=== PATIENT | male | born 1945 | race Caucasian/White ===

== ENCOUNTER → 2018-08-28 14:23 | Outpatient (CLI) | payer MEDICARE, OTHER, SELFPAY ==
--- NOTE | 2018-08-28 | DI.MRI.S_ITS ---
PROCEDURE: MR KNEE RT WO CON INDICATIONS: UNILATERAL PRIMARY OSTEOARTHRITIS OF RIGHT KNEE TECHNIQUE: Noncontrast sagittal PD fast spin echo and T2 fast spin echo with fat saturation, sagittal 3-D FLASH with fat saturation; coronal T1 spin echo and PD fast spin echo with fat saturation, and axial PD fast spin echo with fat saturation through the knee. COMPARISON: None. FINDINGS: Image quality: Excellent. Menisci: Medial extrusion of the medial meniscus. Amorphous high signal intensity within the loop medial meniscal body and posterior horn, demonstrating superior and inferior articular surface extension indicating diffuse degenerative tearing. Linear high signal intensity obliquely traverses the anterior horn lateral meniscus, demonstrating superior and inferior articular surface extension, indicating oblique tearing. Cruciate ligaments: There is moderate signal loss and mild redundancy of the anterior cruciate ligament. Posterior cruciate ligament demonstrates mild T2 signal elevation within its substance. Medial structures: There is a large amount of fluid within the mid and inferior aspects of the medial collateral ligament, measuring roughly 105 mm craniocaudal by 10 mm transverse X 10 mm anteroposterior. Visualized portions of the pes anserinus tendons appear normal. No abnormal bursal fluid. Lateral structures: The lateral collateral ligament, long and short heads of the biceps femoris tendon appear intact. The popliteus tendon appears normal. Iliotibial band appears normal. Anterior structures: The quadriceps and patellar tendons appear intact. Mild T2 signal elevation within the patellar tendon at the patellar insertion site. Patellar alignment is normal. No femoral trochlear dysplasia or ventral trochlear prominence. No edema in the infrapatellar fat pad. Moderate prepatellar subcutaneous edema. Bones and cartilage: No bone marrow contusions or fractures. Mild periarticular osteophyte formation is present. There is mild subchondral ill-defined T2 signal elevation within the weightbearing aspects of the medial femoral condyle and medial tibial plateau. There is a 1-2 mm diameter full-thickness fissure within the articular cartilage overlying the medial patellar facet. Severe diffuse articular cartilage loss overlies the weightbearing aspects of the medial femoral condyle and medial tibial plateau. Mild diffuse articular cartilage loss overlies the weightbearing aspects of the lateral femoral condyle and lateral tibial plateau. Joint space: There is a small knee joint effusion and a small Chopra's cyst. There is a small ganglion cyst along the popliteus which contains several small intra-articular loose bodies. Multiple small intra-articular loose bodies within the posterior central knee joint. Normal appearing synovial plicae are incidentally noted. The medial plica is interposed between the medial facet and medial femoral trochlea. IMPRESSION: 1. Medial and lateral meniscal tearing. 2. Partial-thickness anterior and posterior cruciate ligament tears. 3. Severe medial collateral ligament bursitis. 4. Knee joint effusion, Chopra's cyst, ganglion cyst along the popliteus, and intra-articular loose bodies as above. 5. Prepatellar bursitis. 6. Mild patellar tendinitis. 7. Tricompartmental osteoarthritis with associated articular cartilage loss as above. 8. The medial plica protrudes between the medial patellar facet and medial femoral trochlea, with a focal articular cartilage defect within the adjacent medial patellar facet. 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 Dictated by: Myra Abarca M.D. on 08/28/2018 at 16:01 Approved by: Myra Abarca M.D. on 08/28/2018 at 16:10
== END ==
PROVIDERS: PCP Physician Assistant; Visit Provider Orthopaedic Surgery
DX: M17.11 Unilateral primary osteoarthritis, right knee (principal); S83.281A Other tear of lateral meniscus, current injury, right knee, initial encounter; S83.241A Other tear of medial meniscus, current injury, right knee, initial encounter; S83.511A Sprain of anterior cruciate ligament of right knee, initial encounter; S83.521A Sprain of posterior cruciate ligament of right knee, initial encounter; M70.51 Other bursitis of knee, right knee; M70.41 Prepatellar bursitis, right knee; M25.461 Effusion, right knee; M67.462 Ganglion, left knee; M67.461 Ganglion, right knee; M76.51 Patellar tendinitis, right knee
CPT/HCPCS: 73721

== ENCOUNTER 2018-09-25 11:50 | Inpatient (IN) | payer MEDICARE, OTHER, SELFPAY ==
[2018-09-14 10:50] VITALS: BMI 29.5
[2018-09-24] VITALS (14 sets, daily range): BP systolic 118–158; BP diastolic 54–91; PULSE 64–97; RESP 12–20; TEMP 35.8–36.8; O2SAT 10–98; BMI 29.5
--- NOTE | 2018-09-24 06:00 | DI.RAD.S_ITS ---
PROCEDURE: XR KNEE RT 1TO2V INDICATIONS: total right knee TECHNIQUE: 2 view(s) of the knee acquired. COMPARISON: [facility] [place], CR, XR KNEE ARTHRITIC SERIES BI, 11/26/2017, 14:37. [facility], MR, MR KNEE RT WO CON, 08/28/2018, 14:41. [facility] [place], CR, XR BONE LENGTH SCANOGRAM, 08/28/2018, 13:39. FINDINGS: Bones: Patient is status post right knee total arthroplasty. Hardware components are in expected positions. Visualized bony structures are intact. Soft tissues: Overlying postoperative changes are noted. IMPRESSION: Expected postsurgical changes. Dictated by: Ronen Nichols M.D. on 09/24/2018 at 16:13 Approved by: Ronen Nichols M.D. on 09/24/2018 at 16:14
--- NOTE | 2018-09-24 12:27 | PM.PREOP ---
Pre-operative Note Interval Note Pre-op Check: Yes History & Physical Reviewed by Physician and Yes Exam Performed Changes: No
--- NOTE | 2018-09-24 12:30 | P.OP_ITS ---
Operative Date/Time/Diagnoses Date of procedure: 09/24/18 Time of procedure: 14:58 Pre-op diagnosis: Right knee osteoarthritis Post-op diagnosis: same Procedure & Clinicians Procedure: Right total knee arthroplasty Same procedure as scheduled: Yes Indications: The patient presents today for total knee arthroplasty after failure of conservative treatment. The nature of the procedure including the risks and benefits, alternatives, postoperative course and expected outcome were discussed and all questions answered. Consent was obtained. Operative site confirmed and marked. Surgeon: Ruslan Barry Machine Set Up Operator: Rohith Arrieta Anesthesia Type: General, Spinal, Peripheral nerve block and Local Operative Notes Findings: Severe osteoarthritis with varus alignment Closure Type: primary Specimen(s): none sent Implants & Drains: [employer] BCS: 9 femoral component, 7 tibial component, 9 mm BCS polyethylene tray and 38 x 9 mm round patella Applied: implant(s) Estimated Blood Loss (mL): 50 Blood products transfused: none Tourniquet time (min): 40 Procedure in detail: The patient was taken to the operative suite and placed under general and spinal anesthesia with an adductor nerve block. The patient was given prophylactic antibiotics prior to surgery. The patient was also given tranexamic acid, 1 g, just prior to surgery for postoperative hemostasis. The lateral knee was prepped and the joint injected with 20 mL of 1% Lidocaine with epinephrine. The knee was then prepped and draped in usual sterile fashion. The leg was exsanguinated with an Esmarch dressing and the tourniquet raised to 250 torr. A 15 cm anterior incision was made. Next a medial trivector arthrotomy was made. The extensor mechanism was marked to ensure accurate repair. Initial exposing dissection was carried out medially and laterally. The knee was then extended and the patellar thickness was measured and a cut made removing approximately 9 mm of bone with a goal of restoring normal patellar thickness. The patella was then sized and drilled. Some excess lateral bone was excised and the patellofemoral ligament released. The tourniquet was then released. The knee was then flexed and the [employer] femoral guide was placed. The anterior pins were placed and the distal rotation holes drilled. The distal cutting guide was placed and the templated distal femoral cut was made. The templating cutting block was then placed and the anterior, posterior and chamfer cuts made. The [employer] tibial guide was placed and the alignment checked along the axis of the proximal tibial with a will. The proximal tibial cut was then made with an oscillating saw. All meniscus and bony debris was then removed. Flexion extension gaps were checked. The knee was somewhat tight in both flexion and extension. Another 2 mm was resected from the tibia. There is is mild tightness medially. This was corrected with a percutaneous release of the MCL with an 18 gauge needle along with standard soft tissue releases and osteophyte resection. The soft tissues were then injected with a combination of 20 mL of half percent Marcaine with epinephrine and 20 mL of Exparel. The trial components were then placed. The knee went into essentially extension and flexion beyond 120?. There was excellent medial- lateral balance throughout motion. Patellar tracking was excellent. The trial components were removed and size is confirmed for the final implants. The knee was then exsanguinated with an Esmarch dressing and the tourniquet reapplied for cementing. The knee was cleansed with Pulsavac irrigation and dried. The final components were cemented in with high viscosity vacuum mixed bone cement with antibiotics. The knee was held in extension and the patellar clamp until the cement had adequately cured. The knee was then irrigated with dilute Betadine solution. The extensor mechanism was closed with 5 interrupted #1 Vicryl sutures in 90 degrees of flexion. The joint was then injected with a combination of 1 g of tranexamic acid and 20 mL of quarter percent Marcaine with epinephrine. The subcutaneous tissue was closed with 2-0 Vicryl. The skin was closed with david and surgical adhesive. An Aquacell dressing and Indra wrap were then applied. Complications: none Condition: stable Disposition: PACU Plan for aftercare: [facility] protocol.
[2018-09-24] MEDS: ACETAMINOPHEN 325 MG TABLET 975 MG PO ×2 (12:34→20:30)
[2018-09-24] MEDS: LACTATED RINGERS 1,000 ML 42 ML IV ×2 (12:34→15:33)
[2018-09-24] MEDS: PREGABALIN 75 MG CAPSULE PO (12:35)
[2018-09-24] MEDS: CELECOXIB 200 MG CAPSULE PO (12:35)
[2018-09-24] MEDS: fentaNYL 100 MCG/2 ML INJ 50 MCG IV (12:44)
[2018-09-24] MEDS: CEFAZOLIN 2 GM/100 ML FROZ.PIGGY IV ×2 (13:12→20:27)
[2018-09-24] MEDS: LIDOCAINE 1% W/EPI INJ 20 ML INJ (13:25)
[2018-09-24] MEDS: TRANEXAMIC ACID 1,000 MG VIAL 2000 MG INJ ×2 (13:25→13:53)
--- NOTE | 2018-09-24 13:43 | SUR.OPER ---
Supine on padded OR bed. Pillow under head, arms secured on padded armboards <90 degree abduction. Safety belt across torso. Non-operative leg secured with tape over blanket over lower leg. Operative leg secured in De[employer]o/Gregory positioner. Foam padded brace at thigh of operative leg.
[2018-09-24] MEDS: BUPIVACAINE LIPOSOME 266 MG/20 ML VIAL INJ (13:50)
[2018-09-24] MEDS: POVIDONE-IODINE 15 ML, SODIUM CHLORIDE 0.9% 250 ML TOP (13:53)
[2018-09-24] MEDS: BUPIVACAINE 0.5% W/ EPI (PF) VIAL 30 ML INJ (13:55)
--- NOTE | 2018-09-24 15:29 | SUR.PHASEI ---
Report called to SONIA Ramirez.
--- NOTE | 2018-09-24 15:47 | SUR.PHASEI ---
Pt transferred to the floor. Report to SONIA Ramirez. O2 sat 89-92%ra. Otherwise VS stable. Drsg cdi. Pt able to move ble. Pt advised to rest his rt knee as he was frequently moving the knee. IV saline locked. Belongings bag and CPAP with patient.
[2018-09-24] MEDS: LACTATED RINGERS 1,000 ML 125 ML IV (17:13)
[2018-09-24] MEDS: MEMANTINE HCL 5 MG TABLET 10 MG PO (20:30)
[2018-09-24] MEDS: ASPIRIN EC 81 MG TABLET PO (20:30)
[2018-09-24] MEDS: DONEPEZIL 5 MG TABLET 10 MG PO (20:31)
--- NOTE | 2018-09-24 22:13 | PC.NURSE ---
Patient alert to self and day of the week only. Denies pain, 97% on 2L NC, now on 1L via CPAP and sat is 93%. Lung sounds are diminished with some wheezes bilaterally in upper lobes. CMS: pt felt numb from hips to toes when he first came from PACU, now has full sensation with no paresthesia, pulses are equal. Pain is 4-5/10, will medicate as ordered. IVF infusing as ordered. Patient has already been oriented to room and use of call light. Patient has voided successfully in urinal. BA active. Will continue to monitor.
--- NOTE | 2018-09-24 23:58 | PC.NURSE ---
Addendum entered by Estella Ramirez R.N. 09/25/18 03:16: When asked states pain isn't too bad but rates severity as 6/10; agreeable to taking Ibuprofen as did not want narcotics. Original Note: Patient is alert but oriented only to self and that he is in the hospital. Did know month/day but not year. Has delayed responses and difficulty word finding. Breath sounds very diminished with inspiratory rhonchi throughout. Currently on CPAP with 1L oxygen bled in and sat is 95%. HRR. Denies nausea. BT present but denies flatus. Has been voiding per urinal; denies dysuria, frequency or urgency. Able to turn himself in bed. Indra wrap to right knee is CDI. States pain is currently 4/10 and tolerable; declines pain meds but agreeable to ice pack. CMS is intact. Wearing bilateral calf SCD's. Fall risk score is high and bed alarm is activated.
[2018-09-25] VITALS (14 sets, daily range): BP systolic 91–146; BP diastolic 53–84; PULSE 44–77; RESP 15–22; TEMP 36.3–36.7; O2SAT 94–98
[2018-09-25] MEDS: LACTATED RINGERS 1,000 ML 125 ML IV (01:42)
[2018-09-25] MEDS: IBUPROFEN 600 MG TABLET PO ×2 (03:14→09:57)
[2018-09-25] MEDS: CEFAZOLIN 2 GM/100 ML FROZ.PIGGY IV (05:11)
[2018-09-25 06:51] LABS: Hematocrit 36.3 % (41-53); Hemoglobin 12.3 g/dL (13.5-17.5)
[2018-09-25] MEDS: ROSUVASTATIN 10 MG TABLET 2.5 MG PO (08:35)
[2018-09-25] MEDS: ACETAMINOPHEN 325 MG TABLET 975 MG PO ×3 (08:36→20:33)
[2018-09-25] MEDS: CITALOPRAM 20 MG TABLET PO (08:36)
[2018-09-25] MEDS: ASPIRIN EC 81 MG TABLET PO ×2 (08:36→20:32)
[2018-09-25] MEDS: methIMAzole 5 MG TABLET PO (08:36)
[2018-09-25] MEDS: AMLODIPINE 5 MG TABLET PO (08:36)
[2018-09-25] MEDS: LISINOPRIL 5 MG TABLET PO (08:36)
[2018-09-25] MEDS: OXYCODONE IR 5 MG TABLET PO ×4 (08:44→20:32)
--- NOTE | 2018-09-25 09:08 | PT.IIE ---
Addendum entered and electronically signed by Pam Melendez PT 09/25/18 16:46: This is to certify that I have reviewed this documentation and POC Original Note: Current Diagnoses Obstructive sleep apnea (adult) (pediatric) (09/24/18) Unilateral primary osteoarthritis, right knee (09/24/18) Surgery Performed Operation Date: 09/24/18 13:30 Actual Procedures p Total Knee Arthroplasty(Right) - Ruslan Barry MD Surgical History (Last Updated 09/14/18 @ 11:29 by Amy Chavira, RN) History of blepharoplasty (Acute) History of cataract removal with insertion of prosthetic lens (Acute) Previous back surgery (Acute) Medical History (Last Updated 09/14/18 @ 11:49 by Amy Chavira RN) CAD (coronary artery disease) (Acute) COPD (chronic obstructive pulmonary disease) (Acute) Depression (Acute) Diarrhea (Acute) Eczema (Acute) Enlarged prostate (Acute) Glaucoma (Acute) Graves disease (Acute) Gum disease (Acute) History of bronchitis (Acute) History of migraine (Acute) Hyperlipidemia (Acute) Hypertension (Acute) Hyperthyroidism (Acute) Kidney stone (Acute ~2016) Ocular myasthenia gravis (Acute) Sleep apnea treated with nocturnal BiPAP (Acute) Vascular dementia (Acute) Physical Therapy Inpatient Evaluation/Re-Eval M1 PT/OT-IP Prior Functional Status Start: 09/25/18 13:32 Freq: NEEDED Status: Active Protocol: Document 09/25/18 15:13 (Rec: 09/25/18 14:00 [id number]) Medical Review Prior Functional Status Medical History Reviewed Yes Communication Pt noted to have dementia per medical history and verified by nursing. Mobility and Gait Pt previously ambulated with no AD and took frequent walks with his dog. All other mobilities including showering , bathing and self care are stated as independent. Social History Household Members spouse Number of Floors (Floors) One Floor Number of Stairs To Enter/Railing? None. Pt has a big basement but he lives entirely on the first floor. Home Environment Standard Height Toilet Walk in Shower Home Equipment Front Wheel Walker Straight Cane Raised Toilet Seat w/Armrests Shower Seat with Backrest Hand Held Shower Grab Bars Near Toilet Grab Bars In Shower Employment Status Retired Additional Social History Comment pt lives with (Cayla) who will be avaliable 16/06 to assist. M2 PT-IP Current Condition Start: 09/25/18 13:32 Freq: NEEDED Status: Active Protocol: Document 09/25/18 15:13 (Rec: 09/25/18 14:00 [id number]) Physical Therapy Current Condition Current Condition Evaluation Date 09/25/18 Treatment Diagnosis R TKA; difficulty walking Onset Date 09/24/18 Weight Bearing Status Weight Bearing Status Weight Bear as Tolerated M3 PT-IP Subjective Start: 09/25/18 13:32 Freq: NEEDED Status: Active Protocol: Document 09/25/18 15:13 (Rec: 09/25/18 14:00 [id number]) Subjective Physical Therapy Visit Type Type Initial Evaluation Visit Start Time 09:08 Visit Stop Time 09:48 Total Visit Minutes 40 Number of CHIMNEY SWEEPER Visits 0 Physical Therapy Visit Comments Patient Comments Pt agreeable to mobilize with PT. Patient Goals Plans to go home with his at d/c. Therapy Pain Assessment Pain When Pain Assessed During Mobility Pain Present Pain Present Pain Reported Location Right Knee Scale Used 4/10 at rest; 7/10 with ambulation Pain Management Techniques Apply Cold Elevation Modification of Treatment Re-positioning Timing of Activity with Medications M4 PT-IP Mobility and Gait Start: 09/25/18 13:32 Freq: NEEDED Status: Active Protocol: Document 09/25/18 15:13 (Rec: 09/25/18 14:00 [id number]) PT-Bed Mobility Assessment Supine to Sit Supine to Sit Standby Assistance Sit to Supine Sit to Supine Standby Assistance Scooting Scooting to Edge of Bed Standby Assistance PT-Transfer Assessment Sit to and From Stand Sit to and from Stand Minimal Assistance 1 Person Assistance Use of Upper Extremities Equipment Transfer Assistive Device Gait Belt Front Wheeled Walker Orthotic/Prosthetic Devices or Brace: No Transfers Transfer Destination Bed Chair Transfer Technique Stand Step Pivot Transfer Ability Level of Assist Contact Guard Assistance Minimal Assistance Use of Upper Extremities Comments Mobility Comments Resting vitals 100/54 HR 56. Supine <> sit completed SBA and no cues; pt uses BUE to assist leg. Sit <> stand is Franck x1 and max cues to use UE to push from bed/chair (and avoid walker). Standing BP 144/73 HR 82. Despite 6 additoinal sit <> stands, pt continues to need Franck x1 and max cues for hand placement. After ambulation (see below) pt completes transfer bed > chair with minAx1 to rise and CGA for stand step pivot and cues to manage walker and for foot placement. Gait Assessment Gait Gait Assistance Required: Contact Guard Assist Distance (Feet) 15 Able to Maintain Weight Bearing Status Yes During Gait Assistive Devices Assistive Device Gait Belt Front Wheeled Walker Orthotic/Prosthetic Devices or Brace: No Gait Deviations General Gait Pattern Decreased Stride Length Decreased Feet Clearance Factors Limiting Gait Function Factors Limiting Gait Function Decreased Activity Tolerance Decreased Strength Difficulty Following Directions Incoordination Limited Range of Motion Pain Poor Balance Poor Safety Awareness Comments Gait Comments Pt ambulates 15 ft in room with CGA and fww. Pt requires max cues to manage walker and to not put walker too far out in front of him. He tends to drag his R foot behind him despite max cues. PT-Balance Assessment Sitting Balance and Reactions Static Sitting Balance Ability Good Dynamic Sitting Balance Ability Good Standing Balance and Reactions Static Standing Balance Ability Good Dynamic Standing Balance Ability Fair Device Used fww M5 PT-IP Objective Assessments Start: 09/25/18 13:32 Freq: NEEDED Status: Active Protocol: Document 09/25/18 15:13 (Rec: 09/25/18 14:00 [id number]) Orientation Orientation/Cognition Level of Alertness Confusional State Orientation Name Birthday Situation Safety Awareness Decreased Safety Awareness Memory Description Short Term Impaired [employer] Impaired Comments Pt has a hard time remembering his birthday, but does remember it with some thought. Has a difficult time following and remembering instructions. Gross Range of Motion Lower Extremity ROM Assessment Right Impaired Impairments ~40 deg. L WNL Strength Lower Extremity Strength Assessment Right Impaired Hip 4 Knee 3 Ankle 5 Comments Strength Comments LLE WNL Sensation Assessment Sensation Light Touch Intact M6 PT-IP Treatment Start: 09/25/18 13:32 Freq: NEEDED Status: Active Protocol: Document 09/25/18 15:13 (Rec: 09/25/18 14:00 [id number]) Physical Therapy Treatment Education Education Provided Precautions Weight Bearing Status Post-Op Packet Safety M7 PT-IP Assessment and Plan Start: 09/25/18 13:32 Freq: NEEDED Status: Active Protocol: Document 09/25/18 15:13 (Rec: 09/25/18 14:00 [id number]) PT Summary Assessment and Plan Potential Rehabilitation Potential Good Status of Condition at Evaluation Stable Summary Impairments Pain ROM Strength Balance Coordination Cognition Bed Mobility Transfers Gait Activity Tolerance Progress Towards Goals Slow Progress - Other Assessment Summary Pt s/p R TKA with difficulty walking. He also has difficulty with following / remembering instructions. He was able to complete 15 ft. ambulation with fww and CGA with max cues to manage walker . He also requires minAx1 with max cues for sit <> stand . Recommend d/c to home with 24/7 assist of spouse and f/u OP PT once caregiver training has been completed and pt is medically stable. Goals Bed Mobility Goal Standby Assistance Transfer Goal Standby Assistance Front Wheeled Walker Gait Goal Standby Assistance Front Wheel Walker Gait Distance 100 Days to Meet Goals 3 Frequency of Treatment Frequency Of Treatment Twice a Day Treatment Plan Physical Therapy Treatment Plan Bed Mobility Training Transfer Training Gait Training Therapeutic Exercise Balance Retraining Post Op Education Discharge Planning Hot or Cold Pack Neuromuscular Re-ed Coordination Retraining Manual Therapy Other Recommendations and Next Treatment Caregiver training. Progress Focus ambulation. Recommendations To Nursing Amount of Assist Needed 1 Person Assist Discharge Recommendations PT Discharge Recommendations Home with 24/7 Assist Outpatient PT
--- NOTE | 2018-09-25 09:21 | PM.PNPO.1 ---
Subjective Date Patient Seen: 09/25/18 Time Patient Seen: 09:21 Interval history: Hospital day 2, postop day 1 following right total knee arthroplasty by Dr. Barry. Patient states he was able to rest during the night. He has not been up with physical therapy yet. Using ibuprofen and Tylenol for pain. Patient is voiding well. H&H 12.3/36.3. Exam Vital Signs (past 8 hours): - 09/25/18 05:15 09/25/18 08:05 Temperature 97.7 F 97.6 F Pulse Rate 67 71 Respiratory Rate 19 20 Blood Pressure 127/68 143/74 H Pulse Oximetry 94 95 Oxygen Delivery Method Nasal Cannula,CPAP Oxygen Flow Rate 0 Narrative Exam Narrative: Alert, responsive in no acute distress resting in bed. Right leg. Indra wrap an Aquacel dressing to right knee is dry without drainage or inflammation. No calf pain or swelling. Pulses symmetrical. Objective Labs Result Diagrams: 09/25/18 06:15 Labs: Laboratory Results - last 24 hr 09/25/18 06:15 Hgb 12.3 L Hct 36.3 L Assessment & Plan Post-op Postoperative Procedures Operation Date: 09/24/18 13:30 Actual Procedures Side Surgeon p Total Knee Arthroplasty Right Ruslan Barry MD Patient appears stable at this time. He will work with Physical therapy this morning and if he is stable he will be discharged to home. Quality VTE Deep Vein Thrombosis/Pulmonary Embolism Present on Admission: No
--- NOTE | 2018-09-25 09:32 | PM.DS.1 ---
History of Present Illness Date Patient Seen: 09/25/18 Time Patient Seen: 09:32 Chief complaint: [id number] Narrative: Patient brought in the hospital on 09/24/2018 for left anterior total hip arthroplasty by Dr. Barber. See preoperative history and physical for history of present illness. Discharge Providers Date of admission: 09/24/18 11:38 Primary care physician: Qiana Smallwood PA-C Consults: 09/24/18 16:34 Consult to Discharge Planning Routine Comment: Consult to Physical Therapy Evaluate & Treat Comment: Physician Instructions: postop TKA protocol Consult to Respiratory Therapy Evaluate & Treat Comment: Physician Instructions: Evaluate and treat Discharge provider: Nahum Andersen PA-C Discharge Date: 09/25/18 Summary Discharge Diagnosis: Status post left anterior total hip arthroplasty and abductors tear repair. Hospital Course: Patient remained stable postoperatively. Pain well controlled with ibuprofen and Tylenol. She did have postoperative anemia which was treated with ferrous gluconate and vitamin-C. Discharged home on postop day 1 after cleared by physical therapy. Status at Discharge Cognitive/behavioral status at discharge: Alert oriented no acute distress resting in bed. Functional status at discharge: uses cane/walker Overall status at discharge: patient is progressing back to baseline Time Spent with Patient Less than 30 minutes Exam Vital Signs (past 8 hours): - 09/25/18 05:15 09/25/18 08:05 Temperature 97.7 F 97.6 F Pulse Rate 67 71 Respiratory Rate 19 20 Blood Pressure 127/68 143/74 H Pulse Oximetry 94 95 Oxygen Delivery Method Nasal Cannula,CPAP Oxygen Flow Rate 0 Narrative Exam Narrative: Legs. Aquacel dressing to the left anterior hip is dry without drainage or inflammation. No calf pain or swelling. Pulses symmetrical. Patient is able to fire her quad well. Objective Labs Result Diagrams: 09/25/18 06:15 Labs: Laboratory Results - last 24 hr 09/25/18 06:15 Hgb 12.3 L Hct 36.3 L Discharge Plan Discharge Plan Patient Disposition: Home Discharge Med Rec/Prescriptions Prescriptions: New acetaminophen 325 mg Tablet 975 mg PO TID Qty: 30 RF: 0 aspirin 81 mg Tablet,Delayed Release (Dr/Ec) 81 mg PO BID 30 Days Qty: 60 RF: 0 oxycodone 5 mg capsule 5 mg PO Q4-6H PRN (Reason: pain) Qty: 30 RF: 0 Continue citalopram 20 MG tablet 20 mg OR Q DAY Qty: 0 RF: 0 methimazole 5 MG tablet 5 mg OR Q DAY Qty: 0 RF: 0 tiotropium bromide [Spiriva with HandiHaler] 18 MCG capsule, w/inhalation device 1 cap Inhalation DAILY Qty: 0 RF: 0 donepezil 10 mg Tablet 10 mg PO BEDTIME RF: 0 amlodipine 5 mg Tablet 5 mg PO DAILY RF: 0 aspirin 81 mg Tablet,Delayed Release (Dr/Ec) 81 mg PO DAILY RF: 0 lisinopril 5 mg Tablet 5 mg PO DAILY RF: 0 valacyclovir 1 gram Tablet 1,000 mg PO Q12H PRN (Reason: Outbreak) RF: 0 sildenafil 100 mg Tablet 100 mg PO DAILY PRN (Reason: Erectile Dysfunction) RF: 0 memantine 10 mg Tablet 10 mg PO BID RF: 0 rosuvastatin 5 mg Tablet 2.5 mg PO DAILY RF: 0 hydrocortisone 1 % Cream 1 applic TOPICAL BID RF: 0 Follow up/Referrals: Qiana Smallwood PA-C [Primary Care Provider] - (please follow up with your primary care provider after discharge ) Provider Discharge Instructions Diet: Diet as Tolerated Activity: Ambulate as tolerated. Use walker as needed. Cold/Heat Therapy: Ice packs to knee area as needed. Skin/Wound/Dressing Care Report to your healthcare provider any signs of infection, such as:: chills, fever, night sweats, increased pain and unusual drainage Dressing: Keep Aquacel dressing in place until postop visit. Visit Report/Discharge Packet Instructions: DI for Knee Replacement Visit Report Forms: Stroke Signs & Symptoms Discharge Data Primary Care Provider: Qiana Smallwood Attending Provider: Ruslan Barry Admit Date/Time: 09/24/18 11:38 Quality VTE Deep Vein Thrombosis/Pulmonary Embolism Present on Admission: No
[2018-09-25] MEDS: MEMANTINE HCL 5 MG TABLET 10 MG PO ×2 (09:57→20:32)
--- NOTE | 2018-09-25 12:56 | PT.IPTN ---
Addendum entered and electronically signed by Pam Melendez PT 09/25/18 16:47: This is to certify that I have reviewed this documentation and POC Original Note: Current Diagnoses Obstructive sleep apnea (adult) (pediatric) (09/24/18) Unilateral primary osteoarthritis, right knee (09/24/18) Surgery Performed Operation Date: 09/24/18 13:30 Actual Procedures p Total Knee Arthroplasty(Right) - Ruslan Barry MD Physical Therapy Treatment Note M2 PT-IP Current Condition Start: 09/25/18 13:32 Freq: NEEDED Status: Active Protocol: Document 09/25/18 09:08 (Rec: 09/25/18 14:00 [id number]) Physical Therapy Current Condition Current Condition Evaluation Date 09/25/18 Treatment Diagnosis R TKA; difficulty walking Onset Date 09/24/18 Weight Bearing Status Weight Bearing Status Weight Bear as Tolerated M3 PT-IP Subjective Start: 09/25/18 13:32 Freq: NEEDED Status: Active Protocol: Document 09/25/18 12:56 (Rec: 09/25/18 14:21 [id number]) Subjective Physical Therapy Visit Type Type Treatment Note Visit Start Time 12:56 Visit Stop Time 01:29 Total Visit Minutes 33 Number of SCORE CALLER Visits 0 Physical Therapy Visit Comments Patient Comments Pt agreeable to mobilize. His (Cayla) is present with this session and agreeable to caregiver training. Therapy Pain Assessment Pain When Pain Assessed During Mobility Pain Present Pain Present Pain Reported Location Right Knee Scale Used States pain is low at rest. 7/10 during ambulation. Pain Management Techniques Elevation Modification of Treatment Re-positioning Timing of Activity with Medications M4 PT-IP Mobility and Gait Start: 09/25/18 13:32 Freq: NEEDED Status: Active Protocol: Document 09/25/18 12:56 (Rec: 09/25/18 14:21 [id number]) PT-Bed Mobility Assessment Scooting Scooting to Edge of Bed Standby Assistance PT-Transfer Assessment Sit to and From Stand Sit to and from Stand Minimal Assistance 1 Person Assistance Use of Upper Extremities Equipment Transfer Assistive Device Gait Belt Front Wheeled Walker Orthotic/Prosthetic Devices or Brace: No Transfers Transfer Destination Chair Comments Mobility Comments Pt sitting in recliner and agrees to attempt ambulation. Denies symptoms of dizziness or lightheadedness. Pt continues to require Franck for sit <> stand and max cues for hand placement. See below (other treatment) for caregiver training/mobility this session. Gait Assessment Gait Gait Assistance Required: Contact Guard Assist Distance (Feet) 50 Able to Maintain Weight Bearing Status Yes During Gait Assistive Devices Assistive Device Gait Belt Front Wheeled Walker Orthotic/Prosthetic Devices or Brace: No Gait Deviations General Gait Pattern Decreased Stride Length Decreased Feet Clearance Factors Limiting Gait Function Factors Limiting Gait Function Decreased Activity Tolerance Decreased Strength Difficulty Following Directions Limited Range of Motion Pain Poor Balance Poor Safety Awareness Comments Gait Comments Pt ambulated 15 + 50 ft this session (seated break between to go over post-op exercises). Ambulation continues to require CGA and max cuing for fww management. No complaints of dizziness or nausea. PT-Balance Assessment Sitting Balance and Reactions Static Sitting Balance Ability Good Dynamic Sitting Balance Ability Good Standing Balance and Reactions Static Standing Balance Ability Good Dynamic Standing Balance Ability Fair Device Used fww M5 PT-IP Objective Assessments Start: 09/25/18 13:32 Freq: NEEDED Status: Active Protocol: Document 09/25/18 12:56 (Rec: 09/25/18 14:21 [id number]) Orientation Orientation/Cognition Level of Alertness Confusional State Orientation Name Situation Safety Awareness Decreased Safety Awareness Memory Description Short Term Impaired Leadite Man Impaired Comments Pt has difficulty following/ remembering instructions. Demonstrates impulsivity with movements requiring repeated cues to wait or slow down. Gross Range of Motion Lower Extremity ROM Assessment Right Impaired Impairments completed AAROME for R knee flexion/extension: PROM afterwards: ~80 degrees of flexion M6 PT-IP Treatment Start: 09/25/18 13:32 Freq: NEEDED Status: Active Protocol: Document 09/25/18 12:56 (Rec: 09/25/18 14:21 [id number]) Physical Therapy Treatment Exercises Exercises Ankle Pumps Quad Sets Heel Slides Straight Leg Raises Short Arc Quads Passive Knee Extension Hang Seated Knee Flexion/Extension Education Education Provided Precautions Weight Bearing Status Post-Op Packet Safety Other Treatments Other Treatment Performed Caregiver training completed this session. Spouse was educated in gait belt donning, and how to assist pt for sit to stand,ambulation, and proper cuing/instruction of pt . She demonstrated safe assist of pt. Also educated Caregiver/ spouse in car transfers, HEP, / assist with pt. and pt need to have fww at all times. Caregiver/ Spouse understood and agreed. M7 PT-IP Assessment and Plan Start: 09/25/18 13:32 Freq: NEEDED Status: Active Protocol: Document 09/25/18 12:56 (Rec: 09/25/18 14:21 [id number]) PT Summary Assessment and Plan Potential Rehabilitation Potential Good Status of Condition at Evaluation Stable Summary Impairments Pain ROM Strength Balance Coordination Bed Mobility Transfers Gait Activity Tolerance Progress Towards Goals Progressing Toward Goals Assessment Summary Pt able to complete 65 ft. ambulation (with seated break) this session with fww and CGA . His was able to demonstrate safe assistance of pt. Recommend d/c to home with 24/7 assist and f/u OP PT when pt is medically stable. Goals Bed Mobility Goal Standby Assistance Transfer Goal Standby Assistance Front Wheeled Walker Gait Goal Standby Assistance Front Wheel Walker Gait Distance 150 Days to Meet Goals 3 Frequency of Treatment Frequency Of Treatment Twice a Day Treatment Plan Physical Therapy Treatment Plan Bed Mobility Training Transfer Training Gait Training Therapeutic Exercise Balance Retraining Post Op Education Discharge Planning Hot or Cold Pack Neuromuscular Re-ed Coordination Retraining Manual Therapy Other Recommendations and Next Treatment Progress ambulation as Focus tolerated. Recommendations To Nursing Amount of Assist Needed 1 Person Assist Discharge Recommendations PT Discharge Recommendations Home with 24/7 Assist Outpatient PT
--- NOTE | 2018-09-25 15:27 | CM.IDA ---
Discharge Planning/Care Management CM Discharge Assessment Start: 09/25/18 15:15 Freq: Status: Active Protocol: Document 09/25/18 15:15 JUVE (Rec: 09/25/18 15:27 [email or web address] [id number]) Discharge Planning Assessment Assigned Presser Hand ERAN Christian DPOA/Assigned Designee Name Cayla Wilkinson, spouse Contact Information [phone] Advance Directives? Yes Advance Directives on File No History Provided By Patient Significant Other Prior Living Arrangements House Household Members spouse Type of transporation used prior to Relies on Others admit Independent with ADL's Yes: Dementia+ but no AD, indp in most ADLs Is patient alert and oriented? No: Dementia+ Needs Assistance With Meal Prep Home Chores / Shopping Comment Met w/pt and spouse this morning, explained SW role. Pt Dementia+, very pleasant and cooperative. Spouse explains she is the cg for pt; he is mostly indp at home. Spouse Calya says to this MANAGING BROKER she's a little concerned about pt's mobility and keeping his leg elevated. Cayla looking forward to doing cg training w /PT. Encouraged Cayla to think of specific questions for the therapy team that will make her feel more confident about returning home w/pt. Barriers to Discharge Yes Comment Rapid response called to pt's room this afternoon. Scheduled DC home is likely cancelled. Hopefully pt can still DC home once medically stable. PT= Home w/spouse and outpt PT MANAGING BROKER team will follow closely in case DC needs and/or questions arise. Discharge Plan Home Transportation Arrangement Family Referrals Initiated None needed Additional Comment Likely none needed. PT if pt meets homebound status ? Whiteboard Updated in Patient Room with Yes name and ext. # of Presser Hand
--- NOTE | 2018-09-25 16:24 | PC.NURSE ---
Day Shift- Pt did well most of shift. After working with PT for the 2nd time, pt was in the recliner chair and his Nela noticed pt to become non responsive and extremities limb, she called out in the hallway for help and a Rapid Response was called around 1325. Upon arrival, sales branch manager and coordinator in room, Pt placed in fully reclined position in chair with eyes closed, HR 37 on portable pulse ox monitor. When asked pt's name, he was able to respond with Aamir, See flowsheet for vital sign times and values. Pt was diaphoretic, asking what happened, becoming more alert over approx 5min time frame. EKG obtained and ER Physician Dr. Hansen saw EKG printout. Fang SCOTT spoke with Dr. Barry to be notified of event, order for NS 250ml bolus X1 that was given from [id number]. No need for hospitalist consult at this time. Pt placed back to bed using ceiling lift, bed alarm on, VSS.
[2018-09-25] MEDS: SODIUM CHLORIDE 0.9% FLUSH 10 ML IV (20:32)
[2018-09-25] MEDS: DONEPEZIL 5 MG TABLET 10 MG PO (20:32)
--- NOTE | 2018-09-25 22:04 | PC.NURSE ---
SHIFT NOTE Ox1-2 (occasionally knows he's at the hospital), confused and forgetful but cooperative. ZACARIAS with R knee weakness. RIKKI wrap dressing CDI. CMS intact, pt denies any numbness or tingling. c/o pain rated 7/10, administered PRN oxycodone and scheduled tylenol. pt with increased confusion when awakening from sleep, will attempt out of bed without assist but able to be redirected. Pt pulling at SCDs and BiPAP, both removed at this time. bed alarm for safety.
[2018-09-26] MEDS: IBUPROFEN 600 MG TABLET PO ×3 (00:14→12:37)
[2018-09-26 05:00] VITALS: BP 149/82; PULSE 79; RESP 15; TEMP 36.7; O2SAT 97
[2018-09-26 07:40] VITALS: PULSE 73; RESP 16; O2SAT 94
[2018-09-26] MEDS: SPIRIVA 18 MCG INH (07:40)
[2018-09-26 07:58] VITALS: BP 144/64; PULSE 74; RESP 16; TEMP 36.7; O2SAT 93
[2018-09-26] MEDS: CITALOPRAM 20 MG TABLET PO (09:32)
[2018-09-26] MEDS: ASPIRIN EC 81 MG TABLET PO (09:32)
[2018-09-26] MEDS: MEMANTINE HCL 5 MG TABLET 10 MG PO (09:32)
[2018-09-26] MEDS: AMLODIPINE 5 MG TABLET PO (09:32)
[2018-09-26] MEDS: LISINOPRIL 5 MG TABLET PO (09:32)
[2018-09-26] MEDS: ROSUVASTATIN 10 MG TABLET 2.5 MG PO (09:32)
[2018-09-26] MEDS: ACETAMINOPHEN 325 MG TABLET 975 MG PO (09:33)
[2018-09-26] MEDS: methIMAzole 5 MG TABLET PO (09:35)
[2018-09-26] MEDS: SODIUM CHLORIDE 0.9% FLUSH 10 ML IV (09:36)
--- NOTE | 2018-09-26 09:58 | PM.DS.1 ---
History of Present Illness Date Patient Seen: 09/26/18 Time Patient Seen: 09:58 Chief complaint: [id number] Narrative: Patient states his pain is mild. Denies fever chills. Otherwise without complaints. Discharge Providers Date of admission: 09/24/18 11:38 Primary care physician: Qiana Smallwood PA-C Consults: 09/24/18 16:34 Consult to Discharge Planning Routine Comment: Consult to Physical Therapy Evaluate & Treat Comment: Physician Instructions: postop TKA protocol Consult to Respiratory Therapy Evaluate & Treat Comment: Physician Instructions: Evaluate and treat Discharge provider: Rohith Arrieta PA-C Discharge Date: 09/26/18 Summary Discharge Diagnosis: Status post right total knee arthroplasty Hospital Course: Patient admitted to the hospital after failing conservative treatment for severe right knee osteoarthritis. Patient admitted and consented for right total knee arthroplasty. Patient taken operating room underwent right total knee arthroplasty. Patient back in his room recovering well and is in stable condition. Exam Vital Signs (past 8 hours): - 09/26/18 05:00 09/26/18 07:40 09/26/18 07:58 Temperature 98.1 F 98.1 F Pulse Rate 79 73 74 Respiratory Rate 15 16 16 Blood Pressure 149/82 H 144/64 H Pulse Oximetry 97 94 93 Oxygen Delivery Method Room Air Oxygen Flow Rate 0 Narrative Exam Narrative: Pleasant 73-year-old male resting comfortably in bed in no apparent distress. Right knee dressing is clean, dry and intact. Sensation grossly intact to light touch right lower extremity. Motor functions intact distal right lower extremity. Objective Labs Result Diagrams: 09/25/18 06:15 Discharge Plan Discharge Plan Patient Disposition: Home Discharge comment: DC home today Discharge Med Rec/Prescriptions Prescriptions: Continue citalopram 20 MG tablet 20 mg OR Q DAY Qty: 0 RF: 0 methimazole 5 MG tablet 5 mg OR Q DAY Qty: 0 RF: 0 tiotropium bromide [Spiriva with HandiHaler] 18 MCG capsule, w/inhalation device 1 cap Inhalation DAILY Qty: 0 RF: 0 donepezil 10 mg Tablet 10 mg PO BEDTIME RF: 0 amlodipine 5 mg Tablet 5 mg PO DAILY RF: 0 aspirin 81 mg Tablet,Delayed Release (Dr/Ec) 81 mg PO DAILY RF: 0 lisinopril 5 mg Tablet 5 mg PO DAILY RF: 0 valacyclovir 1 gram Tablet 1,000 mg PO Q12H PRN (Reason: Outbreak) RF: 0 sildenafil 100 mg Tablet 100 mg PO DAILY PRN (Reason: Erectile Dysfunction) RF: 0 memantine 10 mg Tablet 10 mg PO BID RF: 0 rosuvastatin 5 mg Tablet 2.5 mg PO DAILY RF: 0 hydrocortisone 1 % Cream 1 applic TOPICAL BID RF: 0 Follow up/Referrals: Qiana Smallwood PA-C [Primary Care Provider] - (please follow up with your primary care provider after discharge ) Provider Discharge Instructions Diet: Diet as Tolerated Activity: Ambulate as tolerated. Use walker as needed. Cold/Heat Therapy: Ice packs to knee area as needed. Other treatments: Patient to take aspirin 81 mg b.i.d., oxycodone 5 mg tablet every 3 hr as needed for pain, Tylenol 1000 mg 3 times daily, ibuprofen 600 mg every 6 hr daily. Skin/Wound/Dressing Care Report to your healthcare provider any signs of infection, such as:: chills, fever, night sweats, increased pain and unusual drainage Dressing: Keep Aquacel dressing in place until postop visit. Visit Report/Discharge Packet Instructions: DI for Knee Replacement Visit Report Forms: Stroke Signs & Symptoms Discharge Data Primary Care Provider: Qiana Smallwood Attending Provider: Ruslan Barry Admit Date/Time: 09/24/18 11:38 Quality VTE Deep Vein Thrombosis/Pulmonary Embolism Present on Admission: No
[2018-09-26 11:46] VITALS: BP 137/74; PULSE 75; RESP 18; TEMP 36.7; O2SAT 94
--- NOTE | 2018-09-26 12:52 | CM.DPC ---
DCP Discharge Home Per MD, pt now medically stable to d/c home today after pt had rapid response called yesterday and d/c had been cancelled. No barriers to discharge identified for today. Plan: Patient to d/c home today via spouse POV and no SW needs at this time. ERAN Lee
--- NOTE | 2018-09-26 13:01 | PC.NURSE ---
Pt getting dressed and is ready for discharge home with Spouse. Meds returned from pharmacy. Saline lock removed. Went over d/c instructions with Pt and Spouse-discussed d/c meds, time of last dose, reviewed stroke education. Encouraged fluid intake. Pt and Spouse deny further questions. Pt will be taken out via w/c by [employer] ACQUISITION SPECIALIST with Spouse and all belongings.
== END 2018-09-26 13:30 | disposition home or self-care (01) | DRG 470 ==
LOC: AC 12:11 → OR 09-27 07:41 → AC 09-27 07:42 → OR 09-27 07:50
PROVIDERS: Admitting Provider Orthopaedic Surgery; PCP Physician Assistant; Visit Provider Orthopaedic Surgery
PROC: 0SRC0JZ Replacement of Right Knee Joint with Synthetic Substitute, Open Approach (ICD-10-PCS; CPT 27447; principal; 2018-09-24 13:30)
DX: M17.11 Unilateral primary osteoarthritis, right knee (principal); I10 Essential (primary) hypertension; I51.9 Heart disease, unspecified; F32.9 Major depressive disorder, single episode, unspecified; I25.10 Atherosclerotic heart disease of native coronary artery without angina pectoris; J44.9 Chronic obstructive pulmonary disease, unspecified; Z87.891 Personal history of nicotine dependence; G47.33 Obstructive sleep apnea (adult) (pediatric); G70.00 Myasthenia gravis without (acute) exacerbation; E78.5 Hyperlipidemia, unspecified; E05.00 Thyrotoxicosis with diffuse goiter without thyrotoxic crisis or storm
CPT/HCPCS: 36415; 64447; 73560; 85014; 85018; 93005; 94640; 94760; 97116; 97162; 97530; C1776; C9290; J0690; J1100; J2405; J2704; J2795; J3010

== ENCOUNTER → 2018-11-04 11:45 | Outpatient (CLI) | payer MEDICARE, OTHER, SELFPAY ==
[2018-09-24 15:45] VITALS: BMI 29.5
--- NOTE | 2018-11-04 | DI.RAD.S_ITS ---
PROCEDURE: XR CERVICAL SPINE 4V OR 5V INDICATIONS: CERVICALGIA TECHNIQUE: 5 views of the cervical spine acquired. COMPARISON: None. FINDINGS: Bones: No fractures or dislocations to the C7 level. Oblique images demonstrate no bony foraminal stenoses. Severe degenerative changes are present throughout the cervical spine including intervertebral disc space narrowing, endplate sclerosis, and flowing osteophytes. There is mild neuroforaminal narrowing bilaterally from C2-3 through C4-5. There is severe left neuroforaminal narrowing at C5-6, C6-7, and C7-T1. There is moderate right neuroforaminal narrowing at C5-6 and C6-7. Soft tissues: No prevertebral soft tissue swelling. IMPRESSION: 1. Degenerative change and foraminal stenosis most severe on the left at C5-6, C6-7, and C7-T1. Dictated by: Cyndi Jean Baptiste M.D. on 11/04/2018 at 14:55 Approved by: Cyndi Jean Baptiste M.D. on 11/04/2018 at 14:57
== END ==
PROVIDERS: PCP Physician Assistant; Visit Provider Physician Assistant
DX: M54.2 Cervicalgia (principal); M47.812 Spondylosis without myelopathy or radiculopathy, cervical region; M47.813 Spondylosis without myelopathy or radiculopathy, cervicothoracic region; M48.02 Spinal stenosis, cervical region; M48.03 Spinal stenosis, cervicothoracic region
CPT/HCPCS: 72050

== ENCOUNTER → 2019-01-22 11:30 | Outpatient (CLI) | payer MEDICARE, OTHER, SELFPAY ==
[2018-09-24 15:45] VITALS: BMI 29.5
--- NOTE | 2019-01-22 | DI.MRI.S_ITS ---
PROCEDURE: MR CERVICAL SPINE WO CON INDICATIONS: CERVICAL DISC DEGENERATION TECHNIQUE: Noncontrast sagittal T1 spin echo and T2 fast spin echo, sagittal STIR, foraminal oblique sagittal T2 fast spin echo, and axial gradient echo or T2 fast spin echo through the cervical spine. COMPARISON: [facility], MR, C-SPINE WITHOUT CONTRAST, 07/14/2008, 16:38. [facility], CR, XR CERVICAL SPINE 4V OR 5V, 11/04/2018, 11:55. FINDINGS: Image quality: Excellent. Alignment and Curvature: There is normal bony alignment. Bone Marrow: Marrow demonstrates normal overall signal. Spinal Cord: Visualized spinal cord has normal size and signal. No cerebellar tonsillar herniation. Paraspinous Soft Tissues: Incompletely visualized right thyroid mass measuring at least 44 mm. The Prevertebral soft tissues are normal in thickness. C2-C3: Moderate disc desiccation. Mild facet hypertrophy bilaterally. No significant canal, nor foraminal stenosis. No change. C3-C4: Moderate disc desiccation. Mild diffuse disc bulge with superimposed small central protrusion. Mild facet and uncovertebral hypertrophy. Mild canal stenosis. Mild bilateral foraminal stenosis. No change. C4-C5: Moderate disc desiccation. Mild diffuse disc bulge with superimposed left paracentral protrusion. Mild facet and uncovertebral hypertrophy. Increased, moderate to severe canal stenosis. Mild cord flattening, which is slightly increased. Moderate foraminal stenosis bilaterally. C5-C6: Moderate disc desiccation and diffuse disc bulge/osteophyte. Right greater than left facet and uncovertebral hypertrophy. Moderate canal stenosis. Severe left greater than right foraminal stenosis. Bilateral intraforaminal C6 nerve root flattening. No change. C6-C7: Moderate disc height loss and desiccation. Moderate diffuse disc bulge. Moderate facet and uncovertebral hypertrophy. Moderate canal stenosis is unchanged. Increased, severe left and moderate right foraminal stenosis. There is new left C7 nerve root flattening. C7-T1: Moderate disc desiccation and mild diffuse disc bulge. Bilateral facet hypertrophy. Mild canal stenosis. No foraminal stenosis. No change. IMPRESSION: 1. Multilevel degenerative disc and facet disease, as well as uncovertebral hypertrophy. 2. Multilevel canal stenoses, with associated cord flattening at C4-C5, which is slightly increased. 3. Multilevel foraminal stenoses, worst at C5-C6 bilaterally, and C6-C7 on the left, where there is associated intraforaminal neural flattening. 4. Incompletely visualized right thyroid mass, which could be further assessed with ultrasound, if clinically indicated. Dictated by: Myra Abarca M.D. on 01/22/2019 at 13:31 Approved by: Myra Abarca M.D. on 01/22/2019 at 13:42
== END ==
PROVIDERS: PCP Physician Assistant; Visit Provider Physician Assistant
DX: M50.31 Other cervical disc degeneration, high cervical region (principal); M48.02 Spinal stenosis, cervical region; E07.9 Disorder of thyroid, unspecified
CPT/HCPCS: 72141

== ENCOUNTER → 2019-01-30 12:36 | Outpatient (CLI) | payer MEDICARE, OTHER, SELFPAY ==
[2018-09-24 15:45] VITALS: BMI 29.5
--- NOTE | 2019-01-30 | DI.MRI.S_ITS ---
PROCEDURE: MR HEAD/BRAIN WO CON INDICATIONS: DEMENTIA WITHOUT BEHAVIORAL DISTURBANCE TECHNIQUE: Non-contrast axial T1 spin echo, axial T2 fast spin echo, sagittal and axial FLAIR, coronal T2 fast spin echo, axial gradient echo, axial diffusion and ADC through the brain. COMPARISON: [facility], MR, MR BRAIN WO CON, 07/28/2015, 17:28. FINDINGS: Image quality: Excellent. CSF spaces: Ventricles appear symmetric in size and shape. Basal cisterns are patent. No extra-axial fluid collections. Brain: No intracranial bleeds or mass effects. There is cerebral volume loss for age. There are periventricular and deep white matter chronic small vessel ischemic changes. Brainstem appears normal. Diffusion-weighted images show no acute ischemic insults. No chronic ischemic insults. Normal intravascular flow voids are present. Skull and face: Calvarial bone marrow is normal in signal. Orbits are normal. Sinuses: Sinuses and mastoids are clear. IMPRESSION: 1. Volume loss and small vessel ischemic disease. 2. No acute process. No recent infarct. Dictated by: Myra Abarca M.D. on 02/01/2019 at 9:17 Approved by: Myra Abarca M.D. on 02/01/2019 at 9:18
== END ==
PROVIDERS: PCP Physician Assistant; Visit Provider Specialist
DX: F03.90 Unspecified dementia, unspecified severity, without behavioral disturbance, psychotic disturbance, mood disturbance, and anxiety (principal)
CPT/HCPCS: 70551

== ENCOUNTER → 2019-02-18 13:47 | Outpatient (CLI) | payer MEDICARE, OTHER, SELFPAY ==
[2018-09-24 15:45] VITALS: BMI 29.5
--- NOTE | 2019-02-18 | DI.CT.S_ITS ---
PROCEDURE: CT CHEST WO CON INDICATIONS: SOLITARY PULMONARY NODULE TECHNIQUE: Noncontrast 2.0-2.5 mm thick sections acquired from the pulmonary apices to the posterior costophrenic angles. 7 mm thick coronal and sagittal MIP reformats were then acquired. A low radiation dose technique was utilized. COMPARISON: [facility], CT, THORAX WITHOUT CONTRAST, 01/27/2018, 10:38. FINDINGS: Image quality: Diagnostic, given the low radiation dose technique. Lungs and pleura: No change in the small subpleural nodule posterior left upper lobe near the superior margin of the major fissure, no change in the lingular segment local angular radiodensity that likely is scarring within the anterior lower left chest. No new nodule has developed. Mediastinum: Heart size is normal. No pericardial effusion. No mediastinal adenopathy by size criteria. Thoracic aorta and central pulmonary arteries are normal in size. Esophagus is normal in caliber. No hiatal hernia. Bones and chest wall: No suspicious bony lesions. No vertebral body compression fractures. No axillary or supraclavicular adenopathy by size criteria. Thyroid gland is not well-seen given the absence of intravenous contrast but the right thyroid lobe enlargement appears stable over time with deviation of the tracheal airway mildly from right to left.. Abdomen: Visualized upper abdomen solid organs and bowel loops appear normal in the absence of contrast. IMPRESSION: 2 benign left-sided lung nodules, requiring no followup. These have been stable since February of 2017. Asymmetric enlargement of the right thyroid lobe again seen, virtually identical to prior studies. This has been previously reported and has not appreciably changed over time. Dictated by: Earnest Bullard M.D. on 02/18/2019 at 18:21 Approved by: Earnest Bullard M.D. on 02/18/2019 at 18:26
== END ==
PROVIDERS: PCP Physician Assistant; Visit Provider Physician Assistant
DX: R91.8 Other nonspecific abnormal finding of lung field (principal); E04.9 Nontoxic goiter, unspecified
CPT/HCPCS: 71250

== ENCOUNTER → 2019-06-28 13:17 | Outpatient (CLI) | payer MEDICARE, OTHER, SELFPAY ==
[2018-09-24 15:45] VITALS: BMI 29.5
--- NOTE | 2019-06-28 | DI.US.S_ITS ---
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 COMPARISON: [facility], MR, MR HEAD/BRAIN WO CON, 01/30/2019, 12:40. FINDINGS: Right: Thyroid lobe measures 6.3 x 3.5 x 2.8 cm, and is homogeneous in echotexture. Left: Thyroid lobe measures 4.4 x 1.8 x 2.5 cm, and is homogenous in echotexture. Isthmus: 9.0 mm thick. Nodule number: 1 Location: Right mid inferior Size: 4.0 x 3.1 x 3.2 cm. Composition: Predominantly solid Echogenicity: Hypoechoic Shape: wider than tall. Margins: Smooth Echogenic foci: Internal punctate echogenic foci Total points: 7 ACR TI-RADS category: Highly suspicious Nodule number: 2 Location: Right mid to superior Size: 1.1 x 0.8 x 1.2 cm. Composition: Cystic Echogenicity: Anechoic Shape: wider than tall. Margins: Smooth Echogenic foci: Common tail artifact. Total points: 0 ACR TI-RADS category: Benign cyst. Nodule number: 3 Location: Left mid Size: 1.2 x 1.0 x 1.2 cm. Composition: Predominately solid Echogenicity: Heterogeneous Shape: wider than tall. Margins: No Echogenic foci: Smooth Total points: 6 ACR TI-RADS category: Moderately suspicious IMPRESSION: Bilateral thyroid nodules as above. Recommend sonographically directed fine needle aspiration involving the # 1 right thyroid nodule and continued sonographic surveillance of the additional nodules as detailed below. ACR TI-RADS definitions and recommendations: TI-RADS 1 (benign): 0 points. FNA not needed. TI-RADS 2 (not suspicious): 2 points. FNA not needed. TI-RADS 3 (mildly suspicious): 3 points. * FNA if 2.5 cm or larger, follow up if 1.5 cm or larger (at 1, 3, and 5 years). TI-RADS 4 (moderately suspicious): 4-6 points. * FNA if 1.5 cm or larger, follow up if 1 cm or larger (at 1, 2, 3, and 5 years). TI-RADS 5 (highly suspicious): 7 points or more. * FNA if 1 cm or larger, follow up if 0.5 cm or larger (every year for 5 years). Dictated by: Frederick FERRARO Interpreted: Earnest Bullard MD on 06/28/2019 at 15:03 Approved by: Earnest Bullard M.D. on 06/29/2019 at 8:17
[2019-06-28 14:57] LABS: Add Manual Diff / Slide Review NO; Basophils Absolute Auto 0 /uL (0-100); Basophils Percent Auto 0.4 % (0-2); Eosinophils Absolute Auto 100 /uL (0-450); Eosinophils Percent Auto 1.9 % (2-4); Hematocrit 42.4 % (41-53); Hemoglobin 14.1 g/dL (13.5-17.5); Lymphocytes Absolute Auto 1600 /uL (1100-4500); Lymphocytes Percent Auto 27.4 % (25-40); Mean Corpuscular HGB Conc 33.3 % (30-36); Mean Corpuscular Hemoglobin 30.1 PG (26-34); Mean Corpuscular Volume 90.4 fL (80-100); Monocytes Absolute Auto 400 /uL (0-900); Monocytes Percent Auto 7.8 % (3-14); Neutrophils Absolute Auto 3600 /uL (1500-7000); Neutrophils Percent Auto 62.5 % (50-75); Platelet Count 248 X10^3/uL (150-400); Red Blood Cell Count 4.69 X10^6/uL (4.5-5.9); Red Cell Distribution Width 14.6 % (11.6-14.8); White Blood Cell Count 5.8 X10^3/uL (4.5-11.0)
[2019-06-28 15:58] LABS: Alanine Aminotransferase 16 IU/L (21-72); Albumin 4.3 g/dL (3.5-5.0); Albumin Globulin Ratio 1.3 (1.0-2.8); Alkaline Phosphatase 72 U/L (38-126); Aspartate Aminotransferase 22 IU/L (17-59); BUN Creatinine Ratio 23.8 (6-22); Bilirubin Total 0.4 mg/dL (0.2-1.3); Blood Urea Nitrogen 19 mg/dL (9-20); Calcium 9.5 mg/dL (8.4-10.2); Carbon Dioxide 29 mmol/L (22-32); Chloride 101 mmol/L (98-107); Estimated Glomerular Filt Rate > 60.0 mL/min (>60); Globulin 3.2 g/dL (1.7-4.1); Glucose 79 mg/dL (80-110); HEMOLYSIS < 15 (0-50); Potassium 4.1 mmol/L (3.4-5.1); Sodium 140 mmol/L (137-145); Total Protein 7.5 g/dL (6.3-8.2)
[2019-06-28 16:10] LABS: Free T4, Direct Thyroxine 0.78 ng/dL (0.78-2.19)
[2019-06-28 16:24] LABS: Thyroid Stimulating Hormone 3.35 uIU/mL (0.47-4.68)
== END ==
PROVIDERS: PCP Internal Medicine; Visit Provider Internal Medicine
DX: E05.20 Thyrotoxicosis with toxic multinodular goiter without thyrotoxic crisis or storm (principal); Z51.81 Encounter for therapeutic drug level monitoring
CPT/HCPCS: 36415; 76536; 80053; 84439; 84443; 85025

== ENCOUNTER → 2019-08-02 11:22 | Outpatient (CLI) | payer MEDICARE, OTHER, SELFPAY ==
[2018-09-24 15:45] VITALS: BMI 29.5
[2019-08-02 14:39] LABS: Clostridium Difficile Tox PCR Negative for C. diff
[2019-08-02 15:28] LABS: Add Manual Diff / Slide Review NO; Basophils Absolute Auto 0 /uL (0-100); Basophils Percent Auto 0.3 % (0-2); Eosinophils Absolute Auto 200 /uL (0-450); Eosinophils Percent Auto 2.3 % (2-4); Hematocrit 43.4 % (41-53); Hemoglobin 14.7 g/dL (13.5-17.5); Lymphocytes Absolute Auto 1700 /uL (1100-4500); Lymphocytes Percent Auto 24.2 % (25-40); Mean Corpuscular HGB Conc 33.9 % (30-36); Mean Corpuscular Hemoglobin 30.8 PG (26-34); Monocytes Absolute Auto 400 /uL (0-900); Monocytes Percent Auto 5.9 % (3-14); Neutrophils Absolute Auto 4900 /uL (1500-7000); Neutrophils Percent Auto 67.3 % (50-75); Platelet Count 271 X10^3/uL (150-400); Red Blood Cell Count 4.77 X10^6/uL (4.5-5.9); Red Cell Distribution Width 14.2 % (11.6-14.8); White Blood Cell Count 7.2 X10^3/uL (4.5-11.0)
[2019-08-02 15:40] LABS: Erythrocyte Sedimentation Rate 5 MM/HR (0-15)
[2019-08-02 15:44] LABS: Alanine Aminotransferase 18 IU/L (21-72); Albumin 4.4 g/dL (3.5-5.0); Albumin Globulin Ratio 1.5 (1.0-2.8); Alkaline Phosphatase 74 U/L (38-126); Aspartate Aminotransferase 24 IU/L (17-59); BUN Creatinine Ratio 18.8 (6-22); Bilirubin Total 0.4 mg/dL (0.2-1.3); Blood Urea Nitrogen 15 mg/dL (9-20); Calcium 9.9 mg/dL (8.4-10.2); Carbon Dioxide 29 mmol/L (22-32); Chloride 100 mmol/L (98-107); Estimated Glomerular Filt Rate > 60.0 mL/min (>60); Glucose 99 mg/dL (80-110); HEMOLYSIS < 15 (0-50); Potassium 4.5 mmol/L (3.4-5.1); Sodium 138 mmol/L (137-145); Total Protein 7.4 g/dL (6.3-8.2)
[2019-08-02 15:59] LABS: C-Reactive Protein Quant < 0.5 mg/dL (<1.0); Free T3, Triiodothyronine Free 3.26 pg/mL (2.77-5.27); Free T4, Direct Thyroxine 0.95 ng/dL (0.78-2.19)
[2019-08-02 16:13] LABS: Thyroid Stimulating Hormone 2.79 uIU/mL (0.47-4.68)
[2019-08-02 21:48] LABS: Occult Blood 1 Negative (Negative)
[2019-08-04 15:01] LABS: Fecal Fat, Qualitative NORMAL (NORMAL)
== END ==
PROVIDERS: PCP Internal Medicine; Visit Provider Internal Medicine
DX: R19.7 Diarrhea, unspecified (principal)
CPT/HCPCS: 36415; 80053; 82270; 82710; 84439; 84443; 84481; 85025; 85651; 86140; 87045; 87177; 87205; 87493; 87899

== ENCOUNTER → 2020-09-04 09:21 | Outpatient (CLI) | payer MEDICARE, OTHER, SELFPAY ==
[2020-08-04 11:43] VITALS: BMI 29.5
[2020-09-04 10:33] LABS: Add Manual Diff / Slide Review NO; Basophils Absolute Auto 0 /uL (0-100); Basophils Percent Auto 0.3 % (0-2); Eosinophils Absolute Auto 100 /uL (0-450); Eosinophils Percent Auto 1.6 % (2-4); Hematocrit 45.6 % (41-53); Hemoglobin 15.4 g/dL (13.5-17.5); Lymphocytes Absolute Auto 1400 /uL (1100-4500); Lymphocytes Percent Auto 28.2 % (25-40); Mean Corpuscular HGB Conc 33.8 % (30-36); Mean Corpuscular Hemoglobin 31.2 PG (26-34); Mean Corpuscular Volume 92.2 fL (80-100); Monocytes Absolute Auto 300 /uL (0-900); Monocytes Percent Auto 6.7 % (3-14); Neutrophils Absolute Auto 3200 /uL (1500-7000); Neutrophils Percent Auto 63.2 % (50-75); Platelet Count 237 X10^3/uL (150-400); Red Blood Cell Count 4.95 X10^6/uL (4.5-5.9); Red Cell Distribution Width 13.6 % (11.6-14.8)
[2020-09-04 10:51] LABS: Alanine Aminotransferase 17 IU/L (<50); Albumin 4.6 g/dL (3.5-5.0); Albumin Globulin Ratio 1.4 (1.0-2.8); Alkaline Phosphatase 63 U/L (38-126); Aspartate Aminotransferase 27 IU/L (17-59); BUN Creatinine Ratio 19.5 (6-22); Bilirubin Total 0.6 mg/dL (0.2-1.3); Blood Urea Nitrogen 16 mg/dL (9-20); Calcium 9.8 mg/dL (8.4-10.2); Carbon Dioxide 32 mmol/L (22-32); Chloride 101 mmol/L (98-107); Cholesterol 158 mg/dL (140-199); Estimated Glomerular Filt Rate > 60.0 mL/min (>60); Globulin 3.2 g/dL (1.7-4.1); Glucose 96 mg/dL (80-110); HDL Cholesterol 49 mg/dL (40-60); HEMOLYSIS < 15 (0-50); LDL Cholesterol Calculated 91 mg/dL (<100); Potassium 4.8 mmol/L (3.4-5.1); Sodium 138 mmol/L (137-145); Total Protein 7.8 g/dL (6.3-8.2); Triglycerides 89 mg/dL (35-150)
[2020-09-04 11:10] LABS: Free T3, Triiodothyronine Free 2.73 pg/mL (2.77-5.27); Free T4, Direct Thyroxine 0.78 ng/dL (0.78-2.19)
[2020-09-04 11:23] LABS: Prostate Specific Antigen Scrn 0.473 ng/mL (0.1-4.0)
== END ==
PROVIDERS: PCP Family Medicine; Referring Provider Family Medicine; Visit Provider Family Medicine
DX: E05.00 Thyrotoxicosis with diffuse goiter without thyrotoxic crisis or storm (principal); E78.5 Hyperlipidemia, unspecified; G70.00 Myasthenia gravis without (acute) exacerbation; I10 Essential (primary) hypertension; Z12.5 Encounter for screening for malignant neoplasm of prostate
CPT/HCPCS: 36415; 80053; 80061; 84439; 84443; 84481; 85025; G0103

== ENCOUNTER 2020-11-10 11:49 | Emergency (ER) | payer MEDICARE, OTHER, SELFPAY ==
[2020-08-04 11:43] VITALS: BMI 29.5
[2020-11-10] VITALS (11 sets, daily range): BP systolic 144–194; BP diastolic 68–94; PULSE 69–91; RESP 18–20; TEMP 37.3; O2SAT 94–98; BMI 29.5
--- NOTE | 2020-11-10 12:24 | DI.US.S_ITS ---
PROCEDURE: US SCROTUM INDICATIONS: SWELLING TO SCROTUM TECHNIQUE: Real-time scanning was performed of the scrotum and testicles, with image documentation. Color and pulse Doppler interrogation was performed of both testicles. COMPARISON: None. FINDINGS: Right: Testicle is normal in size at 5.5 x 3.3 x 2.6 cm, and homogenous in echotexture. Epididymis is normal in overall size and morphology. A simple epididymal cyst is present in the epididymal head measuring 5 x 3 mm. No hydrocele or varicoceles. Overlying scrotal skin is normal in thickness. There is scrotal wall thickening with mildly increased vascularity. A large fluid collection with debris and internal septa is present measuring 8.4 x 6.5 x 5.4 cm (estimated volume 155 cc). Left: Testicle is normal in size at 4.5 x 2.7 x 2.9 cm, and homogeneous in echotexture. Epididymis is normal in overall size and morphology. A simple epididymal head cyst is present measuring 5 x 4 mm. No hydrocele or varicoceles. Overlying scrotal skin is normal in thickness. Doppler: Color and pulse Doppler demonstrate normal and symmetric arterial flow in both testicles. The resistive index of the right scrotum is mildly elevated at 0.77. IMPRESSION: 1. Both testicles demonstrate normal size and homogeneous echotexture. There are both arterial and venous flows on Doppler ultrasound. 2. The right testicle demonstrates mildly increased resistive index (0.77; normal less than 0.75). The clinical significance of the finding is indeterminate. If there is clinical suspicion for intermittent torsion, repeat exam is suggested. 3. A large fluid collection in the right scrotum with internal echo and septa. Differential diagnosis include hydrocele, pyocele or hematocele. 4. No findings to suggest epididymitis. Small simple epididymal cysts are present bilaterally. 5. There is right scrotal wall thickening with mildly increased vascularity, suggesting scrotal cellulitis. Dictated by: Ronen Nichols M.D. on 11/10/2020 at 14:21 Approved by: Ronen Nichols M.D. on 11/10/2020 at 14:48
--- NOTE | 2020-11-10 12:28 | ED_ITS ---
HPI - Male Genitourinary <JOSE Paez - Last Filed: 11/10/20 15:39> General Chief complaint: Urogenital-Male Stated complaint: enlarged testicle Time Seen by Provider: 11/10/20 12:06 Source: patient Mode of arrival: Family Vehicle Limitations: no limitations History of Present Illness HPI Narrative: This is a 75 year male, former smoker, has medical history significant for CAD with cardiac stent, enlarged prostate, hyperthyroidism, dementia, hypertension, hyperlipidemia presents to ED with significant other with chief complain of testicular swelling for at least 2 weeks. Patient denies pain, urinary difficulty, fever, chills, nausea or vomiting, or abdominal pain. Patient denies history of heart failure or swelling to his legs. Significant other reports slight redness in scrotal region but denies hot to touch. Patient denies similar symptoms in the past. Patient had history of kidney stone about 7 years ago and had surgery to remove the stone at [facility] urology. Related Data Home Medications Medication Instructions Recorded Confirmed aspirin 81 mg PO DAILY 09/14/18 09/22/20 loratadine 10 mg tablet 10 mg PO DAILY 08/31/20 09/22/20 vitamin B complex 1 tab PO DAILY 08/31/20 09/22/20 Previous Rx's Medication Instructions Recorded albuterol sulfate 90 mcg/actuation 2 puff INHALATION Q6H PRN #18 gram 10/07/19 aerosol inhaler citalopram 40 mg tablet 40 mg PO DAILY #90 tab 01/26/20 memantine 10 mg tablet 10 mg PO BID #180 tab 01/26/20 rosuvastatin 5 mg tablet 5 mg PO DAILY #90 tab 01/26/20 sildenafil 100 mg tablet 100 mg PO DAILY PRN #10 tab 01/26/20 tiotropium bromide 18 mcg capsule 1 cap INHALATION DAILY #90 01/26/20 with inhalation device inhalation valacyclovir 1 gram tablet 1,000 mg PO Q12H PRN #10 tab 01/26/20 amlodipine 5 mg tablet 5 mg PO DAILY #90 tab 05/15/20 lisinopril 5 mg tablet 5 mg PO DAILY #90 tab 05/15/20 donepezil 10 mg tablet 10 mg PO BEDTIME #90 tab 08/31/20 methimazole 5 mg tablet 5 mg PO DAILY #90 tab 08/31/20 ibuprofen 800 mg tablet 800 mg PO DAILY #90 tab 09/21/20 clotrimazole-betamethasone 1 1 applictn TOP BID 14 Days #45 gram 09/22/20 %-0.05 % topical cream cephalexin [Keflex] 500 mg PO QID 7 Days #28 cap 11/10/20 Allergies Allergy/AdvReac Type Severity Reaction Status Date / Time ezetimibe Allergy Mild Joint/Muscle Verified 09/22/20 09:22 Pain atorvastatin AdvReac Mild Joint/Muscle Verified 09/22/20 09:22 Pain simvastatin AdvReac Mild Joint/Muscle Verified 09/22/20 09:22 Pain Review of Systems <JOSE Paez - Last Filed: 11/10/20 15:39> Review of Systems Narrative: General: Denies fever, chills, fatigue, malaise, sweats. HEENT: Denies sinus pain, ear pain, sore throat, difficulty swallowing, dizziness. Respiratory: Denies (+) mild dyspnea when wearing a mask for covid precaution, cough, wheezing, hemoptysis, sputum. Cardiovascular: Denies chest pain, palpitations, orthopnea, edema. Gastrointestinal: Denies nausea, vomiting, abdominal pain, diarrhea, constipation, melena. : See HPI Musculoskeletal: Denies weakness, joint pain or bony pain. Skin: Denies rash, skin lesions, or other. Neurologic: Denies weakness, headache, numbness, change in speech, confusion, seizures, incoordination. Psychiatric: No concerning psychosocial issues. 12-point review of systems is negative except for those stated above. Patient History <JOSE Paez - Last Filed: 11/10/20 15:39> Medical History (Updated 11/10/20 @ 15:31 by JOSE Paez) Actinic keratosis Anterior spinal artery compression syndromes, cervical region CAD (coronary artery disease) (~2001) Cervical spinal stenosis Chronic seasonal allergic rhinitis COPD (chronic obstructive pulmonary disease) (~2009) Depression (~2015) Diarrhea Eczema Encounter for routine history and physical examination Enlarged prostate Glaucoma Graves disease (~2004) Gum disease Hearing loss History of bronchitis History of migraine Hyperlipidemia Hypertension (~2005) Left ureteral stone Obesity (BMI 30-39.9) Obstructive sleep apnea Ocular myasthenia gravis Thyroid nodule (~2016) Vascular dementia Vision loss (~1945) Surgical History (Updated 10/06/19 @ 15:39 by Annabelle Hanks) Anesthesia History of blepharoplasty (~04/23/17) History of cataract removal with insertion of prosthetic lens (~2015) History of coronary artery stent placement (~2004) History of eye surgery (~01/03/15) History of placement of stent in anterior descending branch of left coronary artery (~2009) History of strabismus surgery (~2002) History of total knee replacement (~09/24/18) Previous back surgery (~2005) Family History (Updated 10/06/19 @ 15:41 by Annabelle Hanks) Father Accident Mother History of heart disease Sister Cancer Social History marital status: household members: spouse lives independently: Yes caregiver/support person: Yes () housing: house other: gardening, working in his shop Smoking Status: Former smoker alcohol intake: current Smoking Status: Former smoker alcohol intake frequency: 0-2 drinks per day Substance Use Type: marijuana Exam <JOSE Paez - Last Filed: 11/10/20 15:39> Narrative Exam Narrative: General appearance: well developed, well nourished, in no acute distress. Head: normocephalic, atraumatic, no scalp lesions, non-tender. ENT: Hearing grossly intact. Airway patent. Neck/Thyroid: neck supple, full range of motion, no visible masses or meningeal signs. No JVD, non-tender without lymphadenopathy. Skin: no suspicious rashes, lesions over visible areas. Warm and dry and appropriate color for ethnicity. Heart: no clubbing, no cyanosis, no edema. S1 and S2 normal. RRR w/o murmurs, clicks, or bruits. Lungs: Breathing even and unlabored. No stridor. No accessory muscles used. Able to speak in full sentences. Chest: normal shape and expansion. Abdomen: non-obese, non-distended. Neurologic: alert and oriented. Cognitive exam, DOCK LOADER and PNS grossly intact on informal exam. Psych: good eye contact, normal affect. Initial Vital Signs Initial Vital Signs: Vital Signs Pulse Rate 91 H 11/10/20 11:58 Pulse Oximetry 94 11/10/20 11:58 Penis: no masses, no nodules, no swelling and no ulcerations Meatus: meatus normal Scrotum: no ecchymosis, erythematous (mild) bilaterally, no inguinal hernias, no ulcerations and no varicoceles Testes: no epidiymal tenderness, testicular swelling, no testicular tenderness and normal testicular lie <Bindu Nuno DO - Last Filed: 11/11/20 07:23> Initial Vital Signs Initial Vital Signs: Vital Signs Pulse Rate 91 H 11/10/20 11:58 Pulse Oximetry 94 11/10/20 11:58 Scores <[facility] - Last Filed: 11/10/20 15:39> GCS [place] coma scale eye opening: Spontaneous [place] coma scale verbal response: Orientated [place] coma scale motor response: Obey commands Shivam coma scale total score: 15 qSOFA Altered Mental Status (GCS <15): No Respiratory rate greater than/equal to 22: No Systolic blood pressure less than or equal to 100: No qSOFA Total: 0 0-1 Not High Risk 1-3 High risk Course <[facility] - Last Filed: 11/10/20 15:39> Orders Ordered: Discontinued Medications Cephalexin HCl (Cephalexin 250 Mg Capsule) 500 mg PO NOW ONE Stop: 11/10/20 15:25 Last Admin: 11/10/20 15:36 Dose: 500 mg Documented by: LULY Reevaluation(s) Reevaluation #1: Updated patient and significant other on lab results. Time: 13:10 Reevaluation #2: Updated patient and significant other on delayed ultrasound reading results. Ultrasound department called and was informed patient's reading should be red next by radiologist. Time: 13:55 Consultations Consultation #1: Dr. King at consulted with physical finding, labs, and US results. She recommended to treat patient with early scrotal cellulitis with Keflex 500 mg q.i.d. dose for 7-10 days and to have him follow-up with urologist locally for hydrocele if no trauma to scrotal/testicular region. It is not likely patient has pyocele according to physical exam and labs. Currently, surgery is not likely recommended for hydrocele. Time: 15:15 Vital Signs Vital signs: Vital Signs - 8 hr 11/10/20 11:58 11/10/20 11:59 11/10/20 12:02 Temperature 99.1 F Pulse Rate 91 H 84 90 Respiratory Rate 20 Blood Pressure 194/94 H 194/94 H Pulse Oximetry 94 96 95 11/10/20 12:30 11/10/20 12:31 11/10/20 13:00 Temperature Pulse Rate 73 73 69 Respiratory Rate Blood Pressure 144/77 H 152/68 H Pulse Oximetry 97 98 98 11/10/20 13:30 11/10/20 14:00 11/10/20 14:30 Temperature Pulse Rate 71 74 75 Respiratory Rate Blood Pressure 164/73 H 168/72 H 185/80 H Pulse Oximetry 98 97 98 11/10/20 15:00 Temperature Pulse Rate 77 Respiratory Rate Blood Pressure 163/77 H Pulse Oximetry 98 <Bindu Nuno DO - Last Filed: 11/11/20 07:23> Orders Ordered: Discontinued Medications Cephalexin HCl (Cephalexin 250 Mg Capsule) 500 mg PO NOW ONE Stop: 11/10/20 15:25 Last Admin: 11/10/20 15:36 Dose: 500 mg Documented by: LULY Vital Signs Vital signs: Vital Signs - 8 hr 11/10/20 11:58 11/10/20 11:59 11/10/20 12:02 Temperature 99.1 F Pulse Rate 91 H 84 90 Respiratory Rate 20 Blood Pressure 194/94 H 194/94 H Pulse Oximetry 94 96 95 11/10/20 12:30 11/10/20 12:31 11/10/20 13:00 Temperature Pulse Rate 73 73 69 Respiratory Rate Blood Pressure 144/77 H 152/68 H Pulse Oximetry 97 98 98 11/10/20 13:30 11/10/20 14:00 11/10/20 14:30 Temperature Pulse Rate 71 74 75 Respiratory Rate Blood Pressure 164/73 H 168/72 H 185/80 H Pulse Oximetry 98 97 98 11/10/20 15:00 Temperature Pulse Rate 77 Respiratory Rate Blood Pressure 163/77 H Pulse Oximetry 98 MDM - Male Genitourinary <JOSE Paez - Last Filed: 11/10/20 15:39> Differential Diagnosis Differential diagnosis: Likely epididymitis, prostatitis, inguinal hernia and other (testicular mass, testicular torsion, infection, heart failure, hydrocele) Medical Records Attestation: I reviewed the patient's medical records. Lab Data Attestation: I reviewed the patient's lab results. Result diagrams: 11/10/20 12:30 11/10/20 12:30 Labs: Lab Results 11/10/20 11/10/20 11/10/20 Range/Units 12:30 12:30 12:30 WBC 6.0 (4.5-11.0) X10^3/uL RBC 4.42 L (4.5-5.9) X10^6/uL Hgb 13.6 (13.5-17.5) g/dL Hct 40.9 L (41-53) % MCV 92.4 (80-100) fL MCH 30.8 (26-34) PG MCHC 33.3 (30-36) % RDW 14.3 (11.6-14.8) % Plt Count 234 (150-400) X10^3/uL Neut % (Auto) 68.8 (50-75) % Lymph % (Auto) 21.2 L (25-40) % Nolan % (Auto) 7.9 (3-14) % Eos % (Auto) 1.6 L (2-4) % Baso % (Auto) 0.5 (0-2) % Neut # (Auto) 4200 (3385-8356) /uL Lymph # (Auto) 1300 (3157-1084) /uL Nolan # (Auto) 500 (0-900) /uL Eos # (Auto) 100 (0-450) /uL Baso # (Auto) 0 (0-100) /uL Sodium 137 (137-145) mmol/L Potassium 4.2 (3.4-5.1) mmol/L Chloride 101 (98-107) mmol/L Carbon Dioxide 32 (22-32) mmol/L BUN 15 (9-20) mg/dL Creatinine 0.68 (0.66-1.25) mg/dL Estimated GFR > 60.0 (>60) mL/min BUN/Creatinine Ratio 22.1 H (6-22) Glucose 99 (80-110) mg/dL Lactate 1.1 (0.7-2.1) mmol/L Calcium 9.3 (8.4-10.2) mg/dL Urine Dip Bedside Urine Glucose Negative Bedside Urine Bilirubin - Negative Bedside Urine Ketone - Negative Urine Specific [place] 1.020 Bedside Urine Occult Blood - Negative Bedside Urine pH 6 Bedside Urine Protein - Negative Bedside Urine Urobilinogen - Negative Bedside Urine Nitrite - Negative Bedside Urine Leukocytes - Negative Esterase Imaging Data US Scrotum: Radiologist's Impression: [address] [id number] ReportSigned Patient: Aamir Wilkinson AMR#: [id number]: 5Acct:[id number]/Sex: 75 / MDate of Service: 11/10/20Loc: EDAccession Number: [id number] Procedure: US scrotum Ordering Provider: Mango Roach PROCEDURE: US SCROTUM INDICATIONS: SWELLING TO SCROTUM TECHNIQUE: Real-time scanning was performed of the scrotum and testicles, with image documentation. Color and pulse Doppler interrogation was performed of both testicles. COMPARISON: None. FINDINGS: Right: Testicle is normal in size at 5.5 x 3.3 x 2.6 cm, and homogenous in echotexture. Epididymis is normal in overall size and morphology. A simple epididymal cyst is present in the epididymal head measuring 5 x 3 mm. No hydrocele or varicoceles. Overlying scrotal skin is normal in thickness. There is scrotal wall thickening with mildly increased vascularity. A large fluid collection with debris and internal septa is present measuring 8.4 x 6.5 x 5.4 cm (estimated volume 155 cc). Left: Testicle is normal in size at 4.5 x 2.7 x 2.9 cm, and homogeneous in echotexture. Epididymis is normal in overall size and morphology. A simple epididymal head cyst is present measuring 5 x 4 mm. No hydrocele or varicoceles. Overlying scrotal skin is normal in thickness. Doppler: Color and pulse Doppler demonstrate normal and symmetric arterial flow in both testicles. The resistive index of the right scrotum is mildly elevated at 0.77. IMPRESSION: 1. Both testicles demonstrate normal size and homogeneous echotexture. There are both arterial and venous flows on Doppler ultrasound. 2. The right testicle demonstrates mildly increased resistive index (0.77; normal less than 0.75). The clinical significance of the finding is indeterminate. If there is clinical suspicion for intermittent torsion, repeat exam is suggested. 3. A large fluid collection in the right scrotum with internal echo and septa. Differential diagnosis include hydrocele, pyocele or hematocele. 4. No findings to suggest epididymitis. Small simple epididymal cysts are present bilaterally. 5. There is right scrotal wall thickening with mildly increased vascularity, suggesting scrotal cellulitis. Dictated by: Ronen Nichols M.D. on 11/10/2020 at 14:21 Approved by: Ronen Nichols M.D. on 11/10/2020 at 14:48 MDM Narrative Medical decision making narrative: This is a 75 year male who presents to ED with nontraumatic, nonpainful scrotal/testicular swelling for at least 2 weeks. Patient does not endorses constitutional symptoms, patient does not appears to be toxic. Patient does not have history of heart failures and no swelling to bilateral lower extremities. His lung sounds are clear to auscultate. Labs showing no leukocytosis with WBC of 6.0. Normal kidney function test with creatinine of 0.68 and normal EGFR. Normal lactate of 1.1. Urine test does not indicate infection. Ultrasound test shows both testicle in normal size and homogeneous echotexture with good arterial and venous blood flow on Doppler test. Right scrotal wall thickening with mild increased vascularity. A large fluid collection with the breeze and internal septa is present measuring 8.4 x 6.5 x 5.4 cm estimated volume 155 cc in right scrotum. Bilateral a simple epididymal head cyst present measuring 5.3, 5.4 mm. Differential diagnosis include hydrocele, pyocele or hematocele. Given patient's physical exam and HPI not consistent with pyocele or hematocele, it is likely patient has hydrocele. Dr. King at urology consulted and she recommended to treat patient for scrotal cellulitis per ultrasound test result. She also recommended to have patient follow-up with urologist locally. Findings were discussed with patient and significant other and they both verbalized understanding in agreement with the treatment plan. Patient was medicated with 1st dose of Keflex in ED and rest of 7 day q.i.d. course transmitted to [facility]. Return precautions were discussed with patient and spouse. <Bindu Nuno, - Last Filed: 11/11/20 07:23> Lab Data Labs: Lab Results 11/10/20 11/10/20 11/10/20 Range/Units 12:30 12:30 12:30 WBC 6.0 (4.5-11.0) X10^3/uL RBC 4.42 L (4.5-5.9) X10^6/uL Hgb 13.6 (13.5-17.5) g/dL Hct 40.9 L (41-53) % MCV 92.4 (80-100) fL MCH 30.8 (26-34) PG MCHC 33.3 (30-36) % RDW 14.3 (11.6-14.8) % Plt Count 234 (150-400) X10^3/uL Neut % (Auto) 68.8 (50-75) % Lymph % (Auto) 21.2 L (25-40) % Nolan % (Auto) 7.9 (3-14) % Eos % (Auto) 1.6 L (2-4) % Baso % (Auto) 0.5 (0-2) % Neut # (Auto) 4200 (7095-8462) /uL Lymph # (Auto) 1300 (1284-2266) /uL Nolan # (Auto) 500 (0-900) /uL Eos # (Auto) 100 (0-450) /uL Baso # (Auto) 0 (0-100) /uL Sodium 137 (137-145) mmol/L Potassium 4.2 (3.4-5.1) mmol/L Chloride 101 (98-107) mmol/L Carbon Dioxide 32 (22-32) mmol/L BUN 15 (9-20) mg/dL Creatinine 0.68 (0.66-1.25) mg/dL Estimated GFR > 60.0 (>60) mL/min BUN/Creatinine Ratio 22.1 H (6-22) Glucose 99 (80-110) mg/dL Lactate 1.1 (0.7-2.1) mmol/L Calcium 9.3 (8.4-10.2) mg/dL Urine Dip Bedside Urine Glucose Negative Bedside Urine Bilirubin - Negative Bedside Urine Ketone - Negative Urine Specific [place] 1.020 Bedside Urine Occult Blood - Negative Bedside Urine pH 6 Bedside Urine Protein - Negative Bedside Urine Urobilinogen - Negative Bedside Urine Nitrite - Negative Bedside Urine Leukocytes - Negative Esterase Discharge Plan Departure Patient Disposition: Home Clinical Impression: Hydrocele, right, Cellulitis, scrotum Instructions: DI for Cellulitis -- Adult, DI for Hydrocele-Adult Activity Restrictions/Additional Instructions: You have been diagnosed with [hydrocele in right scrotum and likely scrotal cellulitis according to ultrasound test. ]. What to do: *Take your medications as directed. Please take Keflex 500 mg 4 times a day up to 7 days. The medication has been transmitted to [facility]. *Follow up with your primary care provider and Dr. Busby (urologist) in 2-3 days, call for an appointment. Let them know you were seen in the ED and that we asked you to be seen in follow up. *Return to ED if you have any new, worsening, or concerning symptoms, such as [worsening pain, swelling, warmth in scrotal region, chest pain, breathing difficulty, unable to tolerate fluids, fever, or any acute concerns]. Prescriptions: New cephalexin [Keflex] 500 mg capsule 500 mg PO QID 7 Days Qty: 28 RF: 0 No Action amlodipine 5 mg tablet 5 mg PO DAILY Qty: 90 RF: 3 lisinopril 5 mg tablet 5 mg PO DAILY Qty: 90 RF: 3 ibuprofen 800 mg tablet 800 mg PO DAILY Qty: 90 RF: 1 albuterol sulfate 90 mcg/actuation HFA aerosol inhaler 2 puff INHALATION Q6H PRN (Reason: shortness of breath or wheezing) Qty: 18 RF: 11 vitamin B complex [B Complex-Vitamin B12] Tablet 1 tab PO DAILY RF: 0 loratadine [Claritin] 10 mg tablet 10 mg PO DAILY RF: 0 donepezil 10 mg tablet 10 mg PO BEDTIME Qty: 90 RF: 3 methimazole 5 mg tablet 5 mg PO DAILY Qty: 90 RF: 0 clotrimazole-betamethasone 1-0.05 % cream 1 applictn TOP BID 14 Days Qty: 45 RF: 1 citalopram 40 mg tablet 40 mg PO DAILY Qty: 90 RF: 3 memantine 10 mg tablet 10 mg PO BID Qty: 180 RF: 3 rosuvastatin 5 mg tablet 5 mg PO DAILY Qty: 90 RF: 3 Spiriva with HandiHaler 18 mcg capsule, w/inhalation device 1 cap Inhalation DAILY Qty: 90 RF: 3 valacyclovir 1 gram tablet 1,000 mg PO Q12H PRN (Reason: Outbreak) Qty: 10 RF: 5 sildenafil 100 mg tablet 100 mg PO DAILY PRN (Reason: Erectile Dysfunction) Qty: 10 RF: 5 aspirin 81 mg Tablet,Delayed Release (Dr/Ec) 81 mg PO DAILY RF: 0 Referrals: Keena Busby MD [Physician] - Jm Tirado DO [Primary Care Provider] - <Bindu Nuno DO - Last Filed: 11/11/20 07:23> Cosign ED Attending Alisha Attestation: I was immediately available in the department for consultation. Documentation has been reviewed. I agree with assessment and plan.
[2020-11-10 12:38] LABS: Add Manual Diff / Slide Review NO; Basophils Absolute Auto 0 /uL (0-100); Basophils Percent Auto 0.5 % (0-2); Eosinophils Absolute Auto 100 /uL (0-450); Eosinophils Percent Auto 1.6 % (2-4); Hematocrit 40.9 % (41-53); Hemoglobin 13.6 g/dL (13.5-17.5); Lymphocytes Absolute Auto 1300 /uL (1100-4500); Lymphocytes Percent Auto 21.2 % (25-40); Mean Corpuscular HGB Conc 33.3 % (30-36); Mean Corpuscular Hemoglobin 30.8 PG (26-34); Mean Corpuscular Volume 92.4 fL (80-100); Monocytes Absolute Auto 500 /uL (0-900); Monocytes Percent Auto 7.9 % (3-14); Neutrophils Absolute Auto 4200 /uL (1500-7000); Neutrophils Percent Auto 68.8 % (50-75); Platelet Count 234 X10^3/uL (150-400); Red Blood Cell Count 4.42 X10^6/uL (4.5-5.9); Red Cell Distribution Width 14.3 % (11.6-14.8)
[2020-11-10 12:48] LABS: Lactate (Lactic Acid) 1.1 mmol/L (0.7-2.1)
[2020-11-10 12:49] LABS: BUN Creatinine Ratio 22.1 (6-22); Blood Urea Nitrogen 15 mg/dL (9-20); Calcium 9.3 mg/dL (8.4-10.2); Carbon Dioxide 32 mmol/L (22-32); Chloride 101 mmol/L (98-107); Estimated Glomerular Filt Rate > 60.0 mL/min (>60); Glucose 99 mg/dL (80-110); HEMOLYSIS 16 (0-50); Potassium 4.2 mmol/L (3.4-5.1); Sodium 137 mmol/L (137-145)
[2020-11-10] MEDS: cephALEXin 250 MG CAPSULE 500 MG PO (15:36)
== END 2020-11-10 15:53 | disposition home or self-care (01) ==
PROVIDERS: Emergency Provider Nurse Practitioner Family; PCP Family Medicine
DX: N43.3 Hydrocele, unspecified (principal); N49.2 Inflammatory disorders of scrotum; I11.0 Hypertensive heart disease with heart failure; I25.10 Atherosclerotic heart disease of native coronary artery without angina pectoris; Z95.5 Presence of coronary angioplasty implant and graft; N40.0 Benign prostatic hyperplasia without lower urinary tract symptoms; E05.90 Thyrotoxicosis, unspecified without thyrotoxic crisis or storm; F03.90 Unspecified dementia, unspecified severity, without behavioral disturbance, psychotic disturbance, mood disturbance, and anxiety; E78.5 Hyperlipidemia, unspecified
CPT/HCPCS: 36415; 76870; 80048; 81003; 83605; 85025; 99283; 99284

== ENCOUNTER → 2020-11-15 14:45 | Outpatient (CLI) | payer MEDICARE, OTHER, SELFPAY ==
[2020-08-04 11:43] VITALS: BMI 29.5
--- NOTE | 2020-11-15 14:47 | DI.RAD.S_ITS ---
PROCEDURE: XR KUB INDICATIONS: Hydrocele TECHNIQUE: One view of the abdomen acquired. COMPARISON: None. FINDINGS: Surgical changes and devices: None. Bowel: Bowel gas pattern is normal. Soft tissues: No suspicious abdominal calcifications. Visualized solid organ contours appear normal in size. Vascular calcifications are noted overlying the left upper quadrant. Bones: No suspicious bony lesions. IMPRESSION: No obstruction. Dictated by: Mellisa Francois M.D. on 11/15/2020 at 16:03 Approved by: Mellisa Francois M.D. on 11/15/2020 at 16:03
[2020-11-15 16:42] LABS: Prostate Specific Antigen 0.459 ng/mL (0.10-4.00)
== END ==
PROVIDERS: PCP Family Medicine; Referring Provider Specialist; Visit Provider Specialist
DX: N43.3 Hydrocele, unspecified (principal); N40.0 Benign prostatic hyperplasia without lower urinary tract symptoms
CPT/HCPCS: 36415; 74018; 84153

== ENCOUNTER → 2020-12-20 13:22 | Outpatient (CLI) | payer MEDICARE, OTHER, SELFPAY ==
[2020-08-04 11:43] VITALS: BMI 29.5
[2020-12-20 14:07] LABS: COVID19 -Nasal RAPID Negative (Negative)
== END ==
PROVIDERS: PCP Family Medicine; Visit Provider Specialist
DX: Z20.822 Contact with and (suspected) exposure to COVID-19 (principal)
CPT/HCPCS: 87635; C9803

== ENCOUNTER 2020-12-22 08:05 | Day surgery (SDC) | payer MEDICARE, OTHER, SELFPAY ==
[2020-08-04 11:43] VITALS: BMI 29.5
--- NOTE | 2020-12-22 | PATH_ITS ---
[facility] Accession Number: [id number] . 01 Material submitted: . testis - RIGHT HYDROCELE SAC . 02 Diagnosis: Right Hydrocele Sac, Excision: Consistent with hydrocele. No evidence of neoplasm. [facility] 12/25/2020 1114 Local . 02 Electronically signed: . Edouard Doty MD, PhD, Pathologist NPI- [id number] . 01 Gross description: . The specimen is received in formalin, labeled hydrocele sac, and consists of three pink-purple, focally hemorrhagic, fibromembranous fragments of soft tissue measuring 8.0 x 7.0 x 2.0 cm in aggregate. Signal Operator sections are submitted in cassettes A1-A2. ([id number]) /[facility] 12/23/2020 1628 Local . 02 Pathologist provided ICD-10: N43.3 . 02 CPT . 952184 Performed at: 01 [facility] [address] [place] [address], [place], [place] [id number] MD Ruslan Ruggiero MD Phone: [phone] Performed at: 02 [facility] [address] [place], [place] [id number] MD Celi Rivera MD Phone: [phone]
[2020-12-22 08:36] VITALS: BP 127/70; PULSE 64; RESP 16; TEMP 37.1; O2SAT 98; BMI 30.4
--- NOTE | 2020-12-22 08:46 | P.OP_ITS ---
Operative Date/Time/Diagnoses Date of procedure: 12/22/20 Time of procedure: 10:24 Pre-op diagnosis: Painful hydrocele Post-op diagnosis: same Procedure & Clinicians Procedure: Right hydrocelectomy Same procedure as scheduled: Yes Indications: 1. Right hydrocele 2. Painful right scrotal contents Surgeon: Keena Busby Click Yes if Unassisted: Yes Anesthesia Type: General and Local (1.33% Exparel) Operative Notes Findings: The tunica vaginalis was thickened to as much as 4 mm with chronic inflammatory changes. The hydrocele fluid was hemorrhagic. No clot. No actively bleeding vascularity or neoplasm found. Hydrocele sac was excised and submitted to pathology for routine gross and microscopic examination. Closure Type: primary Specimen(s): other (Right hydrocele sac) Applied: drain(s) (10. Syriac Marco drain) Estimated Blood Loss (mL): 5 Blood products transfused: none Tourniquet time (min): 0 Procedure in detail: Patient was positioned supine was administered general anesthesia. The lower abdomen genitalia and groin were then prepped and draped in sterile fashion. Solution of 0.5% Marcaine with epinephrine was then used to infiltrate the midline scrotal raphae. The cautery pen was then used to divide the skin of the midline raphe Fe and the dartos fascia. The surface of the tunica vaginalis was then encountered. Somewhat difficult continued cautery and blunt dissection was required to find the appropriate plane between the tunic vaginalis in the chronically inflamed adhesions to the dartos fascia. The contents to the tunica vaginalis were then delivered from right hemiscrotum into the operative field. A vertical midline incision was then made with the cautery pen. Hemorrhagic, blood-tinged fluid was then drained in suction from within. The inner aspect of the tunica vaginalis was also chronically inflamed. No evidence of active bleeding or neoplasm. The hydrocele sac was excised and submitted to pathology for routine gross and microscopic examination the edges were cauterized for hemostasis. The right testis was then repositioned in the right hemiscrotum anatomically and was secured in place with interrupted 2 0 Monocryl inferiorly medially and laterally. The skin and subcutaneous tissue were then infiltrated the right inferolateral aspect of the scrotal wall and a 10 Syriac Marco drain was then passed from in to out. It was secured at the level of skin with 2-0 silk. Excess drain was excised and discarded and the drain was positioned in the right hemiscrotum. The dartos fashion subcutaneous layer were then infiltrated with Exparel. The midline scrotal raphe was then reapproximated using a running vertical mattress of 2-0 Monocryl. The scrotal skin was then reapproximated with a running horizontal mattress of 4-0 Monocryl. The skin surfaces were cleaned and dried. Antibiotic ointment was applied to the midline incision and then dry sterile fluffs were applied to the scrotum. The patient was then fitted with a athletic supporter. The patient was then awakened, transferred to [facility], and transferred recovery room. Complications: none Post-operative Condition: stable Disposition: PACU Plan for aftercare: [facility]
--- NOTE | 2020-12-22 08:46 | PM.PREOP ---
Pre-operative Note Interval Note History & Physical reviewed/Exam performed by Physician: Yes Changes to H&P: No
[2020-12-22] MEDS: LACTATED RINGERS 1,000 ML 42 ML IV (08:47)
[2020-12-22] MEDS: CEFAZOLIN 2 GM/100 ML FROZ.PIGGY IV (09:06)
[2020-12-22] MEDS: ACETAMINOPHEN IV 1,000 MG/100 ML VIAL 400 MG IV (09:25)
--- NOTE | 2020-12-22 09:30 | SUR.OPER ---
Supine on padded OR bed, head on pillow, arms secured on padded arm boards at <90 degrees abduction, legs uncrossed, safety belt at abdomen , tape over blanket over lower legs.
[2020-12-22] MEDS: BUPIVACAINE LIPOSOME 266 MG/20 ML VIAL INJ (09:35)
[2020-12-22] MEDS: BUPIVACAINE 0.25% W/ EPI (PF) 10 ML VIAL 20 ML INJ (09:36)
[2020-12-22] MEDS: BACITRACIN OINT 0.9 GM PCKT 1 APPLIC TOP (10:11)
[2020-12-22 10:23] VITALS: BP 137/69; PULSE 58; RESP 13; TEMP 36.2; O2SAT 93
[2020-12-22 10:29] VITALS: BP 132/68; PULSE 60; RESP 14; O2SAT 91
[2020-12-22 10:33] VITALS: BP 140/73; PULSE 64; RESP 17; O2SAT 91
[2020-12-22 10:38] VITALS: BP 127/64; PULSE 63; RESP 14; O2SAT 94
[2020-12-22 11:12] VITALS: BP 137/75; PULSE 63; RESP 16; TEMP 36.2; O2SAT 96
--- NOTE | 2020-12-22 11:37 | SUR.PHASEII ---
demonstrated to how to empty drain and gave detailed instructions regarding recording of output. V/U. Ice pack provided at discharge. V/U. Home in stable condition with .
== END 2020-12-22 11:37 | disposition home or self-care (01) ==
PROVIDERS: PCP Family Medicine; Referring Provider Family Medicine; Visit Provider Specialist
PROC: (CPT 55040; principal; 2020-12-22 09:15)
DX: N43.3 Hydrocele, unspecified (principal); F03.90 Unspecified dementia, unspecified severity, without behavioral disturbance, psychotic disturbance, mood disturbance, and anxiety; G47.33 Obstructive sleep apnea (adult) (pediatric); J44.9 Chronic obstructive pulmonary disease, unspecified; I25.10 Atherosclerotic heart disease of native coronary artery without angina pectoris; N18.9 Chronic kidney disease, unspecified; I12.9 Hypertensive chronic kidney disease with stage 1 through stage 4 chronic kidney disease, or unspecified chronic kidney disease; N40.1 Benign prostatic hyperplasia with lower urinary tract symptoms; N49.1 Inflammatory disorders of spermatic cord, tunica vaginalis and vas deferens
CPT/HCPCS: 55040; C9290; J0131; J0690; J1100; J2405; J2704; J3010

== ENCOUNTER → 2021-04-09 09:21 | Outpatient (CLI) | payer MEDICARE, OTHER, SELFPAY ==
[2021-02-08 11:32] VITALS: BMI 29.5
[2021-04-09 10:27] LABS: Add Manual Diff / Slide Review NO; Basophils Absolute Auto 0 /uL (0-100); Basophils Percent Auto 0.4 % (0-2); Eosinophils Absolute Auto 100 /uL (0-450); Eosinophils Percent Auto 2.4 % (2-4); Hematocrit 42.3 % (41-53); Hemoglobin 14.1 g/dL (13.5-17.5); Lymphocytes Absolute Auto 1600 /uL (1100-4500); Mean Corpuscular HGB Conc 33.4 % (30-36); Mean Corpuscular Hemoglobin 30.6 PG (26-34); Mean Corpuscular Volume 91.5 fL (80-100); Monocytes Absolute Auto 300 /uL (0-900); Monocytes Percent Auto 6.7 % (3-14); Neutrophils Absolute Auto 3000 /uL (1500-7000); Neutrophils Percent Auto 59.5 % (50-75); Platelet Count 231 X10^3/uL (150-400); Red Blood Cell Count 4.62 X10^6/uL (4.5-5.9); Red Cell Distribution Width 14.4 % (11.6-14.8); White Blood Cell Count 5.1 X10^3/uL (4.5-11.0)
[2021-04-09 10:35] LABS: Alanine Aminotransferase 17 IU/L (<50); Albumin 4.3 g/dL (3.5-5.0); Albumin Globulin Ratio 1.3 (1.0-2.8); Alkaline Phosphatase 56 U/L (38-126); Aspartate Aminotransferase 28 IU/L (17-59); BUN Creatinine Ratio 19.2 (6-22); Bilirubin Total 0.5 mg/dL (0.2-1.3); Blood Urea Nitrogen 14 mg/dL (9-20); Calcium 9.7 mg/dL (8.4-10.2); Carbon Dioxide 29 mmol/L (22-32); Chloride 103 mmol/L (98-107); Cholesterol 151 mg/dL (140-199); Estimated Glomerular Filt Rate > 60.0 mL/min (>60); Globulin 3.3 g/dL (1.7-4.1); Glucose 96 mg/dL (80-110); HDL Cholesterol 46 mg/dL (40-60); HEMOLYSIS < 15 (0-50); LDL Cholesterol Calculated 85 mg/dL (<100); Potassium 4.3 mmol/L (3.4-5.1); Sodium 137 mmol/L (137-145); Total Protein 7.6 g/dL (6.3-8.2); Triglycerides 100 mg/dL (35-150)
[2021-04-09 11:00] LABS: Prostate Specific Antigen Scrn 0.817 ng/mL (0.1-4.0)
[2021-04-09 11:19] LABS: Free T3, Triiodothyronine Free 3.24 pg/mL (2.77-5.27); Free T4, Direct Thyroxine 0.83 ng/dL (0.78-2.19)
[2021-04-09 11:33] LABS: Thyroid Stimulating Hormone 3.37 uIU/mL (0.47-4.68)
== END ==
PROVIDERS: PCP Family Medicine; Referring Provider Family Medicine; Visit Provider Family Medicine
DX: E04.1 Nontoxic single thyroid nodule (principal); E78.5 Hyperlipidemia, unspecified; Z12.5 Encounter for screening for malignant neoplasm of prostate; I10 Essential (primary) hypertension; Z12.11 Encounter for screening for malignant neoplasm of colon
CPT/HCPCS: 36415; 80053; 80061; 84439; 84443; 84481; 85025; G0103

== ENCOUNTER → 2021-05-14 15:11 | Outpatient (CLI) | payer MEDICARE, OTHER, SELFPAY ==
[2021-02-08 11:32] VITALS: BMI 29.5
[2021-05-15 09:17] LABS: Fecal Immunochemical Test Negative (Negative)
== END ==
PROVIDERS: PCP Family Medicine; Referring Provider Family Medicine; Visit Provider Family Medicine
DX: Z12.11 Encounter for screening for malignant neoplasm of colon (principal)
CPT/HCPCS: 82274

== ENCOUNTER → 2021-08-01 12:04 | Outpatient (CLI) | payer MEDICARE, OTHER, SELFPAY ==
[2021-02-08 11:32] VITALS: BMI 29.5
[2021-08-01 14:33] LABS: Prostate Specific Antigen 0.476 ng/mL (0.10-4.00)
== END ==
PROVIDERS: PCP Family Medicine; Referring Provider Specialist; Visit Provider Specialist
DX: N40.1 Benign prostatic hyperplasia with lower urinary tract symptoms (principal); N13.8 Other obstructive and reflux uropathy
CPT/HCPCS: 36415; 84153

== ENCOUNTER → 2021-10-11 09:38 | Outpatient (CLI) | payer MEDICARE, OTHER, SELFPAY ==
[2021-02-08 11:32] VITALS: BMI 29.5
[2021-10-11 11:06] LABS: Add Manual Diff / Slide Review NO; Basophils Absolute Auto 0 /uL (0-100); Basophils Percent Auto 0.3 % (0-2); Eosinophils Absolute Auto 200 /uL (0-450); Eosinophils Percent Auto 3.4 % (2-4); Hematocrit 41.1 % (41-53); Hemoglobin 13.4 g/dL (13.5-17.5); Lymphocytes Absolute Auto 1300 /uL (1100-4500); Mean Corpuscular HGB Conc 32.7 % (30-36); Mean Corpuscular Hemoglobin 28.9 PG (26-34); Mean Corpuscular Volume 88.4 fL (80-100); Monocytes Absolute Auto 400 /uL (0-900); Monocytes Percent Auto 5.6 % (3-14); Neutrophils Absolute Auto 4700 /uL (1500-7000); Neutrophils Percent Auto 70.7 % (50-75); Platelet Count 269 X10^3/uL (150-400); Red Blood Cell Count 4.64 X10^6/uL (4.5-5.9); Red Cell Distribution Width 13.8 % (11.6-14.8); White Blood Cell Count 6.6 X10^3/uL (4.5-11.0)
[2021-10-11 12:48] LABS: Alanine Aminotransferase 12 IU/L (<50); Albumin 4.3 g/dL (3.5-5.0); Albumin Globulin Ratio 1.4 (1.0-2.8); Alkaline Phosphatase 65 U/L (38-126); Aspartate Aminotransferase 21 IU/L (17-59); BUN Creatinine Ratio 19.4 (6-22); Bilirubin Total 0.5 mg/dL (0.2-1.3); Blood Urea Nitrogen 14 mg/dL (9-20); Calcium 9.7 mg/dL (8.4-10.2); Carbon Dioxide 27 mmol/L (22-32); Chloride 102 mmol/L (98-107); Cholesterol 128 mg/dL (140-199); Estimated Glomerular Filt Rate > 60.0 mL/min (>60); Glucose 86 mg/dL (80-110); HDL Cholesterol 42 mg/dL (40-60); HEMOLYSIS < 15 (0-50); LDL Cholesterol Calculated 71 mg/dL (<100); Potassium 4.4 mmol/L (3.4-5.1); Sodium 139 mmol/L (137-145); Total Protein 7.3 g/dL (6.3-8.2); Triglycerides 73 mg/dL (35-150)
== END ==
PROVIDERS: PCP Family Medicine; Referring Provider Family Medicine; Visit Provider Family Medicine
DX: E78.5 Hyperlipidemia, unspecified (principal); I10 Essential (primary) hypertension
CPT/HCPCS: 36415; 80053; 80061; 85025

== ENCOUNTER 2021-10-16 13:26 | Emergency (ER) | payer MEDICARE, OTHER, SELFPAY ==
[2021-02-08 11:32] VITALS: BMI 29.5
[2021-10-16] VITALS (13 sets, daily range): BP systolic 104–166; BP diastolic 54–97; PULSE 65–89; RESP 20–27; TEMP 36.5; O2SAT 90–96; BMI 27.3
--- NOTE | 2021-10-16 13:44 | DI.RAD.S_ITS ---
PROCEDURE: XR CHEST 1V INDICATIONS: chest pain TECHNIQUE: One view of the chest was acquired. COMPARISON: [facility], , CHEST 2 VIEW, 03/31/2017, 17:09. FINDINGS: Surgical changes and devices: None. Lungs and pleura: Lungs are clear. No pleural effusions or pneumothorax. Mediastinum: Mediastinal contours appear normal. Heart size is normal. Bones and chest wall: No suspicious bony lesions. Overlying soft tissues appear unremarkable. IMPRESSION: No acute process. Dictated by: Myra Abarca M.D. on 10/16/2021 at 14:16 Approved by: Myra Abarca M.D. on 10/16/2021 at 14:19
--- NOTE | 2021-10-16 13:49 | ED.GENADULT ---
HPI - General Adult General Chief complaint: Syncope Stated complaint: Syncopal episode Time Seen by Provider: 10/16/21 13:29 Source: family and EMS Mode of arrival: EMS Limitations: other (Dementia) History of Present Illness HPI narrative: Patient is a 76-year-old male. Does have history of dementia. Was standing in his bathroom with his . She was shaving him. She states he had an episode where he seem to the lose consciousness. He started to lean to 1 side. He did not fall. Did not hit his head. It does appear that he lost consciousness. He did vomit during this time. Was unconscious for short period of time but then woke up and seemed to be relatively normal afterwards. EMS was called. Was reported that he had positive orthostatic blood pressures per EMS. He also had 1 further episode of vomiting EN route. Patient is unable to provide any HPI. Does not appear to be in any distress. Related Data Home Medications Medication Instructions Recorded Confirmed aspirin 81 mg tablet,delayed 81 mg PO DAILY 09/14/18 08/07/21 release loratadine 10 mg tablet (Claritin) 10 mg PO DAILY 08/31/20 08/07/21 vitamin B complex (B 1 tab PO DAILY 08/31/20 08/07/21 Complex-Vitamin B12) Previous Rx's Medication Instructions Recorded rosuvastatin 5 mg tablet 5 mg PO DAILY #90 tab 01/26/20 sildenafil 100 mg tablet 100 mg PO DAILY PRN #10 tab 01/26/20 clotrimazole-betamethasone 1 1 applictn TOP BID 14 Days #45 gram 09/22/20 %-0.05 % topical cream albuterol sulfate 90 mcg/actuation 2 puff INHALATION Q6H PRN #18 gram 01/09/21 aerosol inhaler alfuzosin 10 mg tablet,extended 10 mg PO .hs #90 tab 02/08/21 release 24 hr memantine 10 mg tablet 10 mg PO BID #180 tab 04/05/21 amlodipine 5 mg tablet 5 mg PO DAILY #90 tab 04/16/21 lisinopril 5 mg tablet 5 mg PO DAILY #90 tab 05/15/21 gabapentin 100 mg capsule 300 mg PO TID #240 cap 05/23/21 donepezil 10 mg tablet See Rx Instructions .ROUTE 06/04/21 .COMPLEX #90 tab Disabled Parking Permit #1 ea 06/20/21 methimazole 5 mg tablet See Rx Instructions .ROUTE 08/09/21 .COMPLEX #90 tab tiotropium bromide 18 mcg capsule See Rx Instructions .ROUTE 08/09/21 with inhalation device (Spiriva .COMPLEX #90 capsule with HandiHaler) citalopram 40 mg tablet See Rx Instructions .ROUTE 08/28/21 .COMPLEX #90 tab Allergies Allergy/AdvReac Type Severity Reaction Status Date / Time ezetimibe Allergy Mild Joint/Muscle Verified 08/07/21 14:06 Pain atorvastatin AdvReac Mild Joint/Muscle Verified 08/07/21 14:06 Pain simvastatin AdvReac Mild Joint/Muscle Verified 08/07/21 14:06 Pain Review of Systems Review of Systems Narrative: Provided by Gastrointestinal Gastrointestinal: Reports as per HPI and Reports system reviewed and no additional complaints, except as documented Musculoskeletal Musculoskeletal: Reports system reviewed and no additional complaints, except as documented Neurologic Neurologic: Reports system reviewed and no additional complaints, except as documented and Reports as per HPI Patient History Medical History Actinic keratosis Anterior spinal artery compression syndromes, cervical region BPH w urinary obs/LUTS CAD (coronary artery disease) (~2001) Cervical spinal stenosis Chest pain Chronic left-sided low back pain with left-sided sciatica Chronic seasonal allergic rhinitis COPD (chronic obstructive pulmonary disease) (~2009) Dementia Depression (~2015) Diarrhea Eczema Encounter for routine history and physical examination Enlarged prostate Exophthalmos of right eye Glaucoma Graves disease (~2004) Gum disease H/O nephrolithotomy with removal of calculi Hearing loss History of bronchitis History of migraine Hypercholesterolemia Hyperlipidemia Hypertension (~2005) Kidney stones Left knee pain Left ureteral stone Obesity (BMI 30-39.9) Obstructive sleep apnea Ocular myasthenia gravis Osteoarthritis Ptosis of eyelid, left Right hydrocele Screen for colon cancer Thyroid disease Thyroid nodule (~2016) Vascular dementia Vision loss (~1945) Surgical History Anesthesia H/O circumcision History of blepharoplasty (~04/23/17) History of cataract removal with insertion of prosthetic lens (~2015) History of coronary artery stent placement (~2004) History of eye surgery (~01/03/15) History of placement of stent in anterior descending branch of left coronary artery (~2009) History of strabismus surgery (~2002) History of total knee replacement (~09/24/18) Previous back surgery (~2005) Family History Father Accident Mother History of heart disease Sister Cancer Social History marital status: household members: spouse lives independently: Yes caregiver/support person: Yes () housing: house other: gardening, working in his shop Smoking Status: Former smoker alcohol intake: current caffeine: Yes Smoking Status: Former smoker alcohol intake frequency: 0-2 drinks per day Substance Use Type: does not use Exam Initial Vital Signs Initial Vital Signs: Vital Signs Temperature 97.7 F 10/16/21 13:28 Pulse Rate 65 10/16/21 13:28 Respiratory Rate 20 10/16/21 13:28 Blood Pressure 137/64 10/16/21 13:28 Pulse Oximetry 93 10/16/21 13:28 Const General: healthy appearing and comfortable HENMT Head: normal to inspection and normocephalic Resp Effort & Inspection: normal respiratory effort Auscultation: clear to auscultation bilaterally Cardio Rate: regular rate Rhythm: regular rhythm GI Palpation: soft Skin General: no rashes or lesions noted Neuro General: patient alert, patient awake and moves all extremities Extrem General: capillary refill normal Psych Appearance: grossly normal Course Orders Ordered: ED Orders 10/16/21 13:10 COVID19 -Nasal swab/Pre-Proc Stat Complete Blood Count AUTO DIFF Stat Comprehensive Metabolic Panel Stat Lipase Stat Magnesium Stat Troponin & CK Cardiac Panel Stat 10/16/21 13:44 XR chest 1V Stat Partial Thromboplastin Time Stat Prothrombin Time INR Stat EKG-12 Lead Stat Vital Signs Vital signs: Vital Signs - 8 hr 10/16/21 13:28 10/16/21 13:35 Temperature 97.7 F Pulse Rate 65 69 Respiratory Rate 20 Blood Pressure 137/64 137/64 Pulse Oximetry 93 90 L Medical Decision Making Lab Data Lab results reviewed: Yes I reviewed the patient's lab results. Result diagrams: 10/16/21 13:10 10/16/21 13:10 Labs: Lab Results 11/23/21 11/23/21 11/23/21 Range/Units 13:10 13:10 13:10 WBC 8.3 (4.5-11.0) X10^3/uL RBC 4.38 L (4.5-5.9) X10^6/uL Hgb 13.0 L (13.5-17.5) g/dL Hct 38.7 L (41-53) % MCV 88.2 (80-100) fL MCH 29.6 (26-34) PG MCHC 33.6 (30-36) % RDW 13.7 (11.6-14.8) % Plt Count 301 (150-400) X10^3/uL Neut % (Auto) 64.0 (50-75) % Lymph % (Auto) 22.8 L (25-40) % [place] % (Auto) 9.9 (3-14) % Eos % (Auto) 2.8 (2-4) % Baso % (Auto) 0.5 (0-2) % Neut # (Auto) 5300 (0854-1068) /uL Lymph # (Auto) 1900 (0171-5044) /uL [place] # (Auto) 800 (0-900) /uL Eos # (Auto) 200 (0-450) /uL Baso # (Auto) 0 (0-100) /uL PT (10.1-12.7) SECONDS INR (0.9-1.3) APTT (26.4-36.2) SECONDS Sodium 138 (137-145) mmol/L Potassium 3.6 (3.4-5.1) mmol/L Chloride 102 (98-107) mmol/L Carbon Dioxide 28 (22-32) mmol/L BUN 17 (9-20) mg/dL Creatinine 0.75 (0.66-1.25) mg/dL Estimated GFR > 60.0 (>60) mL/min BUN/Creatinine Ratio 22.7 H (6-22) Glucose 113 H (80-110) mg/dL Calcium 9.3 (8.4-10.2) mg/dL Magnesium 1.8 (1.6-2.3) mg/dL Total Bilirubin 0.4 (0.2-1.3) mg/dL AST 23 (17-59) IU/L ALT 13 (<50) IU/L Alkaline Phosphatase 60 (38-126) U/L Total Creatine Kinase 65 (55-170) U/L CK-MB (CK-2) TNP CK-MB (CK-2) Rel Index TNP Troponin I < 0.012 (0.01-0.034) ng/mL Total Protein 7.4 (6.3-8.2) g/dL Albumin 4.2 (3.5-5.0) g/dL Globulin 3.2 (1.7-4.1) g/dL Albumin/Globulin Ratio 1.3 (1.0-2.8) Lipase 50 (23-300) U/L SARS-CoV-2 (PCR) Negative (Negative) 10/16/21 Range/Units 15:46 WBC (4.5-11.0) X10^3/uL RBC (4.5-5.9) X10^6/uL Hgb (13.5-17.5) g/dL Hct (41-53) % MCV (80-100) fL MCH (26-34) PG MCHC (30-36) % RDW (11.6-14.8) % Plt Count (150-400) X10^3/uL Neut % (Auto) (50-75) % Lymph % (Auto) (25-40) % [place] % (Auto) (3-14) % Eos % (Auto) (2-4) % Baso % (Auto) (0-2) % Neut # (Auto) (4117-5978) /uL Lymph # (Auto) (2703-4410) /uL [place] # (Auto) (0-900) /uL Eos # (Auto) (0-450) /uL Baso # (Auto) (0-100) /uL PT 15.6 H (10.1-12.7) SECONDS INR 1.4 H (0.9-1.3) APTT 30 (26.4-36.2) SECONDS Sodium (137-145) mmol/L Potassium (3.4-5.1) mmol/L Chloride (98-107) mmol/L Carbon Dioxide (22-32) mmol/L BUN (9-20) mg/dL Creatinine (0.66-1.25) mg/dL Estimated GFR (>60) mL/min BUN/Creatinine Ratio (6-22) Glucose (80-110) mg/dL Calcium (8.4-10.2) mg/dL Magnesium (1.6-2.3) mg/dL Total Bilirubin (0.2-1.3) mg/dL AST (17-59) IU/L ALT (<50) IU/L Alkaline Phosphatase (38-126) U/L Total Creatine Kinase (55-170) U/L CK-MB (CK-2) CK-MB (CK-2) Rel Index Troponin I (0.01-0.034) ng/mL Total Protein (6.3-8.2) g/dL Albumin (3.5-5.0) g/dL Globulin (1.7-4.1) g/dL Albumin/Globulin Ratio (1.0-2.8) Lipase (23-300) U/L SARS-CoV-2 (PCR) (Negative) Point of Care Testing Glucose POC 114 Point of care testing: Point of Care Testing Glucose POC 114 Imaging Data Chest x-ray: Radiologist's Impression: [address] [address] XRay Report Signed Patient: Aamir Wilkinson MR#: [id number] : 1945 Acct:[id number] Age/Sex: 76 / M Date of Service: 10/16/21 Loc: ED Accession Number: [id number] ?? Procedure: XR chest 1V Ordering Provider: Sunil Kwon D.O. PROCEDURE:? XR CHEST 1V ? INDICATIONS:? chest pain ? TECHNIQUE:? One view of the chest was acquired.? ? COMPARISON:? [facility], , CHEST 2 VIEW, 03/31/2017, 17:09. ? FINDINGS:? ? Surgical changes and devices:? None.? ? Lungs and pleura:? Lungs are clear.? No pleural effusions or pneumothorax.? ? Mediastinum:? Mediastinal contours appear normal.? Heart size is normal.? ? Bones and chest wall:? No suspicious bony lesions.? Overlying soft tissues appear unremarkable.? ? IMPRESSION:? No acute process. ? ? Dictated by: Myra Abarca M.D. on 10/16/2021 at 14:16 ? ? Approved by: Myra Abarca M.D. on 10/16/2021 at 14:19? ECG Data Attestation: I personally reviewed and interpreted this ECG as follows: Interpretation: Sinus rhythm Ventricular rate of 67 Left bundle branch block Left axis deviation No ST T wave changes MDM Narrative Medical decision making narrative: Patient received fluids. He states that he feels well although this is in the setting of an individual who has dementia. Afebrile. Labs unremarkable. Was able to stand at bedside and walk and also tolerate oral intake. We will hold on further workup for now. Low suspicion for CVA. Low suspicion for TIA. Low suspicion for seizure. Low suspicion for ACS. was given return precautions and follow-up instructions. She expressed understanding and agreement. Discharge Plan Departure Patient Disposition: Home Clinical Impression: Syncope Instructions: DI for Syncope in Adults (Fainting) Activity Restrictions/Additional Instructions: He can continue to take all of his medications as directed. Keep his appointment with Dr. Evans that is already scheduled for tomorrow. Return to the emergency department for any new or worsening symptoms Prescriptions: No Action albuterol sulfate 90 mcg/actuation HFA aerosol inhaler 2 puff INHALATION Q6H PRN (Reason: shortness of breath or wheezing) Qty: 18 11RF amlodipine 5 mg tablet 5 mg PO DAILY Qty: 90 3RF lisinopril 5 mg tablet 5 mg PO DAILY Qty: 90 3RF donepezil 10 mg tablet See Rx Instructions .ROUTE .COMPLEX Qty: 90 2RF Dose Instruction: TAKE ONE TABLET BY MOUTH AT BEDTIME Rx Instructions: TAKE ONE TABLET BY MOUTH AT BEDTIME methimazole 5 mg tablet See Rx Instructions .ROUTE .COMPLEX Qty: 90 0RF Dose Instruction: TAKE ONE TABLET BY MOUTH ONCE DAILY Rx Instructions: TAKE ONE TABLET BY MOUTH ONCE DAILY Spiriva with HandiHaler 18 mcg capsule, w/inhalation device See Rx Instructions .ROUTE .COMPLEX Qty: 90 0RF Dose Instruction: PLACE 1 CAPSULE INTO INHALER AND INHALE DAILY Rx Instructions: PLACE 1 CAPSULE INTO INHALER AND INHALE DAILY citalopram 40 mg tablet See Rx Instructions .ROUTE .COMPLEX Qty: 90 1RF Dose Instruction: TAKE ONE TABLET BY MOUTH ONCE DAILY Rx Instructions: TAKE ONE TABLET BY MOUTH ONCE DAILY vitamin B complex [B Complex-Vitamin B12] Tablet 1 tab PO DAILY 0RF loratadine [Claritin] 10 mg tablet 10 mg PO DAILY 0RF clotrimazole-betamethasone 1-0.05 % cream 1 applictn TOP BID 14 Days Qty: 45 1RF memantine 10 mg tablet 10 mg PO BID Qty: 180 3RF rosuvastatin 5 mg tablet 5 mg PO DAILY Qty: 90 3RF sildenafil 100 mg tablet 100 mg PO DAILY PRN (Reason: Erectile Dysfunction) Qty: 10 5RF gabapentin 100 mg capsule 300 mg PO TID Qty: 240 1RF Rx Instructions: Start with 1 cap daily and increase every 3rd day up to 300mg TID (DME) Disabled Parking Permit See Rx Instructions .Route .MEDSUPPLY Qty: 1 0RF Rx Instructions: As directed aspirin 81 mg Tablet,Delayed Release (Dr/Ec) 81 mg PO DAILY 0RF alfuzosin 10 mg tablet extended release 24 hr 10 mg PO .hs Qty: 90 3RF Referrals: Jm Tirado DO [Primary Care Provider] -
[2021-10-16 13:52] LABS: Add Manual Diff / Slide Review NO; Basophils Absolute Auto 0 /uL (0-100); Basophils Percent Auto 0.5 % (0-2); Eosinophils Absolute Auto 200 /uL (0-450); Eosinophils Percent Auto 2.8 % (2-4); Hematocrit 38.7 % (41-53); Lymphocytes Absolute Auto 1900 /uL (1100-4500); Lymphocytes Percent Auto 22.8 % (25-40); Mean Corpuscular HGB Conc 33.6 % (30-36); Mean Corpuscular Hemoglobin 29.6 PG (26-34); Mean Corpuscular Volume 88.2 fL (80-100); Monocytes Absolute Auto 800 /uL (0-900); Monocytes Percent Auto 9.9 % (3-14); Neutrophils Absolute Auto 5300 /uL (1500-7000); Platelet Count 301 X10^3/uL (150-400); Red Blood Cell Count 4.38 X10^6/uL (4.5-5.9); Red Cell Distribution Width 13.7 % (11.6-14.8); White Blood Cell Count 8.3 X10^3/uL (4.5-11.0)
[2021-10-16 13:59] LABS: Alanine Aminotransferase 13 IU/L (<50); Albumin 4.2 g/dL (3.5-5.0); Albumin Globulin Ratio 1.3 (1.0-2.8); Alkaline Phosphatase 60 U/L (38-126); Aspartate Aminotransferase 23 IU/L (17-59); BUN Creatinine Ratio 22.7 (6-22); Bilirubin Total 0.4 mg/dL (0.2-1.3); Blood Urea Nitrogen 17 mg/dL (9-20); Calcium 9.3 mg/dL (8.4-10.2); Carbon Dioxide 28 mmol/L (22-32); Chloride 102 mmol/L (98-107); Creatine Kinase 65 U/L (55-170); Estimated Glomerular Filt Rate > 60.0 mL/min (>60); Globulin 3.2 g/dL (1.7-4.1); Glucose 113 mg/dL (80-110); HEMOLYSIS < 15 (0-50); Lipase 50 U/L (23-300); Magnesium 1.8 mg/dL (1.6-2.3); Potassium 3.6 mmol/L (3.4-5.1); Sodium 138 mmol/L (137-145); Total Protein 7.4 g/dL (6.3-8.2)
[2021-10-16 14:09] LABS: COVID19 -Nasal RAPID Negative (Negative)
[2021-10-16 14:10] LABS: Troponin I < 0.012 ng/mL (0.01-0.034)
[2021-10-16 16:07] LABS: INR 1.4 (0.9-1.3); Prothrombin Time 15.6 SECONDS (10.1-12.7)
[2021-10-16 16:09] LABS: PTT Partial Thromboplastin Tim 30 SECONDS (26.4-36.2)
== END 2021-10-16 17:13 | disposition home or self-care (01) ==
PROVIDERS: Emergency Provider Emergency Medicine; PCP Family Medicine
DX: R55 Syncope and collapse (principal); Z20.822 Contact with and (suspected) exposure to COVID-19
CPT/HCPCS: 36415; 71045; 80053; 82550; 83690; 83735; 84484; 85025; 85610; 85730; 87635; 93005; 99284; C9803

== ENCOUNTER → 2021-10-31 13:49 | Outpatient (CLI) | payer MEDICARE, OTHER, SELFPAY ==
[2021-02-08 11:32] VITALS: BMI 29.5
[2021-10-31 14:46] LABS: COVID19 -Nasal RAPID Negative (Negative)
== END ==
PROVIDERS: PCP Family Medicine; Referring Provider Physician Assistant; Visit Provider Physician Assistant
DX: Z20.822 Contact with and (suspected) exposure to COVID-19 (principal); R05.9 Cough, unspecified
CPT/HCPCS: 87635

== ENCOUNTER 2021-11-11 11:07 | Emergency (ER) | payer MEDICARE, OTHER, SELFPAY ==
[2021-02-08 11:32] VITALS: BMI 29.5
[2021-11-11 11:35] VITALS: BP 155/71; PULSE 82; RESP 18; TEMP 36.7; O2SAT 95; BMI 29.6
--- NOTE | 2021-11-11 11:51 | DI.RAD.S_ITS ---
PROCEDURE: XR ABDOMEN 1V INDICATIONS: ABD pain TECHNIQUE: One view of the abdomen acquired. COMPARISON: None. FINDINGS: Surgical changes and devices: None. Bowel: Bowel gas pattern is normal. Increased stool is seen throughout the bowel consistent with constipation. Soft tissues: No suspicious abdominal calcifications. Visualized solid organ contours appear normal in size. Bones: No suspicious bony lesions. The lumbar spine has degenerative changes. IMPRESSION: 1. No acute plain film abnormality. 2. Constipation. Dictated by: Norman Rao M.D. on 11/11/2021 at 12:18 Approved by: Norman Rao M.D. on 11/11/2021 at 12:21
--- NOTE | 2021-11-11 11:53 | ED_ITS ---
HPI - Back Pain/Injury General Chief Complaint: Back Pain/Injury Stated Complaint: pain lower back-incontinence Time Seen by Provider: 11/11/21 11:24 Source: patient and family Mode of arrival: Ambulatory History of Present Illness HPI Narrative: Patient is a 76-year-old male. Has a history of dementia. Is here with his . They are here for evaluation of 3 days of rectal pain that is radiating to his lower back and also some episodes of with the states his bowel incontinence. She states he is urinating normally. No fevers. Not complaining of abdominal pain. No blood in his stool. Patient is not having diarrhea. Over the past 3 days he has had some episodes where he has gone to the restroom in the toilet but then other episodes where he is having formed stools in his brief. She states that when she wipes him he is stating that he is having quite a bit of discomfort. Patient states that he feels fine. Related Data Home Medications Medication Instructions Recorded Confirmed aspirin 81 mg tablet,delayed 81 mg PO DAILY 09/14/18 10/31/21 release loratadine 10 mg tablet (Claritin) 10 mg PO DAILY 08/31/20 10/31/21 vitamin B complex (B 1 tab PO DAILY 08/31/20 10/31/21 Complex-Vitamin B12) Previous Rx's Medication Instructions Recorded rosuvastatin 5 mg tablet 5 mg PO DAILY #90 tab 01/26/20 sildenafil 100 mg tablet 100 mg PO DAILY PRN #10 tab 01/26/20 clotrimazole-betamethasone 1 1 applictn TOP BID 14 Days #45 gram 09/22/20 %-0.05 % topical cream albuterol sulfate 90 mcg/actuation 2 puff INHALATION Q6H PRN #18 gram 01/09/21 aerosol inhaler alfuzosin 10 mg tablet,extended 10 mg PO .hs #90 tab 02/08/21 release 24 hr memantine 10 mg tablet 10 mg PO BID #180 tab 04/05/21 amlodipine 5 mg tablet 5 mg PO DAILY #90 tab 04/16/21 lisinopril 5 mg tablet 5 mg PO DAILY #90 tab 05/15/21 gabapentin 100 mg capsule 300 mg PO TID #240 cap 05/23/21 donepezil 10 mg tablet See Rx Instructions .ROUTE 06/04/21 .COMPLEX #90 tab Disabled Parking Permit #1 ea 06/20/21 methimazole 5 mg tablet See Rx Instructions .ROUTE 08/09/21 .COMPLEX #90 tab tiotropium bromide 18 mcg capsule See Rx Instructions .ROUTE 08/09/21 with inhalation device (Spiriva .COMPLEX #90 capsule with HandiHaler) citalopram 40 mg tablet See Rx Instructions .ROUTE 08/28/21 .COMPLEX #90 tab azithromycin 250 mg tablet See Rx Instructions PO .COMPLEX #6 10/31/21 tab docusate sodium 100 mg capsule 100 mg PO BID PRN #14 cap 11/11/21 (Colace) lidocaine 5 % topical ointment 1 applic TOPICAL TID PRN #30 g 11/11/21 Allergies Allergy/AdvReac Type Severity Reaction Status Date / Time ezetimibe Allergy Mild Joint/Muscle Verified 11/11/21 11:39 Pain atorvastatin AdvReac Mild Joint/Muscle Verified 11/11/21 11:39 Pain simvastatin AdvReac Mild Joint/Muscle Verified 11/11/21 11:39 Pain Review of Systems Review of Systems Narrative: Provided by Constitutional Constitutional: Denies fever(s) Gastrointestinal Gastrointestinal: Reports as per HPI and Reports system reviewed and no additional complaints, except as documented Genitourinary Genitourinary: Reports system reviewed and no additional complaints, except as documented Neurologic Comments: No neurologic changes Hematologic/Lymphatic On Anticoagulants: No Patient History Medical History Actinic keratosis Anterior spinal artery compression syndromes, cervical region BPH w urinary obs/LUTS CAD (coronary artery disease) (~2001) Cervical spinal stenosis Chest pain Chronic diarrhea Chronic left-sided low back pain with left-sided sciatica Chronic seasonal allergic rhinitis COPD (chronic obstructive pulmonary disease) (~2009) Dementia Depression (~2016) Diarrhea Eczema Encounter for routine history and physical examination Enlarged prostate Exophthalmos of right eye Glaucoma Graves disease (~2004) Gum disease H/O nephrolithotomy with removal of calculi Hearing loss History of bronchitis History of migraine Hypercholesterolemia Hyperlipidemia Hypertension (~2005) Kidney stones Left knee pain Left ureteral stone Obesity (BMI 30-39.9) Obstructive sleep apnea Ocular myasthenia gravis Osteoarthritis Ptosis of eyelid, left Right hydrocele Screen for colon cancer Thyroid disease Thyroid nodule (~2016) Vascular dementia Vision loss (~1945) Surgical History Anesthesia H/O circumcision History of blepharoplasty (~04/23/17) History of cataract removal with insertion of prosthetic lens (~2015) History of coronary artery stent placement (~2004) History of eye surgery (~01/03/15) History of placement of stent in anterior descending branch of left coronary artery (~2009) History of strabismus surgery (~2002) History of total knee replacement (~09/24/18) Previous back surgery (~2005) Family History Father Accident Mother History of heart disease Sister Cancer Social History marital status: household members: spouse lives independently: Yes caregiver/support person: Yes () housing: house other: gardening, working in his shop Smoking Status: Former smoker alcohol intake: current caffeine: Yes Smoking Status: Former smoker tobacco type: cigarettes alcohol intake frequency: holidays/special occasions only Substance Use Type: does not use Exam Initial Vital Signs Initial Vital Signs: Vital Signs Temperature 98.1 F 11/11/21 11:35 Pulse Rate 82 11/11/21 11:35 Respiratory Rate 18 11/11/21 11:35 Blood Pressure 155/71 H 11/11/21 11:35 Pulse Oximetry 95 11/11/21 11:35 Const General: cooperative and No ill appearing HENMT Head: normal to inspection Resp Effort & Inspection: normal respiratory effort Cardio Rate: regular rate GI Inspection: normal to inspection Palpation: soft and No tender Rectal Exam: visual inspection normal, heme negative stool, No hemorrhoids, No laceration and No mass Other: Prostate normal size Skin General: no rashes or lesions noted Neuro General: patient alert, patient awake and moves all extremities Extrem General: normal to inspection and capillary refill normal Psych Appearance: grossly normal and well kempt Course Orders Ordered: ED Orders 11/11/21 11:51 XR abdomen 1V Stat 11/11/21 13:38 Urine Microscopic Stat Vital Signs Vital signs: Vital Signs - 8 hr 11/11/21 11:35 Temperature 98.1 F Pulse Rate 82 Respiratory Rate 18 Blood Pressure 155/71 H Pulse Oximetry 95 [facility] - Back Pain/Injury Lab Data Labs: Urine Dip Bedside Urine Glucose Negative Bedside Urine Bilirubin - Negative Bedside Urine Ketone - Negative Urine Specific Chauncey 1.015 Bedside Urine Occult Blood +/- Bedside Urine pH 6.0 Bedside Urine Protein - Negative Bedside Urine Urobilinogen - Negative Bedside Urine Nitrite - Negative Bedside Urine Leukocytes - Negative Esterase Imaging Data Abdominal x-ray: Radiologist's Impression: [address] [address] XRay Report Signed Patient: Aamir Wilkinson MR#: [id number] : 1945 Acct:[id number] Age/Sex: 76 / M Date of Service: 11/11/21 Loc: ED Accession Number: [id number] ?? Procedure: XR abdomen 1V Ordering Provider: Sunil Kwon D.O. PROCEDURE:? XR ABDOMEN 1V ? INDICATIONS:? ABD pain ? TECHNIQUE:? One view of the abdomen acquired.? ? COMPARISON:? None. ? FINDINGS:? ? Surgical changes and devices:? None.? ? Bowel:? Bowel gas pattern is normal.? Increased stool is seen throughout the bowel consistent with constipation. ? Soft tissues:? No suspicious abdominal calcifications.? Visualized solid organ contours appear normal in size.? ? Bones:? No suspicious bony lesions.? The lumbar spine has degenerative changes.? ? IMPRESSION:? 1. No acute plain film abnormality. 2. Constipation. ? ? Dictated by: Norman Rao M.D. on 11/11/2021 at 12:18 ? ? Approved by: Norman Rao M.D. on 11/11/2021 at 12:21? [facility] Narrative Medical decision making narrative: Patient is nontoxic appearing. He had no hemorrhoids noted on the exam. His abdomen was soft. X-ray shows constipation and this potentially could be the cause of his presenting discomfort. Patient is not retaining urine. He has a heme-negative stool. I did discuss this with the patient's . Plan will be is to give him a prescription for some lidocaine jelly. We will also try stool softeners. Feel we can hold on further radiologic studies for now. was given return precautions and follow-up instructions. She expressed understanding and agreement. Discharge Plan Departure Patient Disposition: Home Clinical Impression: Anal or rectal pain Instructions: DI for Constipation Activity Restrictions/Additional Instructions: I recommend that you continue all of his medications as directed. A prescription for a stool softener and also a lidocaine jelly was sent to [facility]. Use them as needed as directed. I do recommend you contact his carley mendoza provider for a follow-up. Return to the emergency department for any new symptoms to include fevers, vomiting, blood in the stool, abdominal distension her any other worsening symptoms. Prescriptions: New docusate sodium [Colace] 100 mg capsule 100 mg PO BID PRN (Reason: constipation) Qty: 14 0RF lidocaine 5 % ointment 1 applic topical TID PRN (Reason: pain) Qty: 30 0RF No Action azithromycin 250 mg tablet See Rx Instructions PO .COMPLEX Qty: 6 0RF Rx Instructions: Take 2 tablets (500mg) by mouth today (day 1), then 1 tablet (250mg) by mouth for 4 days (days 2-5). Finish all of this medication. albuterol sulfate 90 mcg/actuation HFA aerosol inhaler 2 puff INHALATION Q6H PRN (Reason: shortness of breath or wheezing) Qty: 18 11RF amlodipine 5 mg tablet 5 mg PO DAILY Qty: 90 3RF lisinopril 5 mg tablet 5 mg PO DAILY Qty: 90 3RF donepezil 10 mg tablet See Rx Instructions .ROUTE .COMPLEX Qty: 90 2RF Dose Instruction: TAKE ONE TABLET BY MOUTH AT BEDTIME Rx Instructions: TAKE ONE TABLET BY MOUTH AT BEDTIME methimazole 5 mg tablet See Rx Instructions .ROUTE .COMPLEX Qty: 90 0RF Dose Instruction: TAKE ONE TABLET BY MOUTH ONCE DAILY Rx Instructions: TAKE ONE TABLET BY MOUTH ONCE DAILY Spiriva with HandiHaler 18 mcg capsule, w/inhalation device See Rx Instructions .ROUTE .COMPLEX Qty: 90 0RF Dose Instruction: PLACE 1 CAPSULE INTO INHALER AND INHALE DAILY Rx Instructions: PLACE 1 CAPSULE INTO INHALER AND INHALE DAILY citalopram 40 mg tablet See Rx Instructions .ROUTE .COMPLEX Qty: 90 1RF Dose Instruction: TAKE ONE TABLET BY MOUTH ONCE DAILY Rx Instructions: TAKE ONE TABLET BY MOUTH ONCE DAILY vitamin B complex [B Complex-Vitamin B12] Tablet 1 tab PO DAILY 0RF loratadine [Claritin] 10 mg tablet 10 mg PO DAILY 0RF clotrimazole-betamethasone 1-0.05 % cream 1 applictn TOP BID 14 Days Qty: 45 1RF memantine 10 mg tablet 10 mg PO BID Qty: 180 3RF rosuvastatin 5 mg tablet 5 mg PO DAILY Qty: 90 3RF sildenafil 100 mg tablet 100 mg PO DAILY PRN (Reason: Erectile Dysfunction) Qty: 10 5RF gabapentin 100 mg capsule 300 mg PO TID Qty: 240 1RF Rx Instructions: Start with 1 cap daily and increase every 3rd day up to 300mg TID (DME) Disabled Parking Permit See Rx Instructions .Route .MEDSUPPLY Qty: 1 0RF Rx Instructions: As directed aspirin 81 mg Tablet,Delayed Release (Dr/Ec) 81 mg PO DAILY 0RF alfuzosin 10 mg tablet extended release 24 hr 10 mg PO .hs Qty: 90 3RF Referrals: Jm Tirado DO [Primary Care Provider] -
--- NOTE | 2021-11-11 11:54 | PC.NURSE ---
reports pt having new onset intermittent incontinence of bladder and bowel for the past few days. Bowel sounds active in all 4 quadrants, soft and nontender on palpitation. Respiration equal bilaterally, clear in LUQ and RUQ, diminished in LLQ and RLQ.
--- NOTE | 2021-11-11 13:47 | PC.NURSE ---
Pt used call light and this BEHAVIOR SUPPORT SPECIALIST answered. Pt requested the urinal. Pt was able to stand up and use urinal appropriately. Pt was able to lower and pull up pants independently, as well.
[2021-11-11 13:55] VITALS: BP 137/65; PULSE 73; RESP 20; O2SAT 94
[2021-11-11 14:43] LABS: Amorphous Sediment Urine 1+; Bacteria Urine None Seen; Culture Indicated Urine Cult Not Indicated; RBC Urine 1-5/HPF (0-5/HPF); WBC Urine None Seen (0-5/HPF)
== END 2021-11-11 13:57 | disposition home or self-care (01) ==
PROVIDERS: Emergency Provider Emergency Medicine; PCP Family Medicine
DX: K59.00 Constipation, unspecified (principal); K62.89 Other specified diseases of anus and rectum
CPT/HCPCS: 51798; 74018; 81003; 81015; 99283

== ENCOUNTER 2022-04-19 13:27 | Inpatient (IN) | payer MEDICARE, OTHER, SELFPAY ==
[2021-02-08 11:32] VITALS: BMI 29.5
[2022-04-19] VITALS (29 sets, daily range): BP systolic 110–148; BP diastolic 58–92; PULSE 61–78; RESP 13–24; TEMP 36.6; O2SAT 93–98; BMI 25.2
--- NOTE | 2022-04-19 13:33 | DI.RAD.S_ITS ---
PROCEDURE: XR CHEST 1V INDICATIONS: chest pain TECHNIQUE: One view of the chest was acquired. COMPARISON: [facility], CR, XR CHEST 1V, 10/16/2021, 13:51. FINDINGS: Surgical changes and devices: None. Lungs and pleura: Lungs are clear. No pleural effusions or pneumothorax. Mediastinum: Mediastinal contours appear normal. Heart size is mildly enlarged. Bones and chest wall: No suspicious bony lesions. Overlying soft tissues appear unremarkable. IMPRESSION: No acute pulmonary process. Dictated by: Mellisa Francois M.D. on 04/19/2022 at 13:50 Approved by: Mellisa Francois M.D. on 04/19/2022 at 13:51
--- NOTE | 2022-04-19 13:33 | DI.CT.S_ITS ---
PROCEDURE: CT HEAD/BRAIN WO CON INDICATIONS: fall, dementia TECHNIQUE: Noncontrast 4.5 mm thick angled axial sections acquired from the foramen magnum to the vertex, with coronal and sagittal reformats. For radiation dose reduction, the following was used: automated exposure control, adjustment of mA and/or kV according to patient size. COMPARISON: [facility], MR, MR BRAIN WITHOUT CONTRAST, 03/15/2022, 17:05. MR, MR HEAD/BRAIN WO CON, 01/30/2019, 12:40. FINDINGS: Image quality: Excellent. CSF spaces: Basal cisterns are patent. No extra-axial fluid collections. The ventricles are symmetric in size and shape. Brain: No intracranial bleeds or masses. Small chronic left parietal infarct stable compared to March 15, 2022. There is cerebral volume loss for age, with resultant ventricular and sulcal prominence. There are periventricular and deep white matter chronic small vessel ischemic changes. There is intracranial internal carotid artery atherosclerosis. Skull and face: Calvarium and visualized facial bones appear intact, without suspicious lesions. Sinuses: Visualized sinuses and mastoids are clear. IMPRESSION: No acute intracranial disease process. Dictated by: Charity Leroy MD, PhD on 04/19/2022 at 13:50 Approved by: Charity Leroy MD, PhD on 04/19/2022 at 13:54
[2022-04-19 13:38] LABS: Add Manual Diff / Slide Review NO; Basophils Absolute Auto 100 /uL (0-100); Basophils Percent Auto 0.4 % (0-2); Eosinophils Absolute Auto 100 /uL (0-450); Eosinophils Percent Auto 0.7 % (2-4); Hematocrit 29.2 % (41-53); Hemoglobin 9.6 g/dL (13.5-17.5); Lymphocytes Absolute Auto 1200 /uL (1100-4500); Lymphocytes Percent Auto 7.3 % (25-40); Mean Corpuscular HGB Conc 32.7 % (30-36); Mean Corpuscular Volume 82.5 fL (80-100); Monocytes Absolute Auto 600 /uL (0-900); Monocytes Percent Auto 3.9 % (3-14); Neutrophils Absolute Auto 14200 /uL (1500-7000); Neutrophils Percent Auto 87.7 % (50-75); Platelet Count 456 X10^3/uL (150-400); Red Blood Cell Count 3.54 X10^6/uL (4.5-5.9); Red Cell Distribution Width 15.2 % (11.6-14.8); White Blood Cell Count 16.2 X10^3/uL (4.5-11.0)
[2022-04-19 13:45] LABS: INR 1.3 (0.9-1.3); Prothrombin Time 14.7 SECONDS (10.1-12.7)
[2022-04-19 13:47] LABS: PTT Partial Thromboplastin Tim 26 SECONDS (26.4-36.2)
[2022-04-19 13:53] LABS: Alanine Aminotransferase 14 IU/L (<50); Albumin 4.1 g/dL (3.5-5.0); Albumin Globulin Ratio 1.1 (1.0-2.8); Alkaline Phosphatase 66 U/L (38-126); Aspartate Aminotransferase 24 IU/L (17-59); BUN Creatinine Ratio 28.2 (6-22); Bilirubin Total 0.3 mg/dL (0.2-1.3); Blood Urea Nitrogen 20 mg/dL (9-20); Calcium 8.9 mg/dL (8.4-10.2); Carbon Dioxide 26 mmol/L (22-32); Chloride 102 mmol/L (98-107); Creatine Kinase 130 U/L (55-170); Estimated Glomerular Filt Rate > 60 mL/min (>60); Globulin 3.6 g/dL (1.7-4.1); Glucose 137 mg/dL (80-110); HEMOLYSIS < 15 (0-50); Lipase 44 U/L (23-300); Magnesium 1.8 mg/dL (1.6-2.3); Potassium 3.7 mmol/L (3.4-5.1); Sodium 137 mmol/L (137-145); Total Protein 7.7 g/dL (6.3-8.2)
[2022-04-19 14:03] LABS: Troponin I 0.042 ng/mL (0.01-0.034)
[2022-04-19 14:08] LABS: CKMB % Relative Index 1.2 % (1.5-5.0); Creatine Kinase MB 1.59 ng/mL (<2.37)
[2022-04-19 14:19] LABS: NT-proBNP (BNP-Adult 18+) 239 pg/mL (<450)
--- NOTE | 2022-04-19 15:36 | ED.SYNCOPE ---
HPI - Syncope <Luz Hernandez, DO - Last Filed: 04/22/22 16:20> General Chief Complaint: Syncope Stated Complaint: Fall Time Seen by Provider: 04/19/22 13:41 Source: patient and EMS Mode of arrival: Ambulatory Limitations: altered mental status History of Present Illness HPI narrative: This is a male with history of dementia, patient has COPD, hypertension, BPH, ocular myasthenia (per patient no longer takes his myasthenia medications for the last several years) is on daily antidepressant with prior cardiac stents of RCA followed by Left circumflex in 2009 and multiple eye surgeries. states he has had some chronic unsteadiness on his feet. He had a ground level fall in the garage today spent about 30 minutes on the floor. Patient states that he lost his balance and fell down. Medics came assisted him up and when they stood he had a near syncopal event patient does not believe that he was dizzy or had a syncopal event in the garage. He denies any pain except for some epigastric discomfort which he chronically has. No neck or back pain. No chest pain or shortness of breath. Denies nausea or vomiting. He has had chronic constipation. No urinary symptoms. No numbness or tingling of his extremities. Patient's primary care is Dr. Tirado he does follow with a neurologist. No known drug allergies. No tobacco, alcohol or illicit. Related Data Home Medications Medication Instructions Recorded Confirmed aspirin 81 mg tablet,delayed 81 mg PO DAILY 09/14/18 04/21/22 release vitamin B complex (B 1 tab PO DAILY 08/31/20 04/21/22 Complex-Vitamin B12) [employer] BIPAP 12/18/21 04/22/22 divalproex 250 mg tablet,delayed 250 mg PO BEDTIME 04/21/22 04/21/22 release Previous Rx's Medication Instructions Recorded rosuvastatin 5 mg tablet 5 mg PO DAILY #90 tab 01/26/20 sildenafil 100 mg tablet 100 mg PO DAILY PRN #10 tab 01/26/20 albuterol sulfate 90 mcg/actuation 2 puff INHALATION Q6H PRN #18 gram 01/09/21 aerosol inhaler memantine 10 mg tablet 10 mg PO BID #180 tab 04/05/21 amlodipine 5 mg tablet 5 mg PO DAILY #90 tab 04/16/21 lisinopril 5 mg tablet 5 mg PO DAILY #90 tab 05/15/21 donepezil 10 mg tablet See Rx Instructions .ROUTE 06/04/21 .COMPLEX #90 tab Disabled Parking Permit #1 ea 06/20/21 methimazole 5 mg tablet See Rx Instructions .ROUTE 02/04/22 .COMPLEX #90 tab tiotropium bromide 18 mcg capsule See Rx Instructions .ROUTE 02/04/22 with inhalation device (Spiriva .COMPLEX #90 cap with HandiHaler) citalopram 40 mg tablet See Rx Instructions .ROUTE 02/25/22 .COMPLEX #90 tab clotrimazole-betamethasone 1 1 applic TOP BID 14 Days #45 gram 04/17/22 %-0.05 % topical cream alfuzosin 10 mg tablet,extended 10 mg PO .hs #90 tab 04/18/22 release 24 hr Allergies Allergy/AdvReac Type Severity Reaction Status Date / Time ezetimibe Allergy Mild Joint/Muscle Verified 03/08/22 15:36 Pain atorvastatin AdvReac Mild Joint/Muscle Verified 03/08/22 15:36 Pain simvastatin AdvReac Mild Joint/Muscle Verified 03/08/22 15:36 Pain Review of Systems <Luz Hernandez DO - Last Filed: 04/22/22 16:20> Review of Systems ROS Unobtainable: All systems reviewed & are unremarkable except as noted in HPI and below Patient History <Luz Hernandez DO - Last Filed: 04/22/22 16:20> Medical History Actinic keratosis Anterior spinal artery compression syndromes, cervical region BPH w urinary obs/LUTS CAD (coronary artery disease) (~2001) Cervical spinal stenosis Chest pain Chronic diarrhea Chronic left-sided low back pain with left-sided sciatica Chronic seasonal allergic rhinitis COPD (chronic obstructive pulmonary disease) (~2009) Dementia Depression (~2015) Diarrhea Eczema Encounter for routine history and physical examination Enlarged prostate Exophthalmos of right eye Glaucoma Graves disease (~2004) Gum disease H/O nephrolithotomy with removal of calculi Hearing loss History of bronchitis History of migraine Hypercholesterolemia Hyperlipidemia Hypertension (~2005) Kidney stones Left knee pain Left upper quadrant abdominal pain Left ureteral stone Obesity (BMI 30-39.9) Obstructive sleep apnea Ocular myasthenia gravis Osteoarthritis Ptosis of eyelid, left Right hydrocele Screen for colon cancer Thyroid disease Thyroid nodule (~2016) Vascular dementia Vision loss (~1945) Surgical History Anesthesia H/O circumcision History of blepharoplasty (~04/23/17) History of cataract removal with insertion of prosthetic lens (~2015) History of coronary artery stent placement (~2004) History of eye surgery (~01/03/15) History of placement of stent in anterior descending branch of left coronary artery (~2009) History of strabismus surgery (~2002) History of total knee replacement (~09/24/18) Previous back surgery (~2005) Family History Father Accident Mother History of heart disease Sister Cancer Social History marital status: household members: spouse lives independently: Yes caregiver/support person: Yes () housing: house other: gardening, working in his shop Smoking Status: Former smoker alcohol intake: current caffeine: Yes Smoking Status: Former smoker tobacco type: cigarettes alcohol intake frequency: holidays/special occasions only Substance Use Type: does not use Exam <Luz Hernandez DO - Last Filed: 04/22/22 16:20> Narrative Exam Narrative: GEN: well nourished, well appearing male, alert and oriented x 3, patient appears to be in mild distress. HEENT: Atraumatic, pupils are equal round reactive to light, extraocular movements are intact, nares are clear, TMs are clear with no fluid, there is no conjunctival pallor. Throat is clear without any exudates, erythema, tonsillar enlargement or uvular deviation HEART: Regular rate and rhythm without murmur, clicks, rubs. LUNGS:Lungs clear to auscultation, no wheezes, rales, crackles, chest moves symmetrically ABD:bowel sounds normal, soft, non-tender, no guarding, rebound, rigidity, no masses noted, no hepatosplenomegaly :No CVA tenderness MSCL: Non-tender, no muscle atrophy, muscles strength 5/5 upper and lower extremities, full range of motion, normal gait NEURO:CN 2-12 intact, sensation normal, reflexes 2/4 upper and lower extremities. SKIN: No rash, erythema or other skin changes. Initial Vital Signs Initial Vital Signs: Vital Signs Temperature 97.8 F 04/19/22 13:27 Pulse Rate 63 04/19/22 13:27 Respiratory Rate 18 04/19/22 13:27 Blood Pressure 125/60 04/19/22 13:27 Pulse Oximetry 96 04/19/22 13:27 <Sunil Kwon DO - Last Filed: 04/21/22 18:39> Initial Vital Signs Initial Vital Signs: Vital Signs Temperature 97.8 F 04/19/22 13:27 Pulse Rate 63 04/19/22 13:27 Respiratory Rate 18 04/19/22 13:27 Blood Pressure 125/60 04/19/22 13:27 Pulse Oximetry 96 04/19/22 13:27 <Jarrell Maldonado MD - Last Filed: 04/21/22 13:40> Initial Vital Signs Initial Vital Signs: Vital Signs Temperature 97.8 F 04/19/22 13:27 Pulse Rate 63 04/19/22 13:27 Respiratory Rate 18 04/19/22 13:27 Blood Pressure 125/60 04/19/22 13:27 Pulse Oximetry 96 04/19/22 13:27 Course <Luz Hernandez DO - Last Filed: 04/22/22 16:20> Orders Ordered: Acetaminophen (Acetaminophen 325 Mg Tablet) 650 mg PO Q6HR PRN PRN Reason: Fever/Mild Pain (1-3) Aspirin (Aspirin Ec 81 Mg Tablet) 81 mg PO DAILY [facility] Last Admin: 04/22/22 08:12 Dose: 81 mg Documented by: [email or web address] Atorvastatin Calcium (Atorvastatin 20 Mg Tablet) 40 mg PO DAILY [facility] Last Admin: 04/22/22 08:18 Dose: Not Given Documented by: [email or web address] Citalopram Hydrobromide (Citalopram 10 Mg Tablet) 20 mg PO DAILY [facility] Last Admin: 04/22/22 08:12 Dose: 20 mg Documented by: [email or web address] Clopidogrel Bisulfate (Clopidogrel 75 Mg Tablet) 75 mg PO DAILY [facility] Last Admin: 04/22/22 08:11 Dose: 75 mg Documented by: DREW.CHILL Divalproex Sodium (Divalproex Dr 250 Mg Tablet) 250 mg PO BID [facility] Last Admin: 04/22/22 08:12 Dose: 250 mg Documented by: Admin: 04/21/22 20:55 Dose: 250 mg Documented by: CTR.[email or web address] Admin: 04/21/22 09:00 Dose: 250 mg Documented by: Admin: 04/20/22 21:01 Dose: Not Given Documented by: Admin: 04/20/22 08:29 Dose: Not Given Documented by: Admin: 04/20/22 08:23 Dose: 250 mg Documented by: BRITTANEY Donepezil HCl (Donepezil 5 Mg Tablet) 10 mg PO BEDTIME [facility] Last Admin: 04/21/22 20:56 Dose: 10 mg Documented by: CTR.RFUENT Heparin Sodium/Dextrose (Heparin Drip) 25,000 unit in 500 mls @ 20 mls/hr IV CONT [facility]; Protocol Last Admin: 04/21/22 20:11 Dose: 850 units/hr, 17 mls/hr Documented by: CTR.RFUENT Titration: 04/21/22 18:29 Dose: 850 units/hr, 17 mls/hr Documented by: CTRCORTESUENT Titration: 04/21/22 05:37 Dose: 850 units/hr, 17 mls/hr Documented by: Titration: 04/21/22 00:55 Dose: 900 units/hr, 18 mls/hr Documented by: Admin: 04/20/22 15:33 Dose: 1,050 units/hr, 21 mls/hr Documented by: Titration: 04/20/22 15:33 Dose: 1,050 units/hr, 21 mls/hr Documented by: Titration: 04/20/22 05:45 Dose: 1,050 units/hr, 21 mls/hr Documented by: Admin: 04/19/22 17:16 Dose: 1,000 units/hr, 20 mls/hr Documented by: FLORA Lisinopril (Lisinopril 5 Mg Tablet) 5 mg PO DAILY [facility] Last Admin: 04/22/22 08:12 Dose: 5 mg Documented by: Admin: 04/21/22 09:00 Dose: 5 mg Documented by: Admin: 04/20/22 08:30 Dose: Not Given Documented by: Admin: 04/20/22 08:23 Dose: 5 mg Documented by: BRITTANEY Magnesium Hydroxide (Magnesium Hydroxide 30 Ml Udc) 30 ml PO DAILY PRN PRN Reason: Constipation Memantine (Memantine Hcl 5 Mg Tablet) 10 mg PO BID [facility] Last Admin: 04/22/22 12:25 Dose: 10 mg Documented by: Admin: 04/21/22 20:56 Dose: 10 mg Documented by: Admin: 04/21/22 09:00 Dose: 10 mg Documented by: Admin: 04/20/22 21:15 Dose: 10 mg Documented by: Admin: 04/20/22 08:30 Dose: Not Given Documented by: Admin: 04/20/22 08:21 Dose: 10 mg Documented by: BRITTANEY Methimazole (Methimazole 5 Mg Tablet) 5 mg PO DAILY [facility] Last Admin: 04/22/22 08:12 Dose: 5 mg Documented by: Admin: 04/21/22 09:54 Dose: 5 mg Documented by: Admin: 04/20/22 08:31 Dose: Not Given Documented by: Admin: 04/20/22 08:22 Dose: 5 mg Documented by: BRITTANEY Metoprolol Tartrate (Metoprolol Ir 25 Mg Tablet) 12.5 mg PO BID [facility] Last Admin: 04/22/22 08:14 Dose: 12.5 mg Documented by: Admin: 04/21/22 20:55 Dose: 12.5 mg Documented by: RFBALDEMAR Pantoprazole Sodium (Pantoprazole Dr 40 Mg Tablet) 40 mg PO 0700 [facility] Quetiapine Fumarate (Quetiapine 25 Mg Tablet) 25 mg PO DAILY@1600 [facility] Tamsulosin HCl (Tamsulosin 0.4 Mg Capsule) 0.4 mg PO DAILY [facility] Last Admin: 04/22/22 08:12 Dose: 0.4 mg Documented by: PRAMOD Discontinued Medications Acetaminophen (Acetaminophen 325 Mg Tablet) 650 mg PO NOW ONE Stop: 04/20/22 15:17 Last Admin: 04/20/22 16:02 Dose: 650 mg Documented by: DIANNA Aspirin (Aspirin 81 Mg Chew Tab) 324 mg PO NOW ONE Stop: 04/19/22 16:36 Last Admin: 04/19/22 17:15 Dose: 324 mg Documented by: FLORA Aspirin (Aspirin 81 Mg Chew Tab) 324 mg PO NOW ONE Stop: 04/20/22 08:16 Last Admin: 04/20/22 08:18 Dose: 324 mg Documented by: BRITTANEY Atorvastatin Calcium (Atorvastatin 20 Mg Tablet) 80 mg PO NOW ONE Stop: 04/19/22 18:29 Last Admin: 04/19/22 18:38 Dose: 80 mg Documented by: ANN MARIE Atorvastatin Calcium (Atorvastatin 20 Mg Tablet) 80 mg PO DAILY [facility] Last Admin: 04/21/22 09:00 Dose: 80 mg Documented by: Admin: 04/20/22 21:15 Dose: 80 mg Documented by: DIANNA Citalopram Hydrobromide (Citalopram 10 Mg Tablet) 40 mg PO DAILY [facility] Divalproex Sodium (Divalproex Dr 250 Mg Tablet) 250 mg PO NOW ONE Stop: 04/20/22 18:57 Last Admin: 04/20/22 19:09 Dose: 250 mg Documented by: DIANNA Heparin Sodium (Porcine) (Heparin 5,000 Unit/Ml Vial) 5,000 unit IV NOW ONE Stop: 04/19/22 17:04 Last Admin: 04/19/22 17:16 Dose: 5,000 unit Documented by: FLORA Memantine (Memantine Hcl 5 Mg Tablet) 10 mg PO NOW ONE Stop: 04/19/22 21:04 Last Admin: 04/19/22 21:26 Dose: 10 mg Documented by: NATO Pantoprazole Sodium (Pantoprazole 40 Mg Vial) 40 mg IV DAILY [facility] Last Admin: 04/22/22 08:14 Dose: 40 mg Documented by: Admin: 04/21/22 09:00 Dose: 40 mg Documented by: Admin: 04/20/22 08:31 Dose: Not Given Documented by: Admin: 04/20/22 08:25 Dose: 40 mg Documented by: BRITTANEY Potassium Chloride (Potassium Chloride 20 Meq Tab) 40 meq PO NOW ONE Stop: 04/22/22 10:53 Last Admin: 04/22/22 12:24 Dose: 40 meq Documented by: JAZIEL Quetiapine Fumarate (Quetiapine 25 Mg Tablet) 25 mg PO NOW ONE Stop: 04/21/22 16:47 Last Admin: 04/21/22 17:24 Dose: 25 mg Documented by: JAZIEL Reevaluation(s) Reevaluation #1: Patient and updated patient has left bundle unclear if this is new patient has no priors available to myself for comparison but troponins are trending upwards. They are open to medical intervention. Unsure patient is DNR/DNI status. Consultations Consultation #1: Dr. Clark, cardiology recommends treat for ACS. They have seen patient before in dec 2020. Has new LBBB. Treat for ACS aspirin, heparin and recommends transfer to facility with cardiac catheterization. They are happy to see patient there if they have beds available. Time: 17:11 Vital Signs Vital signs: Vital Signs - 8 hr 04/21/22 11:00 04/21/22 11:30 04/21/22 12:00 Pulse Rate 79 76 75 Respiratory Rate 24 19 19 Blood Pressure 132/72 Pulse Oximetry 95 96 94 04/21/22 12:30 04/21/22 13:00 04/21/22 13:30 Pulse Rate 71 72 75 Respiratory Rate 20 23 Blood Pressure Pulse Oximetry 98 93 94 <Sunil Kwon, DO - Last Filed: 04/21/22 18:39> Orders Ordered: Acetaminophen (Acetaminophen 325 Mg Tablet) 650 mg PO Q6HR PRN PRN Reason: Fever/Mild Pain (1-3) Aspirin (Aspirin Ec 81 Mg Tablet) 81 mg PO DAILY [facility] Last Admin: 04/22/22 08:12 Dose: 81 mg Documented by: PRAMOD Atorvastatin Calcium (Atorvastatin 20 Mg Tablet) 40 mg PO DAILY [facility] Last Admin: 04/22/22 08:18 Dose: Not Given Documented by: PRAMOD Citalopram Hydrobromide (Citalopram 10 Mg Tablet) 20 mg PO DAILY [facility] Last Admin: 04/22/22 08:12 Dose: 20 mg Documented by: PRAMOD Clopidogrel Bisulfate (Clopidogrel 75 Mg Tablet) 75 mg PO DAILY [facility] Last Admin: 04/22/22 08:11 Dose: 75 mg Documented by: PRAMOD Divalproex Sodium (Divalproex Dr 250 Mg Tablet) 250 mg PO BID [facility] Last Admin: 04/22/22 08:12 Dose: 250 mg Documented by: Admin: 04/21/22 20:55 Dose: 250 mg Documented by: CTR.[email or web address] Admin: 04/21/22 09:00 Dose: 250 mg Documented by: Admin: 04/20/22 21:01 Dose: Not Given Documented by: Admin: 04/20/22 08:29 Dose: Not Given Documented by: Admin: 04/20/22 08:23 Dose: 250 mg Documented by: BRITTANEY Donepezil HCl (Donepezil 5 Mg Tablet) 10 mg PO BEDTIME [facility] Last Admin: 04/21/22 20:56 Dose: 10 mg Documented by: CTRSatyaRFUENT Heparin Sodium/Dextrose (Heparin Drip) 25,000 unit in 500 mls @ 20 mls/hr IV CONT [facility]; Protocol Last Admin: 04/21/22 20:11 Dose: 850 units/hr, 17 mls/hr Documented by: CTR.[email or web address] Titration: 04/21/22 18:29 Dose: 850 units/hr, 17 mls/hr Documented by: CTRCORTESUENT Titration: 04/21/22 05:37 Dose: 850 units/hr, 17 mls/hr Documented by: Titration: 04/21/22 00:55 Dose: 900 units/hr, 18 mls/hr Documented by: Admin: 04/20/22 15:33 Dose: 1,050 units/hr, 21 mls/hr Documented by: Titration: 04/20/22 15:33 Dose: 1,050 units/hr, 21 mls/hr Documented by: Titration: 04/20/22 05:45 Dose: 1,050 units/hr, 21 mls/hr Documented by: Admin: 04/19/22 17:16 Dose: 1,000 units/hr, 20 mls/hr Documented by: FLORA Lisinopril (Lisinopril 5 Mg Tablet) 5 mg PO DAILY [facility] Last Admin: 04/22/22 08:12 Dose: 5 mg Documented by: Admin: 04/21/22 09:00 Dose: 5 mg Documented by: Admin: 04/20/22 08:30 Dose: Not Given Documented by: Admin: 04/20/22 08:23 Dose: 5 mg Documented by: BRITTANEY Magnesium Hydroxide (Magnesium Hydroxide 30 Ml Udc) 30 ml PO DAILY PRN PRN Reason: Constipation Memantine (Memantine Hcl 5 Mg Tablet) 10 mg PO BID [facility] Last Admin: 04/22/22 12:25 Dose: 10 mg Documented by: Admin: 04/21/22 20:56 Dose: 10 mg Documented by: Admin: 04/21/22 09:00 Dose: 10 mg Documented by: Admin: 04/20/22 21:15 Dose: 10 mg Documented by: Admin: 04/20/22 08:30 Dose: Not Given Documented by: Admin: 04/20/22 08:21 Dose: 10 mg Documented by: BRITTANEY Methimazole (Methimazole 5 Mg Tablet) 5 mg PO DAILY [facility] Last Admin: 04/22/22 08:12 Dose: 5 mg Documented by: Admin: 04/21/22 09:54 Dose: 5 mg Documented by: Admin: 04/20/22 08:31 Dose: Not Given Documented by: Admin: 04/20/22 08:22 Dose: 5 mg Documented by: BRITTANEY Metoprolol Tartrate (Metoprolol Ir 25 Mg Tablet) 12.5 mg PO BID [facility] Last Admin: 04/22/22 08:14 Dose: 12.5 mg Documented by: Admin: 04/21/22 20:55 Dose: 12.5 mg Documented by: RFUENT Pantoprazole Sodium (Pantoprazole Dr 40 Mg Tablet) 40 mg PO 0700 [facility] Quetiapine Fumarate (Quetiapine 25 Mg Tablet) 25 mg PO DAILY@1600 [facility] Tamsulosin HCl (Tamsulosin 0.4 Mg Capsule) 0.4 mg PO DAILY [facility] Last Admin: 04/22/22 08:12 Dose: 0.4 mg Documented by: PRAMOD Discontinued Medications Acetaminophen (Acetaminophen 325 Mg Tablet) 650 mg PO NOW ONE Stop: 04/20/22 15:17 Last Admin: 04/20/22 16:02 Dose: 650 mg Documented by: DIANNA Aspirin (Aspirin 81 Mg Chew Tab) 324 mg PO NOW ONE Stop: 04/19/22 16:36 Last Admin: 04/19/22 17:15 Dose: 324 mg Documented by: FLORA Aspirin (Aspirin 81 Mg Chew Tab) 324 mg PO NOW ONE Stop: 04/20/22 08:16 Last Admin: 04/20/22 08:18 Dose: 324 mg Documented by: BRITTANEY Atorvastatin Calcium (Atorvastatin 20 Mg Tablet) 80 mg PO NOW ONE Stop: 04/19/22 18:29 Last Admin: 04/19/22 18:38 Dose: 80 mg Documented by: ANN MARIE Atorvastatin Calcium (Atorvastatin 20 Mg Tablet) 80 mg PO DAILY [facility] Last Admin: 04/21/22 09:00 Dose: 80 mg Documented by: Admin: 04/20/22 21:15 Dose: 80 mg Documented by: DIANNA Citalopram Hydrobromide (Citalopram 10 Mg Tablet) 40 mg PO DAILY [facility] Divalproex Sodium (Divalproex Dr 250 Mg Tablet) 250 mg PO NOW ONE Stop: 04/20/22 18:57 Last Admin: 04/20/22 19:09 Dose: 250 mg Documented by: DIANNA Heparin Sodium (Porcine) (Heparin 5,000 Unit/Ml Vial) 5,000 unit IV NOW ONE Stop: 04/19/22 17:04 Last Admin: 04/19/22 17:16 Dose: 5,000 unit Documented by: FLORA Memantine (Memantine Hcl 5 Mg Tablet) 10 mg PO NOW ONE Stop: 04/19/22 21:04 Last Admin: 04/19/22 21:26 Dose: 10 mg Documented by: NATO Pantoprazole Sodium (Pantoprazole 40 Mg Vial) 40 mg IV DAILY [facility] Last Admin: 04/22/22 08:14 Dose: 40 mg Documented by: Admin: 04/21/22 09:00 Dose: 40 mg Documented by: Admin: 04/20/22 08:31 Dose: Not Given Documented by: Admin: 04/20/22 08:25 Dose: 40 mg Documented by: BRITTANEY Potassium Chloride (Potassium Chloride 20 Meq Tab) 40 meq PO NOW ONE Stop: 04/22/22 10:53 Last Admin: 04/22/22 12:24 Dose: 40 meq Documented by: JAZIEL Quetiapine Fumarate (Quetiapine 25 Mg Tablet) 25 mg PO NOW ONE Stop: 04/21/22 16:47 Last Admin: 04/21/22 17:24 Dose: 25 mg Documented by: JAZIEL Vital Signs Vital signs: Vital Signs - 8 hr 04/21/22 11:00 04/21/22 11:30 04/21/22 12:00 Pulse Rate 79 76 75 Respiratory Rate 24 19 19 Blood Pressure 132/72 Pulse Oximetry 95 96 94 04/21/22 12:30 04/21/22 13:00 04/21/22 13:30 Pulse Rate 71 72 75 Respiratory Rate 20 23 Blood Pressure Pulse Oximetry 98 93 94 <Jarrell Maldonado MD - Last Filed: 04/21/22 13:40> Course Course Narrative: The patient has been here greater than 48 hours. The gentleman has hypertension, CAD, COPD, vascular dementia, and myasthenia gravis, amongst this healthcare issues. He presented here by EMS after a syncopal episode at home. His described him as having difficulty getting up once paramedics arrived. Upon arrival here, it was discovered the had a non-STEMI. There is no suggestion of chest pain. Monitor shows a left bundle branch block. Old EKGs shows him to be in normal sinus rhythm with no ectopy in 2018. 2020 EKG shows left bundle-branch block. The LBBB is not acute. I assumed care of the patient at change of shift, 0 700. He is on heparin drip. He is comfortable no chest pain. I have advanced his diet, he is now eating a full diet. His troponin peaked at a 8.4, and is now decreased to 1.63. His confirmed a DNR status, but would invite invasive cardiac care if the need arises. The patient has been here for 2 days awaiting such disposition. This afternoon, the troponin continues to drop. I again discussed the patient's code status with his . With anxiety she confirms the DNR status. She would like placement in a care facility, she cannot care for him at home. I discussed clinical session with the on-call lace pinner, Dr. Mendes. He reviewed medical records in their office. He was last seen last year, cardiac medications were continued. There is no recent echo in their records. He has not received an echocardiogram here recently. On exam, patient's vitals are stable. He is alert, responsive, but disoriented. He is a baseline. Lungs are clear. Cardiovascular exam is normal. Given the current clinical situation, cardiology endorsed local admission, echocardiogram, and medication management. transportation services representative should be involved for follow-up placement. The case is discussed with the hospitalist, Dr. Askew. The patient will be admitted here for continue care, with DNR status. Phill QUINTEROS 04/21/22@1338pm. Orders Ordered: Acetaminophen (Acetaminophen 325 Mg Tablet) 650 mg PO Q6HR PRN PRN Reason: Fever/Mild Pain (1-3) Aspirin (Aspirin Ec 81 Mg Tablet) 81 mg PO DAILY [facility] Last Admin: 04/22/22 08:12 Dose: 81 mg Documented by: EDU.CHILL Atorvastatin Calcium (Atorvastatin 20 Mg Tablet) 40 mg PO DAILY [facility] Last Admin: 04/22/22 08:18 Dose: Not Given Documented by: EDU.CHILL Citalopram Hydrobromide (Citalopram 10 Mg Tablet) 20 mg PO DAILY [facility] Last Admin: 04/22/22 08:12 Dose: 20 mg Documented by: EDU.CHILL Clopidogrel Bisulfate (Clopidogrel 75 Mg Tablet) 75 mg PO DAILY [facility] Last Admin: 04/22/22 08:11 Dose: 75 mg Documented by: EDU.CHILL Divalproex Sodium (Divalproex Dr 250 Mg Tablet) 250 mg PO BID [facility] Last Admin: 04/22/22 08:12 Dose: 250 mg Documented by: DREW.CHILL Admin: 04/21/22 20:55 Dose: 250 mg Documented by: CTR.RFUENT Admin: 04/21/22 09:00 Dose: 250 mg Documented by: Admin: 04/20/22 21:01 Dose: Not Given Documented by: Admin: 04/20/22 08:29 Dose: Not Given Documented by: Admin: 04/20/22 08:23 Dose: 250 mg Documented by: BRITTANEY Donepezil HCl (Donepezil 5 Mg Tablet) 10 mg PO BEDTIME [facility] Last Admin: 04/21/22 20:56 Dose: 10 mg Documented by: CTR.RFUENT Heparin Sodium/Dextrose (Heparin Drip) 25,000 unit in 500 mls @ 20 mls/hr IV CONT [facility]; Protocol Last Admin: 04/21/22 20:11 Dose: 850 units/hr, 17 mls/hr Documented by: CTR.RFUENT Titration: 04/21/22 18:29 Dose: 850 units/hr, 17 mls/hr Documented by: CTRSatyaRFUENT Titration: 04/21/22 05:37 Dose: 850 units/hr, 17 mls/hr Documented by: [email or web address] Titration: 04/21/22 00:55 Dose: 900 units/hr, 18 mls/hr Documented by: Admin: 04/20/22 15:33 Dose: 1,050 units/hr, 21 mls/hr Documented by: Titration: 04/20/22 15:33 Dose: 1,050 units/hr, 21 mls/hr Documented by: Titration: 04/20/22 05:45 Dose: 1,050 units/hr, 21 mls/hr Documented by: Admin: 04/19/22 17:16 Dose: 1,000 units/hr, 20 mls/hr Documented by: FLORA Lisinopril (Lisinopril 5 Mg Tablet) 5 mg PO DAILY [facility] Admin: 04/22/22 08:12 Dose: 5 mg Documented by: Admin: 04/21/22 09:00 Dose: 5 mg Documented by: Admin: 04/20/22 08:30 Dose: Not Given Documented by: Admin: 04/20/22 08:23 Dose: 5 mg Documented by: BRITTANEY Magnesium Hydroxide (Magnesium Hydroxide 30 Ml Udc) 30 ml PO DAILY PRN PRN Reason: Constipation Memantine (Memantine Hcl 5 Mg Tablet) 10 mg PO BID [facility] Admin: 04/22/22 12:25 Dose: 10 mg Documented by: Admin: 04/21/22 20:56 Dose: 10 mg Documented by: CTRSatyaRFUENT Admin: 04/21/22 09:00 Dose: 10 mg Documented by: Admin: 04/20/22 21:15 Dose: 10 mg Documented by: Admin: 04/20/22 08:30 Dose: Not Given Documented by: Admin: 04/20/22 08:21 Dose: 10 mg Documented by: BRITTANEY Methimazole (Methimazole 5 Mg Tablet) 5 mg PO DAILY [facility] Admin: 04/22/22 08:12 Dose: 5 mg Documented by: Admin: 04/21/22 09:54 Dose: 5 mg Documented by: Admin: 04/20/22 08:31 Dose: Not Given Documented by: Admin: 04/20/22 08:22 Dose: 5 mg Documented by: BRITTANEY Metoprolol Tartrate (Metoprolol Ir 25 Mg Tablet) 12.5 mg PO BID [facility] Last Admin: 04/22/22 08:14 Dose: 12.5 mg Documented by: Admin: 04/21/22 20:55 Dose: 12.5 mg Documented by: [email or web address] Pantoprazole Sodium (Pantoprazole Dr 40 Mg Tablet) 40 mg PO 0700 [facility] Quetiapine Fumarate (Quetiapine 25 Mg Tablet) 25 mg PO DAILY@1600 [facility] Tamsulosin HCl (Tamsulosin 0.4 Mg Capsule) 0.4 mg PO DAILY [facility] Last Admin: 04/22/22 08:12 Dose: 0.4 mg Documented by: PRAMOD Discontinued Medications Acetaminophen (Acetaminophen 325 Mg Tablet) 650 mg PO NOW ONE Stop: 04/20/22 15:17 Last Admin: 04/20/22 16:02 Dose: 650 mg Documented by: DIANNA Aspirin (Aspirin 81 Mg Chew Tab) 324 mg PO NOW ONE Stop: 04/19/22 16:36 Last Admin: 04/19/22 17:15 Dose: 324 mg Documented by: FLORA Aspirin (Aspirin 81 Mg Chew Tab) 324 mg PO NOW ONE Stop: 04/20/22 08:16 Last Admin: 04/20/22 08:18 Dose: 324 mg Documented by: BRITTANEY Atorvastatin Calcium (Atorvastatin 20 Mg Tablet) 80 mg PO NOW ONE Stop: 04/19/22 18:29 Last Admin: 04/19/22 18:38 Dose: 80 mg Documented by: ANN MARIE Atorvastatin Calcium (Atorvastatin 20 Mg Tablet) 80 mg PO DAILY [facility] Last Admin: 04/21/22 09:00 Dose: 80 mg Documented by: Admin: 04/20/22 21:15 Dose: 80 mg Documented by: DIANNA Citalopram Hydrobromide (Citalopram 10 Mg Tablet) 40 mg PO DAILY [facility] Divalproex Sodium (Divalproex Dr 250 Mg Tablet) 250 mg PO NOW ONE Stop: 04/20/22 18:57 Last Admin: 04/20/22 19:09 Dose: 250 mg Documented by: DIANNA Heparin Sodium (Porcine) (Heparin 5,000 Unit/Ml Vial) 5,000 unit IV NOW ONE Stop: 04/19/22 17:04 Last Admin: 04/19/22 17:16 Dose: 5,000 unit Documented by: FLORA Memantine (Memantine Hcl 5 Mg Tablet) 10 mg PO NOW ONE Stop: 04/19/22 21:04 Last Admin: 04/19/22 21:26 Dose: 10 mg Documented by: NATO Pantoprazole Sodium (Pantoprazole 40 Mg Vial) 40 mg IV DAILY [facility] Last Admin: 04/22/22 08:14 Dose: 40 mg Documented by: Admin: 04/21/22 09:00 Dose: 40 mg Documented by: Admin: 04/20/22 08:31 Dose: Not Given Documented by: Admin: 04/20/22 08:25 Dose: 40 mg Documented by: BRITTANEY Potassium Chloride (Potassium Chloride 20 Meq Tab) 40 meq PO NOW ONE Stop: 04/22/22 10:53 Last Admin: 04/22/22 12:24 Dose: 40 meq Documented by: JAZIEL Quetiapine Fumarate (Quetiapine 25 Mg Tablet) 25 mg PO NOW ONE Stop: 04/21/22 16:47 Last Admin: 04/21/22 17:24 Dose: 25 mg Documented by: JAZIEL Vital Signs Vital signs: Vital Signs - 8 hr 04/21/22 11:00 04/21/22 11:30 04/21/22 12:00 Pulse Rate 79 76 75 Respiratory Rate 24 19 19 Blood Pressure 132/72 Pulse Oximetry 95 96 94 04/21/22 12:30 04/21/22 13:00 04/21/22 13:30 Pulse Rate 71 72 75 Respiratory Rate 20 23 Blood Pressure Pulse Oximetry 98 93 94 MDM - Syncope <Luz Hernandez DO - Last Filed: 04/22/22 16:20> Lab Data Result diagrams: 04/22/22 05:08 04/22/22 05:08 Labs: Lab Results 04/19/22 04/19/22 04/19/22 Range/Units 13:34 13:35 13:35 WBC 16.2 H (4.5-11.0) X10^3/uL RBC 3.54 L (4.5-5.9) X10^6/uL Hgb 9.6 L (13.5-17.5) g/dL Hct 29.2 L (41-53) % MCV 82.5 (80-100) fL MCH 27.0 (26-34) PG MCHC 32.7 (30-36) % RDW 15.2 H (11.6-14.8) % Plt Count 456 H (150-400) X10^3/uL Neut % (Auto) 87.7 H (50-75) % Lymph % (Auto) 7.3 L (25-40) % [place] % (Auto) 3.9 (3-14) % Eos % (Auto) 0.7 L (2-4) % Baso % (Auto) 0.4 (0-2) % Neut # (Auto) 62526 H (7240-9077) /uL Lymph # (Auto) 1200 (2806-0163) /uL [place] # (Auto) 600 (0-900) /uL Eos # (Auto) 100 (0-450) /uL Baso # (Auto) 100 (0-100) /uL PT 14.7 H (10.1-12.7) SECONDS INR 1.3 (0.9-1.3) APTT 26 L (26.4-36.2) SECONDS Sodium (137-145) mmol/L Potassium (3.4-5.1) mmol/L Chloride (98-107) mmol/L Carbon Dioxide (22-32) mmol/L BUN (9-20) mg/dL Creatinine (0.66-1.25) mg/dL Estimated GFR (>60) mL/min BUN/Creatinine Ratio (6-22) Glucose (80-110) mg/dL Calcium (8.4-10.2) mg/dL Magnesium (1.6-2.3) mg/dL Total Bilirubin (0.2-1.3) mg/dL AST (17-59) IU/L ALT (<50) IU/L Alkaline Phosphatase (38-126) U/L Total Creatine Kinase (55-170) U/L CK-MB (CK-2) (<2.37) ng/mL CK-MB (CK-2) Rel Index (1.5-5.0) % Troponin I (0.01-0.034) ng/mL NT-Pro-B Natriuret Pep (<450) pg/mL Total Protein (6.3-8.2) g/dL Albumin (3.5-5.0) g/dL Globulin (1.7-4.1) g/dL Albumin/Globulin Ratio (1.0-2.8) Lipase (23-300) U/L Urine RBC (0-5/HPF) Urine WBC (0-5/HPF) Ur Squamous Epith Cells (0-5/HPF) Urine Bacteria (None) Ur Culture Indicated? SARS-CoV-2 (PCR) Negative (Negative) 04/19/22 04/19/22 04/19/22 Range/Units 13:35 13:46 15:35 WBC (4.5-11.0) X10^3/uL RBC (4.5-5.9) X10^6/uL Hgb (13.5-17.5) g/dL Hct (41-53) % MCV (80-100) fL MCH (26-34) PG MCHC (30-36) % RDW (11.6-14.8) % Plt Count (150-400) X10^3/uL Neut % (Auto) (50-75) % Lymph % (Auto) (25-40) % [place] % (Auto) (3-14) % Eos % (Auto) (2-4) % Baso % (Auto) (0-2) % Neut # (Auto) (5578-6688) /uL Lymph # (Auto) (0363-3284) /uL [place] # (Auto) (0-900) /uL Eos # (Auto) (0-450) /uL Baso # (Auto) (0-100) /uL PT (10.1-12.7) SECONDS INR (0.9-1.3) APTT (26.4-36.2) SECONDS Sodium 137 (137-145) mmol/L Potassium 3.7 (3.4-5.1) mmol/L Chloride 102 (98-107) mmol/L Carbon Dioxide 26 (22-32) mmol/L BUN 20 (9-20) mg/dL Creatinine 0.71 (0.66-1.25) mg/dL Estimated GFR > 60 (>60) mL/min BUN/Creatinine Ratio 28.2 H (6-22) Glucose 137 H (80-110) mg/dL Calcium 8.9 (8.4-10.2) mg/dL Magnesium 1.8 (1.6-2.3) mg/dL Total Bilirubin 0.3 (0.2-1.3) mg/dL AST 24 (17-59) IU/L ALT 14 (<50) IU/L Alkaline Phosphatase 66 (38-126) U/L Total Creatine Kinase 130 (55-170) U/L CK-MB (CK-2) 1.59 (<2.37) ng/mL CK-MB (CK-2) Rel Index 1.2 L (1.5-5.0) % Troponin I 0.042 H 0.480 H* (0.01-0.034) ng/mL NT-Pro-B Natriuret Pep 239 (<450) pg/mL Total Protein 7.7 (6.3-8.2) g/dL Albumin 4.1 (3.5-5.0) g/dL Globulin 3.6 (1.7-4.1) g/dL Albumin/Globulin Ratio 1.1 (1.0-2.8) Lipase 44 (23-300) U/L Urine RBC (0-5/HPF) Urine WBC (0-5/HPF) Ur Squamous Epith Cells (0-5/HPF) Urine Bacteria (None) Ur Culture Indicated? SARS-CoV-2 (PCR) (Negative) 04/19/22 04/19/22 04/19/22 Range/Units 17:50 18:48 22:47 WBC (4.5-11.0) X10^3/uL RBC (4.5-5.9) X10^6/uL Hgb (13.5-17.5) g/dL Hct (41-53) % MCV (80-100) fL MCH (26-34) PG MCHC (30-36) % RDW (11.6-14.8) % Plt Count (150-400) X10^3/uL Neut % (Auto) (50-75) % Lymph % (Auto) (25-40) % [place] % (Auto) (3-14) % Eos % (Auto) (2-4) % Baso % (Auto) (0-2) % Neut # (Auto) (6636-6696) /uL Lymph # (Auto) (5355-2225) /uL [place] # (Auto) (0-900) /uL Eos # (Auto) (0-450) /uL Baso # (Auto) (0-100) /uL PT (10.1-12.7) SECONDS INR (0.9-1.3) APTT Cancelled 60 H D (26.4-36.2) SECONDS Sodium (137-145) mmol/L Potassium (3.4-5.1) mmol/L Chloride (98-107) mmol/L Carbon Dioxide (22-32) mmol/L BUN (9-20) mg/dL Creatinine (0.66-1.25) mg/dL Estimated GFR (>60) mL/min BUN/Creatinine Ratio (6-22) Glucose (80-110) mg/dL Calcium (8.4-10.2) mg/dL Magnesium (1.6-2.3) mg/dL Total Bilirubin (0.2-1.3) mg/dL AST (17-59) IU/L ALT (<50) IU/L Alkaline Phosphatase (38-126) U/L Total Creatine Kinase (55-170) U/L CK-MB (CK-2) (<2.37) ng/mL CK-MB (CK-2) Rel Index (1.5-5.0) % Troponin I (0.01-0.034) ng/mL NT-Pro-B Natriuret Pep (<450) pg/mL Total Protein (6.3-8.2) g/dL Albumin (3.5-5.0) g/dL Globulin (1.7-4.1) g/dL Albumin/Globulin Ratio (1.0-2.8) Lipase (23-300) U/L Urine RBC None seen (0-5/HPF) Urine WBC None seen (0-5/HPF) Ur Squamous Epith Cells 0-1 /hpf (0-5/HPF) Urine Bacteria None seen (None) Ur Culture Indicated? Cult not indicated SARS-CoV-2 (PCR) (Negative) 04/19/22 04/20/22 04/20/22 Range/Units 22:47 05:07 05:07 WBC 11.4 H (4.5-11.0) X10^3/uL RBC 3.31 L (4.5-5.9) X10^6/uL Hgb 8.8 L (13.5-17.5) g/dL Hct 27.2 L (41-53) % MCV 82.3 (80-100) fL MCH 26.6 (26-34) PG MCHC 32.3 (30-36) % RDW 15.4 H (11.6-14.8) % Plt Count 403 H (150-400) X10^3/uL Neut % (Auto) 76.4 H (50-75) % Lymph % (Auto) 15.5 L (25-40) % [place] % (Auto) 6.2 (3-14) % Eos % (Auto) 1.3 L (2-4) % Baso % (Auto) 0.6 (0-2) % Neut # (Auto) 8700 H (6777-0188) /uL Lymph # (Auto) 1800 (8183-3756) /uL [place] # (Auto) 700 (0-900) /uL Eos # (Auto) 200 (0-450) /uL Baso # (Auto) 100 (0-100) /uL PT (10.1-12.7) SECONDS INR (0.9-1.3) APTT 48 H D (26.4-36.2) SECONDS Sodium (137-145) mmol/L Potassium (3.4-5.1) mmol/L Chloride (98-107) mmol/L Carbon Dioxide (22-32) mmol/L BUN (9-20) mg/dL Creatinine (0.66-1.25) mg/dL Estimated GFR (>60) mL/min BUN/Creatinine Ratio (6-22) Glucose (80-110) mg/dL Calcium (8.4-10.2) mg/dL Magnesium (1.6-2.3) mg/dL Total Bilirubin (0.2-1.3) mg/dL AST (17-59) IU/L ALT (<50) IU/L Alkaline Phosphatase (38-126) U/L Total Creatine Kinase 412 H D (55-170) U/L CK-MB (CK-2) 31.80 H D (<2.37) ng/mL CK-MB (CK-2) Rel Index 7.7 H* (1.5-5.0) % Troponin I 8.260 H* (0.01-0.034) ng/mL NT-Pro-B Natriuret Pep (<450) pg/mL Total Protein (6.3-8.2) g/dL Albumin (3.5-5.0) g/dL Globulin (1.7-4.1) g/dL Albumin/Globulin Ratio (1.0-2.8) Lipase (23-300) U/L Urine RBC (0-5/HPF) Urine WBC (0-5/HPF) Ur Squamous Epith Cells (0-5/HPF) Urine Bacteria (None) Ur Culture Indicated? SARS-CoV-2 (PCR) (Negative) 04/20/22 04/20/22 04/20/22 Range/Units 05:07 11:00 11:23 WBC (4.5-11.0) X10^3/uL RBC (4.5-5.9) X10^6/uL Hgb (13.5-17.5) g/dL Hct (41-53) % MCV (80-100) fL MCH (26-34) PG MCHC (30-36) % RDW (11.6-14.8) % Plt Count (150-400) X10^3/uL Neut % (Auto) (50-75) % Lymph % (Auto) (25-40) % [place] % (Auto) (3-14) % Eos % (Auto) (2-4) % Baso % (Auto) (0-2) % Neut # (Auto) (2719-3766) /uL Lymph # (Auto) (0073-8779) /uL [place] # (Auto) (0-900) /uL Eos # (Auto) (0-450) /uL Baso # (Auto) (0-100) /uL PT (10.1-12.7) SECONDS INR (0.9-1.3) APTT 54 H (26.4-36.2) SECONDS Sodium 138 (137-145) mmol/L Potassium 4.3 (3.4-5.1) mmol/L Chloride 106 (98-107) mmol/L Carbon Dioxide 27 (22-32) mmol/L BUN 13 (9-20) mg/dL Creatinine 0.57 L (0.66-1.25) mg/dL Estimated GFR > 60 (>60) mL/min BUN/Creatinine Ratio 22.8 H (6-22) Glucose 102 (80-110) mg/dL Calcium 8.5 (8.4-10.2) mg/dL Magnesium (1.6-2.3) mg/dL Total Bilirubin (0.2-1.3) mg/dL AST (17-59) IU/L ALT (<50) IU/L Alkaline Phosphatase (38-126) U/L Total Creatine Kinase 404 H (55-170) U/L CK-MB (CK-2) 29.00 H (<2.37) ng/mL CK-MB (CK-2) Rel Index 7.2 H* (1.5-5.0) % Troponin I 6.600 H* 4.110 H* (0.01-0.034) ng/mL NT-Pro-B Natriuret Pep (<450) pg/mL Total Protein (6.3-8.2) g/dL Albumin (3.5-5.0) g/dL Globulin (1.7-4.1) g/dL Albumin/Globulin Ratio (1.0-2.8) Lipase (23-300) U/L Urine RBC (0-5/HPF) Urine WBC (0-5/HPF) Ur Squamous Epith Cells (0-5/HPF) Urine Bacteria (None) Ur Culture Indicated? SARS-CoV-2 (PCR) (Negative) 04/20/22 04/20/22 04/20/22 Range/Units 17:15 17:15 23:15 WBC (4.5-11.0) X10^3/uL RBC (4.5-5.9) X10^6/uL Hgb (13.5-17.5) g/dL Hct (41-53) % MCV (80-100) fL MCH (26-34) PG MCHC (30-36) % RDW (11.6-14.8) % Plt Count (150-400) X10^3/uL Neut % (Auto) (50-75) % Lymph % (Auto) (25-40) % [place] % (Auto) (3-14) % Eos % (Auto) (2-4) % Baso % (Auto) (0-2) % Neut # (Auto) (1349-4883) /uL Lymph # (Auto) (2881-4081) /uL [place] # (Auto) (0-900) /uL Eos # (Auto) (0-450) /uL Baso # (Auto) (0-100) /uL PT (10.1-12.7) SECONDS INR (0.9-1.3) APTT 55 H 124 H* D (26.4-36.2) SECONDS Sodium (137-145) mmol/L Potassium (3.4-5.1) mmol/L Chloride (98-107) mmol/L Carbon Dioxide (22-32) mmol/L BUN (9-20) mg/dL Creatinine (0.66-1.25) mg/dL Estimated GFR (>60) mL/min BUN/Creatinine Ratio (6-22) Glucose (80-110) mg/dL Calcium (8.4-10.2) mg/dL Magnesium (1.6-2.3) mg/dL Total Bilirubin (0.2-1.3) mg/dL AST (17-59) IU/L ALT (<50) IU/L Alkaline Phosphatase (38-126) U/L Total Creatine Kinase (55-170) U/L CK-MB (CK-2) (<2.37) ng/mL CK-MB (CK-2) Rel Index (1.5-5.0) % Troponin I 3.000 H* (0.01-0.034) ng/mL NT-Pro-B Natriuret Pep (<450) pg/mL Total Protein (6.3-8.2) g/dL Albumin (3.5-5.0) g/dL Globulin (1.7-4.1) g/dL Albumin/Globulin Ratio (1.0-2.8) Lipase (23-300) U/L Urine RBC (0-5/HPF) Urine WBC (0-5/HPF) Ur Squamous Epith Cells (0-5/HPF) Urine Bacteria (None) Ur Culture Indicated? SARS-CoV-2 (PCR) (Negative) 04/20/22 04/21/22 04/21/22 Range/Units 23:15 05:12 05:12 WBC (4.5-11.0) X10^3/uL RBC (4.5-5.9) X10^6/uL Hgb (13.5-17.5) g/dL Hct (41-53) % MCV (80-100) fL MCH (26-34) PG MCHC (30-36) % RDW (11.6-14.8) % Plt Count (150-400) X10^3/uL Neut % (Auto) (50-75) % Lymph % (Auto) (25-40) % [place] % (Auto) (3-14) % Eos % (Auto) (2-4) % Baso % (Auto) (0-2) % Neut # (Auto) (8715-0138) /uL Lymph # (Auto) (2799-5898) /uL [place] # (Auto) (0-900) /uL Eos # (Auto) (0-450) /uL Baso # (Auto) (0-100) /uL PT (10.1-12.7) SECONDS INR (0.9-1.3) APTT 77 H* D (26.4-36.2) SECONDS Sodium (137-145) mmol/L Potassium (3.4-5.1) mmol/L Chloride (98-107) mmol/L Carbon Dioxide (22-32) mmol/L BUN (9-20) mg/dL Creatinine (0.66-1.25) mg/dL Estimated GFR (>60) mL/min BUN/Creatinine Ratio (6-22) Glucose (80-110) mg/dL Calcium (8.4-10.2) mg/dL Magnesium (1.6-2.3) mg/dL Total Bilirubin (0.2-1.3) mg/dL AST (17-59) IU/L ALT (<50) IU/L Alkaline Phosphatase (38-126) U/L Total Creatine Kinase (55-170) U/L CK-MB (CK-2) (<2.37) ng/mL CK-MB (CK-2) Rel Index (1.5-5.0) % Troponin I 2.600 H* 2.150 H* (0.01-0.034) ng/mL NT-Pro-B Natriuret Pep (<450) pg/mL Total Protein (6.3-8.2) g/dL Albumin (3.5-5.0) g/dL Globulin (1.7-4.1) g/dL Albumin/Globulin Ratio (1.0-2.8) Lipase (23-300) U/L Urine RBC (0-5/HPF) Urine WBC (0-5/HPF) Ur Squamous Epith Cells (0-5/HPF) Urine Bacteria (None) Ur Culture Indicated? SARS-CoV-2 (PCR) (Negative) 04/21/22 04/21/22 Range/Units 11:20 11:20 WBC (4.5-11.0) X10^3/uL RBC (4.5-5.9) X10^6/uL Hgb (13.5-17.5) g/dL Hct (41-53) % MCV (80-100) fL MCH (26-34) PG MCHC (30-36) % RDW (11.6-14.8) % Plt Count (150-400) X10^3/uL Neut % (Auto) (50-75) % Lymph % (Auto) (25-40) % [place] % (Auto) (3-14) % Eos % (Auto) (2-4) % Baso % (Auto) (0-2) % Neut # (Auto) (7221-3636) /uL Lymph # (Auto) (8903-0964) /uL [place] # (Auto) (0-900) /uL Eos # (Auto) (0-450) /uL Baso # (Auto) (0-100) /uL PT (10.1-12.7) SECONDS INR (0.9-1.3) APTT 67 H (26.4-36.2) SECONDS Sodium (137-145) mmol/L Potassium (3.4-5.1) mmol/L Chloride (98-107) mmol/L Carbon Dioxide (22-32) mmol/L BUN (9-20) mg/dL Creatinine (0.66-1.25) mg/dL Estimated GFR (>60) mL/min BUN/Creatinine Ratio (6-22) Glucose (80-110) mg/dL Calcium (8.4-10.2) mg/dL Magnesium (1.6-2.3) mg/dL Total Bilirubin (0.2-1.3) mg/dL AST (17-59) IU/L ALT (<50) IU/L Alkaline Phosphatase (38-126) U/L Total Creatine Kinase (55-170) U/L CK-MB (CK-2) (<2.37) ng/mL CK-MB (CK-2) Rel Index (1.5-5.0) % Troponin I 1.630 H* (0.01-0.034) ng/mL NT-Pro-B Natriuret Pep (<450) pg/mL Total Protein (6.3-8.2) g/dL Albumin (3.5-5.0) g/dL Globulin (1.7-4.1) g/dL Albumin/Globulin Ratio (1.0-2.8) Lipase (23-300) U/L Urine RBC (0-5/HPF) Urine WBC (0-5/HPF) Ur Squamous Epith Cells (0-5/HPF) Urine Bacteria (None) Ur Culture Indicated? SARS-CoV-2 (PCR) (Negative) Urine Dip Bedside Urine Glucose Negative Bedside Urine Bilirubin - Negative Bedside Urine Ketone +++ 80 Urine Specific [place] 1.020 Bedside Urine Occult Blood - Negative Bedside Urine pH 6 Bedside Urine Protein +/- 15 Bedside Urine Urobilinogen - Negative Bedside Urine Nitrite - Negative Bedside Urine Leukocytes - Negative Esterase Imaging Data CT scan - head: Radiologist's Impression: Close Head CT (Signed) Charity Leroy - 04/19/22 Chest X-Ray (Signed) Mellisa Francois - 04/19/22 DI Result CC 03/15/22 Abdomen X-Ray (Signed) Norman Rao - 11/11/21 Chest X-Ray (Signed) Myra Abarca - 10/16/21 DI Result CC 07/18/21 KUB X-Ray (Signed) Mellisa Francois - 11/15/20 Scrotum Ultrasound (Signed) Marla Nichols - 11/10/20 Thyroid Ultrasound (Signed) Earnest Bullard - 06/28/[address] (Signed) Earnest Bullard - 02/18/19 Brain MRI (Signed) Myra Abarca - 01/30/19 Cervical Spine MRI (Signed) Myra Abarca - 01/22/19 Cervical Spine X-Ray (Signed) Cyndi Jean Baptiste - 11/04/18 Knee X-Ray (Signed) Marla Nichols - 09/24/18 Knee MRI (Signed) Myra Abarca - 08/28/18 Outside EKG 08/07/18 Radiology - Historical 03/23/17 Launch?[place] [address] CT Scan Report Signed Patient: Aamir Wilkinson MR#: [id number] : 1945 Acct:[id number] Age/Sex: 76 / M Date of Service: 04/19/22 Loc: ED Accession Number: [id number] ?? Procedure: CT head/brain wo con Ordering Provider: Luz Hernandez D.O. PROCEDURE:? CT HEAD/BRAIN WO CON ? INDICATIONS:? fall, dementia ? TECHNIQUE:? Noncontrast 4.5 mm thick angled axial sections acquired from the foramen magnum to the vertex, with coronal and sagittal reformats.? For radiation dose reduction, the following was used:? automated exposure control, adjustment of mA and/or kV according to patient size.? ? COMPARISON:? [facility], MR, MR BRAIN WITHOUT CONTRAST, 03/15/2022, 17:05.? MR, MR HEAD/BRAIN WO CON, 01/30/2019, 12:40. ? FINDINGS:? Image quality:? Excellent.? ? CSF spaces:? Basal cisterns are patent.? No extra-axial fluid collections.? The ventricles are symmetric in size and shape.? ? Brain:? No intracranial bleeds or masses.? Small chronic left parietal infarct stable compared to March 15, 2022.? There is cerebral volume loss for age, with resultant ventricular and sulcal prominence.? There are periventricular and deep white matter chronic small vessel ischemic changes.? There is intracranial internal carotid artery atherosclerosis.? ? Skull and face:? Calvarium and visualized facial bones appear intact, without suspicious lesions.? ? Sinuses:? Visualized sinuses and mastoids are clear.? ? IMPRESSION:? No acute intracranial disease process. ? ? Dictated by: Charity Leroy MD, PhD on 04/19/2022 at 13:50 ? ? Approved by: Charity Leroy MD, PhD on 04/19/2022 at 13:54? Chest x-ray: Radiologist's Impression: [address] [address] XRay Report Signed Patient: Aamir Wilkinson MR#: [id number] : 1945 Acct:[id number] Age/Sex: 76 / M Date of Service: 04/19/22 Loc: ED Accession Number: [id number] ?? Procedure: XR chest 1V Ordering Provider: Luz Hernandez D.O. PROCEDURE:? XR CHEST 1V ? INDICATIONS:? chest pain ? TECHNIQUE:? One view of the chest was acquired.? ? COMPARISON:? [facility], CR, XR CHEST 1V, 10/16/2021, 13:51. ? FINDINGS:? ? Surgical changes and devices:? None.? ? Lungs and pleura:? Lungs are clear.? No pleural effusions or pneumothorax.? ? Mediastinum:? Mediastinal contours appear normal.? Heart size is mildly enlarged. ? Bones and chest wall:? No suspicious bony lesions.? Overlying soft tissues appear unremarkable.? ? IMPRESSION:? No acute pulmonary process. ? ? Dictated by: Mellisa Francois M.D. on 04/19/2022 at 13:50 ? ? Approved by: Mellisa Francois M.D. on 04/19/2022 at 13:51?? ECG Data Attestation: I personally reviewed and interpreted this ECG as follows: Interpretation: Sinus rhythm rate of 72 ND 156 QRS of 154 QTC of 508. Patient has left bundle-branch block. No priors for comparison. Patient has repeat EKG with left axis deviation, left bundle branch block. Rate of 75 ND 148 QRS of 158 QTC 531. Patient has possible change in 2 3 AVF but difficult to tell with prior left bundle-branch block. No priors for comparison. MDM Narrative Medical decision making narrative: This is a 76-year-old male who comes emergency department with a ground level fall described as mechanical. Patient had near syncopal episode he did have some tachycardia, he has a new left bundle branch block heart rate was up to 130 on tele not captured on EKG. Patient's troponin was indeterminate, repeat troponin is positive. Patient does not have any epigastric pain at this time. Patient was started on aspirin, heparin and cardiology consultation. Statin was initiated as well. Patient does not have any major changes to renal function electrolytes, hemoglobin is 9.6 today he does have a white count of 16. BNP is normal. Is negative with a negative chest x-ray. Patient is alert appropriate to clear his C-spine clinically. Cardiology recommends transfer if family is interested/willing for cardiac catheterization as he has known coronary artery disease with prior stents. Discussed goals of care with patient's who is his decision maker, he is DNR/DNI but they are open to cardiac catheterization/intervention at this time. Patient signed out to Dr. Kwon while seeking placement. Multiple facilities have been contacted with no bed availability yet. Dr kwon: Received turned over. Review patient's history and physical exam. I did introduce myself to the patient and his . Patient is currently on a heparin drip. Trending his troponins does show a significant increase initially and then a peek at 8 and now he decreased. Patient has been stable overnight. No abnormalities noted on cardiac monitoring. Still no bed availability. Care turned over to Dr. Hernandez to continue to observe and disposition. Dr. Hernandez (04/20/22): Patient signed back out to myself on recheck patient is mildly confused consistent with his baseline dementia and yesterday. His troponins significantly increased 8 but have not started decreased to 6. Described as stable overnight. Patient denies any chest pain or pressure. No active shortness of breath. Patient did have a headache throughout the day and was given a dose of Tylenol. Troponin continues to trend down to 3 on most recent check. No acute EKG changes. Patient home medications were also initiated. Patient signed out to Dr. Kwon while continuing to search for bed placement. [facility] regional hotline is continuing to assist in finding placement. No beds are currently available. <Sunil Kwon, DO - Last Filed: 04/21/22 18:39> Lab Data Labs: Lab Results 04/19/22 04/19/22 04/19/22 Range/Units 13:34 13:35 13:35 WBC 16.2 H (4.5-11.0) X10^3/uL RBC 3.54 L (4.5-5.9) X10^6/uL Hgb 9.6 L (13.5-17.5) g/dL Hct 29.2 L (41-53) % MCV 82.5 (80-100) fL MCH 27.0 (26-34) PG MCHC 32.7 (30-36) % RDW 15.2 H (11.6-14.8) % Plt Count 456 H (150-400) X10^3/uL Neut % (Auto) 87.7 H (50-75) % Lymph % (Auto) 7.3 L (25-40) % [place] % (Auto) 3.9 (3-14) % Eos % (Auto) 0.7 L (2-4) % Baso % (Auto) 0.4 (0-2) % Neut # (Auto) 26589 H (2653-2260) /uL Lymph # (Auto) 1200 (4370-2962) /uL [place] # (Auto) 600 (0-900) /uL Eos # (Auto) 100 (0-450) /uL Baso # (Auto) 100 (0-100) /uL PT 14.7 H (10.1-12.7) SECONDS INR 1.3 (0.9-1.3) APTT 26 L (26.4-36.2) SECONDS Sodium (137-145) mmol/L Potassium (3.4-5.1) mmol/L Chloride (98-107) mmol/L Carbon Dioxide (22-32) mmol/L BUN (9-20) mg/dL Creatinine (0.66-1.25) mg/dL Estimated GFR (>60) mL/min BUN/Creatinine Ratio (6-22) Glucose (80-110) mg/dL Calcium (8.4-10.2) mg/dL Magnesium (1.6-2.3) mg/dL Total Bilirubin (0.2-1.3) mg/dL AST (17-59) IU/L ALT (<50) IU/L Alkaline Phosphatase (38-126) U/L Total Creatine Kinase (55-170) U/L CK-MB (CK-2) (<2.37) ng/mL CK-MB (CK-2) Rel Index (1.5-5.0) % Troponin I (0.01-0.034) ng/mL NT-Pro-B Natriuret Pep (<450) pg/mL Total Protein (6.3-8.2) g/dL Albumin (3.5-5.0) g/dL Globulin (1.7-4.1) g/dL Albumin/Globulin Ratio (1.0-2.8) Lipase (23-300) U/L Urine RBC (0-5/HPF) Urine WBC (0-5/HPF) Ur Squamous Epith Cells (0-5/HPF) Urine Bacteria (None) Ur Culture Indicated? SARS-CoV-2 (PCR) Negative (Negative) 04/19/22 04/19/22 04/19/22 Range/Units 13:35 13:46 15:35 WBC (4.5-11.0) X10^3/uL RBC (4.5-5.9) X10^6/uL Hgb (13.5-17.5) g/dL Hct (41-53) % MCV (80-100) fL MCH (26-34) PG MCHC (30-36) % RDW (11.6-14.8) % Plt Count (150-400) X10^3/uL Neut % (Auto) (50-75) % Lymph % (Auto) (25-40) % [place] % (Auto) (3-14) % Eos % (Auto) (2-4) % Baso % (Auto) (0-2) % Neut # (Auto) (7890-4692) /uL Lymph # (Auto) (8241-5143) /uL [place] # (Auto) (0-900) /uL Eos # (Auto) (0-450) /uL Baso # (Auto) (0-100) /uL PT (10.1-12.7) SECONDS INR (0.9-1.3) APTT (26.4-36.2) SECONDS Sodium 137 (137-145) mmol/L Potassium 3.7 (3.4-5.1) mmol/L Chloride 102 (98-107) mmol/L Carbon Dioxide 26 (22-32) mmol/L BUN 20 (9-20) mg/dL Creatinine 0.71 (0.66-1.25) mg/dL Estimated GFR > 60 (>60) mL/min BUN/Creatinine Ratio 28.2 H (6-22) Glucose 137 H (80-110) mg/dL Calcium 8.9 (8.4-10.2) mg/dL Magnesium 1.8 (1.6-2.3) mg/dL Total Bilirubin 0.3 (0.2-1.3) mg/dL AST 24 (17-59) IU/L ALT 14 (<50) IU/L Alkaline Phosphatase 66 (38-126) U/L Total Creatine Kinase 130 (55-170) U/L CK-MB (CK-2) 1.59 (<2.37) ng/mL CK-MB (CK-2) Rel Index 1.2 L (1.5-5.0) % Troponin I 0.042 H 0.480 H* (0.01-0.034) ng/mL NT-Pro-B Natriuret Pep 239 (<450) pg/mL Total Protein 7.7 (6.3-8.2) g/dL Albumin 4.1 (3.5-5.0) g/dL Globulin 3.6 (1.7-4.1) g/dL Albumin/Globulin Ratio 1.1 (1.0-2.8) Lipase 44 (23-300) U/L Urine RBC (0-5/HPF) Urine WBC (0-5/HPF) Ur Squamous Epith Cells (0-5/HPF) Urine Bacteria (None) Ur Culture Indicated? SARS-CoV-2 (PCR) (Negative) 04/19/22 04/19/22 04/19/22 Range/Units 17:50 18:48 22:47 WBC (4.5-11.0) X10^3/uL RBC (4.5-5.9) X10^6/uL Hgb (13.5-17.5) g/dL Hct (41-53) % MCV (80-100) fL MCH (26-34) PG MCHC (30-36) % RDW (11.6-14.8) % Plt Count (150-400) X10^3/uL Neut % (Auto) (50-75) % Lymph % (Auto) (25-40) % [place] % (Auto) (3-14) % Eos % (Auto) (2-4) % Baso % (Auto) (0-2) % Neut # (Auto) (9163-4007) /uL Lymph # (Auto) (7921-5696) /uL [place] # (Auto) (0-900) /uL Eos # (Auto) (0-450) /uL Baso # (Auto) (0-100) /uL PT (10.1-12.7) SECONDS INR (0.9-1.3) APTT Cancelled 60 H D (26.4-36.2) SECONDS Sodium (137-145) mmol/L Potassium (3.4-5.1) mmol/L Chloride (98-107) mmol/L Carbon Dioxide (22-32) mmol/L BUN (9-20) mg/dL Creatinine (0.66-1.25) mg/dL Estimated GFR (>60) mL/min BUN/Creatinine Ratio (6-22) Glucose (80-110) mg/dL Calcium (8.4-10.2) mg/dL Magnesium (1.6-2.3) mg/dL Total Bilirubin (0.2-1.3) mg/dL AST (17-59) IU/L ALT (<50) IU/L Alkaline Phosphatase (38-126) U/L Total Creatine Kinase (55-170) U/L CK-MB (CK-2) (<2.37) ng/mL CK-MB (CK-2) Rel Index (1.5-5.0) % Troponin I (0.01-0.034) ng/mL NT-Pro-B Natriuret Pep (<450) pg/mL Total Protein (6.3-8.2) g/dL Albumin (3.5-5.0) g/dL Globulin (1.7-4.1) g/dL Albumin/Globulin Ratio (1.0-2.8) Lipase (23-300) U/L Urine RBC None seen (0-5/HPF) Urine WBC None seen (0-5/HPF) Ur Squamous Epith Cells 0-1 /hpf (0-5/HPF) Urine Bacteria None seen (None) Ur Culture Indicated? Cult not indicated SARS-CoV-2 (PCR) (Negative) 04/19/22 04/20/22 04/20/22 Range/Units 22:47 05:07 05:07 WBC 11.4 H (4.5-11.0) X10^3/uL RBC 3.31 L (4.5-5.9) X10^6/uL Hgb 8.8 L (13.5-17.5) g/dL Hct 27.2 L (41-53) % MCV 82.3 (80-100) fL MCH 26.6 (26-34) PG MCHC 32.3 (30-36) % RDW 15.4 H (11.6-14.8) % Plt Count 403 H (150-400) X10^3/uL Neut % (Auto) 76.4 H (50-75) % Lymph % (Auto) 15.5 L (25-40) % [place] % (Auto) 6.2 (3-14) % Eos % (Auto) 1.3 L (2-4) % Baso % (Auto) 0.6 (0-2) % Neut # (Auto) 8700 H (3016-2649) /uL Lymph # (Auto) 1800 (4190-1955) /uL [place] # (Auto) 700 (0-900) /uL Eos # (Auto) 200 (0-450) /uL Baso # (Auto) 100 (0-100) /uL PT (10.1-12.7) SECONDS INR (0.9-1.3) APTT 48 H D (26.4-36.2) SECONDS Sodium (137-145) mmol/L Potassium (3.4-5.1) mmol/L Chloride (98-107) mmol/L Carbon Dioxide (22-32) mmol/L BUN (9-20) mg/dL Creatinine (0.66-1.25) mg/dL Estimated GFR (>60) mL/min BUN/Creatinine Ratio (6-22) Glucose (80-110) mg/dL Calcium (8.4-10.2) mg/dL Magnesium (1.6-2.3) mg/dL Total Bilirubin (0.2-1.3) mg/dL AST (17-59) IU/L ALT (<50) IU/L Alkaline Phosphatase (38-126) U/L Total Creatine Kinase 412 H D (55-170) U/L CK-MB (CK-2) 31.80 H D (<2.37) ng/mL CK-MB (CK-2) Rel Index 7.7 H* (1.5-5.0) % Troponin I 8.260 H* (0.01-0.034) ng/mL NT-Pro-B Natriuret Pep (<450) pg/mL Total Protein (6.3-8.2) g/dL Albumin (3.5-5.0) g/dL Globulin (1.7-4.1) g/dL Albumin/Globulin Ratio (1.0-2.8) Lipase (23-300) U/L Urine RBC (0-5/HPF) Urine WBC (0-5/HPF) Ur Squamous Epith Cells (0-5/HPF) Urine Bacteria (None) Ur Culture Indicated? SARS-CoV-2 (PCR) (Negative) 04/20/22 04/20/22 04/20/22 Range/Units 05:07 11:00 11:23 WBC (4.5-11.0) X10^3/uL RBC (4.5-5.9) X10^6/uL Hgb (13.5-17.5) g/dL Hct (41-53) % MCV (80-100) fL MCH (26-34) PG MCHC (30-36) % RDW (11.6-14.8) % Plt Count (150-400) X10^3/uL Neut % (Auto) (50-75) % Lymph % (Auto) (25-40) % [place] % (Auto) (3-14) % Eos % (Auto) (2-4) % Baso % (Auto) (0-2) % Neut # (Auto) (4399-8340) /uL Lymph # (Auto) (2741-5003) /uL [place] # (Auto) (0-900) /uL Eos # (Auto) (0-450) /uL Baso # (Auto) (0-100) /uL PT (10.1-12.7) SECONDS INR (0.9-1.3) APTT 54 H (26.4-36.2) SECONDS Sodium 138 (137-145) mmol/L Potassium 4.3 (3.4-5.1) mmol/L Chloride 106 (98-107) mmol/L Carbon Dioxide 27 (22-32) mmol/L BUN 13 (9-20) mg/dL Creatinine 0.57 L (0.66-1.25) mg/dL Estimated GFR > 60 (>60) mL/min BUN/Creatinine Ratio 22.8 H (6-22) Glucose 102 (80-110) mg/dL Calcium 8.5 (8.4-10.2) mg/dL Magnesium (1.6-2.3) mg/dL Total Bilirubin (0.2-1.3) mg/dL AST (17-59) IU/L ALT (<50) IU/L Alkaline Phosphatase (38-126) U/L Total Creatine Kinase 404 H (55-170) U/L CK-MB (CK-2) 29.00 H (<2.37) ng/mL CK-MB (CK-2) Rel Index 7.2 H* (1.5-5.0) % Troponin I 6.600 H* 4.110 H* (0.01-0.034) ng/mL NT-Pro-B Natriuret Pep (<450) pg/mL Total Protein (6.3-8.2) g/dL Albumin (3.5-5.0) g/dL Globulin (1.7-4.1) g/dL Albumin/Globulin Ratio (1.0-2.8) Lipase (23-300) U/L Urine RBC (0-5/HPF) Urine WBC (0-5/HPF) Ur Squamous Epith Cells (0-5/HPF) Urine Bacteria (None) Ur Culture Indicated? SARS-CoV-2 (PCR) (Negative) 04/20/22 04/20/22 04/20/22 Range/Units 17:15 17:15 23:15 WBC (4.5-11.0) X10^3/uL RBC (4.5-5.9) X10^6/uL Hgb (13.5-17.5) g/dL Hct (41-53) % MCV (80-100) fL MCH (26-34) PG MCHC (30-36) % RDW (11.6-14.8) % Plt Count (150-400) X10^3/uL Neut % (Auto) (50-75) % Lymph % (Auto) (25-40) % [place] % (Auto) (3-14) % Eos % (Auto) (2-4) % Baso % (Auto) (0-2) % Neut # (Auto) (9589-4902) /uL Lymph # (Auto) (9575-9188) /uL [place] # (Auto) (0-900) /uL Eos # (Auto) (0-450) /uL Baso # (Auto) (0-100) /uL PT (10.1-12.7) SECONDS INR (0.9-1.3) APTT 55 H 124 H* D (26.4-36.2) SECONDS Sodium (137-145) mmol/L Potassium (3.4-5.1) mmol/L Chloride (98-107) mmol/L Carbon Dioxide (22-32) mmol/L BUN (9-20) mg/dL Creatinine (0.66-1.25) mg/dL Estimated GFR (>60) mL/min BUN/Creatinine Ratio (6-22) Glucose (80-110) mg/dL Calcium (8.4-10.2) mg/dL Magnesium (1.6-2.3) mg/dL Total Bilirubin (0.2-1.3) mg/dL AST (17-59) IU/L ALT (<50) IU/L Alkaline Phosphatase (38-126) U/L Total Creatine Kinase (55-170) U/L CK-MB (CK-2) (<2.37) ng/mL CK-MB (CK-2) Rel Index (1.5-5.0) % Troponin I 3.000 H* (0.01-0.034) ng/mL NT-Pro-B Natriuret Pep (<450) pg/mL Total Protein (6.3-8.2) g/dL Albumin (3.5-5.0) g/dL Globulin (1.7-4.1) g/dL Albumin/Globulin Ratio (1.0-2.8) Lipase (23-300) U/L Urine RBC (0-5/HPF) Urine WBC (0-5/HPF) Ur Squamous Epith Cells (0-5/HPF) Urine Bacteria (None) Ur Culture Indicated? SARS-CoV-2 (PCR) (Negative) 04/20/22 04/21/22 04/21/22 Range/Units 23:15 05:12 05:12 WBC (4.5-11.0) X10^3/uL RBC (4.5-5.9) X10^6/uL Hgb (13.5-17.5) g/dL Hct (41-53) % MCV (80-100) fL MCH (26-34) PG MCHC (30-36) % RDW (11.6-14.8) % Plt Count (150-400) X10^3/uL Neut % (Auto) (50-75) % Lymph % (Auto) (25-40) % [place] % (Auto) (3-14) % Eos % (Auto) (2-4) % Baso % (Auto) (0-2) % Neut # (Auto) (9150-1049) /uL Lymph # (Auto) (1174-0827) /uL [place] # (Auto) (0-900) /uL Eos # (Auto) (0-450) /uL Baso # (Auto) (0-100) /uL PT (10.1-12.7) SECONDS INR (0.9-1.3) APTT 77 H* D (26.4-36.2) SECONDS Sodium (137-145) mmol/L Potassium (3.4-5.1) mmol/L Chloride (98-107) mmol/L Carbon Dioxide (22-32) mmol/L BUN (9-20) mg/dL Creatinine (0.66-1.25) mg/dL Estimated GFR (>60) mL/min BUN/Creatinine Ratio (6-22) Glucose (80-110) mg/dL Calcium (8.4-10.2) mg/dL Magnesium (1.6-2.3) mg/dL Total Bilirubin (0.2-1.3) mg/dL AST (17-59) IU/L ALT (<50) IU/L Alkaline Phosphatase (38-126) U/L Total Creatine Kinase (55-170) U/L CK-MB (CK-2) (<2.37) ng/mL CK-MB (CK-2) Rel Index (1.5-5.0) % Troponin I 2.600 H* 2.150 H* (0.01-0.034) ng/mL NT-Pro-B Natriuret Pep (<450) pg/mL Total Protein (6.3-8.2) g/dL Albumin (3.5-5.0) g/dL Globulin (1.7-4.1) g/dL Albumin/Globulin Ratio (1.0-2.8) Lipase (23-300) U/L Urine RBC (0-5/HPF) Urine WBC (0-5/HPF) Ur Squamous Epith Cells (0-5/HPF) Urine Bacteria (None) Ur Culture Indicated? SARS-CoV-2 (PCR) (Negative) 04/21/22 04/21/22 Range/Units 11:20 11:20 WBC (4.5-11.0) X10^3/uL RBC (4.5-5.9) X10^6/uL Hgb (13.5-17.5) g/dL Hct (41-53) % MCV (80-100) fL MCH (26-34) PG MCHC (30-36) % RDW (11.6-14.8) % Plt Count (150-400) X10^3/uL Neut % (Auto) (50-75) % Lymph % (Auto) (25-40) % [place] % (Auto) (3-14) % Eos % (Auto) (2-4) % Baso % (Auto) (0-2) % Neut # (Auto) (4368-7690) /uL Lymph # (Auto) (7075-8360) /uL [place] # (Auto) (0-900) /uL Eos # (Auto) (0-450) /uL Baso # (Auto) (0-100) /uL PT (10.1-12.7) SECONDS INR (0.9-1.3) APTT 67 H (26.4-36.2) SECONDS Sodium (137-145) mmol/L Potassium (3.4-5.1) mmol/L Chloride (98-107) mmol/L Carbon Dioxide (22-32) mmol/L BUN (9-20) mg/dL Creatinine (0.66-1.25) mg/dL Estimated GFR (>60) mL/min BUN/Creatinine Ratio (6-22) Glucose (80-110) mg/dL Calcium (8.4-10.2) mg/dL Magnesium (1.6-2.3) mg/dL Total Bilirubin (0.2-1.3) mg/dL AST (17-59) IU/L ALT (<50) IU/L Alkaline Phosphatase (38-126) U/L Total Creatine Kinase (55-170) U/L CK-MB (CK-2) (<2.37) ng/mL CK-MB (CK-2) Rel Index (1.5-5.0) % Troponin I 1.630 H* (0.01-0.034) ng/mL NT-Pro-B Natriuret Pep (<450) pg/mL Total Protein (6.3-8.2) g/dL Albumin (3.5-5.0) g/dL Globulin (1.7-4.1) g/dL Albumin/Globulin Ratio (1.0-2.8) Lipase (23-300) U/L Urine RBC (0-5/HPF) Urine WBC (0-5/HPF) Ur Squamous Epith Cells (0-5/HPF) Urine Bacteria (None) Ur Culture Indicated? SARS-CoV-2 (PCR) (Negative) Urine Dip Bedside Urine Glucose Negative Bedside Urine Bilirubin - Negative Bedside Urine Ketone +++ 80 Urine Specific [place] 1.020 Bedside Urine Occult Blood - Negative Bedside Urine pH 6 Bedside Urine Protein +/- 15 Bedside Urine Urobilinogen - Negative Bedside Urine Nitrite - Negative Bedside Urine Leukocytes - Negative Esterase ECG Data Interpretation: Sinus rhythm rate of 72 ND 156 QRS of 154 QTC of 508. Patient has left bundle-branch block. No priors for comparison. Patient has repeat EKG with left axis deviation, left bundle branch block. Rate of 75 ND 148 QRS of 158 QTC 531. Patient has possible change in 2 3 AVF but difficult to tell with prior left bundle-branch block. No priors for comparison. Repeat ECG 04/20/22 @ 2359: Sinus rhythm Regular rate of 69 Left axis deviation Left bundle branch block Unchanged from prior EKGs. [facility] Narrative Medical decision making narrative: This is a 76-year-old male who comes emergency department with a ground level fall described as mechanical. Patient had near syncopal episode he did have some tachycardia, he has a new left bundle branch block heart rate was up to 130 on tele not captured on EKG. Patient's troponin was indeterminate, repeat troponin is positive. Patient does not have any epigastric pain at this time. Patient was started on aspirin, heparin and cardiology consultation. Statin was initiated as well. Patient does not have any major changes to renal function electrolytes, hemoglobin is 9.6 today he does have a white count of 16. BNP is normal. Is negative with a negative chest x-ray. Patient is alert appropriate to clear his C-spine clinically. Cardiology recommends transfer if family is interested/willing for cardiac catheterization as he has known coronary artery disease with prior stents. Discussed goals of care with patient's who is his decision maker, he is DNR/DNI but they are open to cardiac catheterization/intervention at this time. Patient signed out to Dr. Kwon while seeking placement. Multiple facilities have been contacted with no bed availability yet. Dr kwon: Received turned over. Review patient's history and physical exam. I did introduce myself to the patient and his . Patient is currently on a heparin drip. Trending his troponins does show a significant increase initially and then a peek at 8 and now he decreased. Patient has been stable overnight. No abnormalities noted on cardiac monitoring. Still no bed availability. Care turned over to Dr. Hernandez to continue to observe and disposition. Dr. Hernandez (04/20/22): Patient signed back out to myself on recheck patient is mildly confused consistent with his baseline dementia and yesterday. His troponins significantly increased 8 but have not started decreased to 6. Described as stable overnight. Patient denies any chest pain or pressure. No active shortness of breath. Patient did have a headache throughout the day and was given a dose of Tylenol. Troponin continues to trend down to 3 on most recent check. No acute EKG changes. Patient home medications were also initiated. Patient signed out to Dr. Kwon while continuing to search for bed placement. [facility] regional hotline is continuing to assist in finding placement. No beds are currently available. Dr kwon 04/20-04/21: Received turned over and reviewed the events of the past shift. Patient continues to have a declining troponin. Had a repeat EKG that is unchanged. Care turned over to Dr. Maldonado to continue to evaluate and disposition. <Jarrell Maldonado MD - Last Filed: 04/21/22 13:40> Lab Data Labs: Lab Results 04/19/22 04/19/22 04/19/22 Range/Units 13:34 13:35 13:35 WBC 16.2 H (4.5-11.0) X10^3/uL RBC 3.54 L (4.5-5.9) X10^6/uL Hgb 9.6 L (13.5-17.5) g/dL Hct 29.2 L (41-53) % MCV 82.5 (80-100) fL MCH 27.0 (26-34) PG MCHC 32.7 (30-36) % RDW 15.2 H (11.6-14.8) % Plt Count 456 H (150-400) X10^3/uL Neut % (Auto) 87.7 H (50-75) % Lymph % (Auto) 7.3 L (25-40) % [place] % (Auto) 3.9 (3-14) % Eos % (Auto) 0.7 L (2-4) % Baso % (Auto) 0.4 (0-2) % Neut # (Auto) 25731 H (4287-7359) /uL Lymph # (Auto) 1200 (9750-8572) /uL [place] # (Auto) 600 (0-900) /uL Eos # (Auto) 100 (0-450) /uL Baso # (Auto) 100 (0-100) /uL PT 14.7 H (10.1-12.7) SECONDS INR 1.3 (0.9-1.3) APTT 26 L (26.4-36.2) SECONDS Sodium (137-145) mmol/L Potassium (3.4-5.1) mmol/L Chloride (98-107) mmol/L Carbon Dioxide (22-32) mmol/L BUN (9-20) mg/dL Creatinine (0.66-1.25) mg/dL Estimated GFR (>60) mL/min BUN/Creatinine Ratio (6-22) Glucose (80-110) mg/dL Calcium (8.4-10.2) mg/dL Magnesium (1.6-2.3) mg/dL Total Bilirubin (0.2-1.3) mg/dL AST (17-59) IU/L ALT (<50) IU/L Alkaline Phosphatase (38-126) U/L Total Creatine Kinase (55-170) U/L CK-MB (CK-2) (<2.37) ng/mL CK-MB (CK-2) Rel Index (1.5-5.0) % Troponin I (0.01-0.034) ng/mL NT-Pro-B Natriuret Pep (<450) pg/mL Total Protein (6.3-8.2) g/dL Albumin (3.5-5.0) g/dL Globulin (1.7-4.1) g/dL Albumin/Globulin Ratio (1.0-2.8) Lipase (23-300) U/L Urine RBC (0-5/HPF) Urine WBC (0-5/HPF) Ur Squamous Epith Cells (0-5/HPF) Urine Bacteria (None) Ur Culture Indicated? SARS-CoV-2 (PCR) Negative (Negative) 04/19/22 04/19/22 04/19/22 Range/Units 13:35 13:46 15:35 WBC (4.5-11.0) X10^3/uL RBC (4.5-5.9) X10^6/uL Hgb (13.5-17.5) g/dL Hct (41-53) % MCV (80-100) fL MCH (26-34) PG MCHC (30-36) % RDW (11.6-14.8) % Plt Count (150-400) X10^3/uL Neut % (Auto) (50-75) % Lymph % (Auto) (25-40) % [place] % (Auto) (3-14) % Eos % (Auto) (2-4) % Baso % (Auto) (0-2) % Neut # (Auto) (1794-5709) /uL Lymph # (Auto) (8132-2173) /uL [place] # (Auto) (0-900) /uL Eos # (Auto) (0-450) /uL Baso # (Auto) (0-100) /uL PT (10.1-12.7) SECONDS INR (0.9-1.3) APTT (26.4-36.2) SECONDS Sodium 137 (137-145) mmol/L Potassium 3.7 (3.4-5.1) mmol/L Chloride 102 (98-107) mmol/L Carbon Dioxide 26 (22-32) mmol/L BUN 20 (9-20) mg/dL Creatinine 0.71 (0.66-1.25) mg/dL Estimated GFR > 60 (>60) mL/min BUN/Creatinine Ratio 28.2 H (6-22) Glucose 137 H (80-110) mg/dL Calcium 8.9 (8.4-10.2) mg/dL Magnesium 1.8 (1.6-2.3) mg/dL Total Bilirubin 0.3 (0.2-1.3) mg/dL AST 24 (17-59) IU/L ALT 14 (<50) IU/L Alkaline Phosphatase 66 (38-126) U/L Total Creatine Kinase 130 (55-170) U/L CK-MB (CK-2) 1.59 (<2.37) ng/mL CK-MB (CK-2) Rel Index 1.2 L (1.5-5.0) % Troponin I 0.042 H 0.480 H* (0.01-0.034) ng/mL NT-Pro-B Natriuret Pep 239 (<450) pg/mL Total Protein 7.7 (6.3-8.2) g/dL Albumin 4.1 (3.5-5.0) g/dL Globulin 3.6 (1.7-4.1) g/dL Albumin/Globulin Ratio 1.1 (1.0-2.8) Lipase 44 (23-300) U/L Urine RBC (0-5/HPF) Urine WBC (0-5/HPF) Ur Squamous Epith Cells (0-5/HPF) Urine Bacteria (None) Ur Culture Indicated? SARS-CoV-2 (PCR) (Negative) 04/19/22 04/19/22 04/19/22 Range/Units 17:50 18:48 22:47 WBC (4.5-11.0) X10^3/uL RBC (4.5-5.9) X10^6/uL Hgb (13.5-17.5) g/dL Hct (41-53) % MCV (80-100) fL MCH (26-34) PG MCHC (30-36) % RDW (11.6-14.8) % Plt Count (150-400) X10^3/uL Neut % (Auto) (50-75) % Lymph % (Auto) (25-40) % [place] % (Auto) (3-14) % Eos % (Auto) (2-4) % Baso % (Auto) (0-2) % Neut # (Auto) (0427-7717) /uL Lymph # (Auto) (9144-9424) /uL [place] # (Auto) (0-900) /uL Eos # (Auto) (0-450) /uL Baso # (Auto) (0-100) /uL PT (10.1-12.7) SECONDS INR (0.9-1.3) APTT Cancelled 60 H D (26.4-36.2) SECONDS Sodium (137-145) mmol/L Potassium (3.4-5.1) mmol/L Chloride (98-107) mmol/L Carbon Dioxide (22-32) mmol/L BUN (9-20) mg/dL Creatinine (0.66-1.25) mg/dL Estimated GFR (>60) mL/min BUN/Creatinine Ratio (6-22) Glucose (80-110) mg/dL Calcium (8.4-10.2) mg/dL Magnesium (1.6-2.3) mg/dL Total Bilirubin (0.2-1.3) mg/dL AST (17-59) IU/L ALT (<50) IU/L Alkaline Phosphatase (38-126) U/L Total Creatine Kinase (55-170) U/L CK-MB (CK-2) (<2.37) ng/mL CK-MB (CK-2) Rel Index (1.5-5.0) % Troponin I (0.01-0.034) ng/mL NT-Pro-B Natriuret Pep (<450) pg/mL Total Protein (6.3-8.2) g/dL Albumin (3.5-5.0) g/dL Globulin (1.7-4.1) g/dL Albumin/Globulin Ratio (1.0-2.8) Lipase (23-300) U/L Urine RBC None seen (0-5/HPF) Urine WBC None seen (0-5/HPF) Ur Squamous Epith Cells 0-1 /hpf (0-5/HPF) Urine Bacteria None seen (None) Ur Culture Indicated? Cult not indicated SARS-CoV-2 (PCR) (Negative) 04/19/22 04/20/2222 Range/Units 22:47 05:07 05:07 WBC 11.4 H (4.5-11.0) X10^3/uL RBC 3.31 L (4.5-5.9) X10^6/uL Hgb 8.8 L (13.5-17.5) g/dL Hct 27.2 L (41-53) % MCV 82.3 (80-100) fL MCH 26.6 (26-34) PG MCHC 32.3 (30-36) % RDW 15.4 H (11.6-14.8) % Plt Count 403 H (150-400) X10^3/uL Neut % (Auto) 76.4 H (50-75) % Lymph % (Auto) 15.5 L (25-40) % [place] % (Auto) 6.2 (3-14) % Eos % (Auto) 1.3 L (2-4) % Baso % (Auto) 0.6 (0-2) % Neut # (Auto) 8700 H (8264-0895) /uL Lymph # (Auto) 1800 (6831-7055) /uL [place] # (Auto) 700 (0-900) /uL Eos # (Auto) 200 (0-450) /uL Baso # (Auto) 100 (0-100) /uL PT (10.1-12.7) SECONDS INR (0.9-1.3) APTT 48 H D (26.4-36.2) SECONDS Sodium (137-145) mmol/L Potassium (3.4-5.1) mmol/L Chloride (98-107) mmol/L Carbon Dioxide (22-32) mmol/L BUN (9-20) mg/dL Creatinine (0.66-1.25) mg/dL Estimated GFR (>60) mL/min BUN/Creatinine Ratio (6-22) Glucose (80-110) mg/dL Calcium (8.4-10.2) mg/dL Magnesium (1.6-2.3) mg/dL Total Bilirubin (0.2-1.3) mg/dL AST (17-59) IU/L ALT (<50) IU/L Alkaline Phosphatase (38-126) U/L Total Creatine Kinase 412 H D (55-170) U/L CK-MB (CK-2) 31.80 H D (<2.37) ng/mL CK-MB (CK-2) Rel Index 7.7 H* (1.5-5.0) % Troponin I 8.260 H* (0.01-0.034) ng/mL NT-Pro-B Natriuret Pep (<450) pg/mL Total Protein (6.3-8.2) g/dL Albumin (3.5-5.0) g/dL Globulin (1.7-4.1) g/dL Albumin/Globulin Ratio (1.0-2.8) Lipase (23-300) U/L Urine RBC (0-5/HPF) Urine WBC (0-5/HPF) Ur Squamous Epith Cells (0-5/HPF) Urine Bacteria (None) Ur Culture Indicated? SARS-CoV-2 (PCR) (Negative) 04/20/22 04/20/22 04/20/22 Range/Units 05:07 11:00 11:23 WBC (4.5-11.0) X10^3/uL RBC (4.5-5.9) X10^6/uL Hgb (13.5-17.5) g/dL Hct (41-53) % MCV (80-100) fL MCH (26-34) PG MCHC (30-36) % RDW (11.6-14.8) % Plt Count (150-400) X10^3/uL Neut % (Auto) (50-75) % Lymph % (Auto) (25-40) % [place] % (Auto) (3-14) % Eos % (Auto) (2-4) % Baso % (Auto) (0-2) % Neut # (Auto) (1900-1820) /uL Lymph # (Auto) (9777-8067) /uL [place] # (Auto) (0-900) /uL Eos # (Auto) (0-450) /uL Baso # (Auto) (0-100) /uL PT (10.1-12.7) SECONDS INR (0.9-1.3) APTT 54 H (26.4-36.2) SECONDS Sodium 138 (137-145) mmol/L Potassium 4.3 (3.4-5.1) mmol/L Chloride 106 (98-107) mmol/L Carbon Dioxide 27 (22-32) mmol/L BUN 13 (9-20) mg/dL Creatinine 0.57 L (0.66-1.25) mg/dL Estimated GFR > 60 (>60) mL/min BUN/Creatinine Ratio 22.8 H (6-22) Glucose 102 (80-110) mg/dL Calcium 8.5 (8.4-10.2) mg/dL Magnesium (1.6-2.3) mg/dL Total Bilirubin (0.2-1.3) mg/dL AST (17-59) IU/L ALT (<50) IU/L Alkaline Phosphatase (38-126) U/L Total Creatine Kinase 404 H (55-170) U/L CK-MB (CK-2) 29.00 H (<2.37) ng/mL CK-MB (CK-2) Rel Index 7.2 H* (1.5-5.0) % Troponin I 6.600 H* 4.110 H* (0.01-0.034) ng/mL NT-Pro-B Natriuret Pep (<450) pg/mL Total Protein (6.3-8.2) g/dL Albumin (3.5-5.0) g/dL Globulin (1.7-4.1) g/dL Albumin/Globulin Ratio (1.0-2.8) Lipase (23-300) U/L Urine RBC (0-5/HPF) Urine WBC (0-5/HPF) Ur Squamous Epith Cells (0-5/HPF) Urine Bacteria (None) Ur Culture Indicated? SARS-CoV-2 (PCR) (Negative) 04/20/22 04/20/22 04/20/22 Range/Units 17:15 17:15 23:15 WBC (4.5-11.0) X10^3/uL RBC (4.5-5.9) X10^6/uL Hgb (13.5-17.5) g/dL Hct (41-53) % MCV (80-100) fL MCH (26-34) PG MCHC (30-36) % RDW (11.6-14.8) % Plt Count (150-400) X10^3/uL Neut % (Auto) (50-75) % Lymph % (Auto) (25-40) % [place] % (Auto) (3-14) % Eos % (Auto) (2-4) % Baso % (Auto) (0-2) % Neut # (Auto) (2540-2989) /uL Lymph # (Auto) (7484-0129) /uL [place] # (Auto) (0-900) /uL Eos # (Auto) (0-450) /uL Baso # (Auto) (0-100) /uL PT (10.1-12.7) SECONDS INR (0.9-1.3) APTT 55 H 124 H* D (26.4-36.2) SECONDS Sodium (137-145) mmol/L Potassium (3.4-5.1) mmol/L Chloride (98-107) mmol/L Carbon Dioxide (22-32) mmol/L BUN (9-20) mg/dL Creatinine (0.66-1.25) mg/dL Estimated GFR (>60) mL/min BUN/Creatinine Ratio (6-22) Glucose (80-110) mg/dL Calcium (8.4-10.2) mg/dL Magnesium (1.6-2.3) mg/dL Total Bilirubin (0.2-1.3) mg/dL AST (17-59) IU/L ALT (<50) IU/L Alkaline Phosphatase (38-126) U/L Total Creatine Kinase (55-170) U/L CK-MB (CK-2) (<2.37) ng/mL CK-MB (CK-2) Rel Index (1.5-5.0) % Troponin I 3.000 H* (0.01-0.034) ng/mL NT-Pro-B Natriuret Pep (<450) pg/mL Total Protein (6.3-8.2) g/dL Albumin (3.5-5.0) g/dL Globulin (1.7-4.1) g/dL Albumin/Globulin Ratio (1.0-2.8) Lipase (23-300) U/L Urine RBC (0-5/HPF) Urine WBC (0-5/HPF) Ur Squamous Epith Cells (0-5/HPF) Urine Bacteria (None) Ur Culture Indicated? SARS-CoV-2 (PCR) (Negative) 04/20/22 04/21/22 04/21/22 Range/Units 23:15 05:12 05:12 WBC (4.5-11.0) X10^3/uL RBC (4.5-5.9) X10^6/uL Hgb (13.5-17.5) g/dL Hct (41-53) % MCV (80-100) fL MCH (26-34) PG MCHC (30-36) % RDW (11.6-14.8) % Plt Count (150-400) X10^3/uL Neut % (Auto) (50-75) % Lymph % (Auto) (25-40) % [place] % (Auto) (3-14) % Eos % (Auto) (2-4) % Baso % (Auto) (0-2) % Neut # (Auto) (8698-2151) /uL Lymph # (Auto) (3275-0631) /uL [place] # (Auto) (0-900) /uL Eos # (Auto) (0-450) /uL Baso # (Auto) (0-100) /uL PT (10.1-12.7) SECONDS INR (0.9-1.3) APTT 77 H* D (26.4-36.2) SECONDS Sodium (137-145) mmol/L Potassium (3.4-5.1) mmol/L Chloride (98-107) mmol/L Carbon Dioxide (22-32) mmol/L BUN (9-20) mg/dL Creatinine (0.66-1.25) mg/dL Estimated GFR (>60) mL/min BUN/Creatinine Ratio (6-22) Glucose (80-110) mg/dL Calcium (8.4-10.2) mg/dL Magnesium (1.6-2.3) mg/dL Total Bilirubin (0.2-1.3) mg/dL AST (17-59) IU/L ALT (<50) IU/L Alkaline Phosphatase (38-126) U/L Total Creatine Kinase (55-170) U/L CK-MB (CK-2) (<2.37) ng/mL CK-MB (CK-2) Rel Index (1.5-5.0) % Troponin I 2.600 H* 2.150 H* (0.01-0.034) ng/mL NT-Pro-B Natriuret Pep (<450) pg/mL Total Protein (6.3-8.2) g/dL Albumin (3.5-5.0) g/dL Globulin (1.7-4.1) g/dL Albumin/Globulin Ratio (1.0-2.8) Lipase (23-300) U/L Urine RBC (0-5/HPF) Urine WBC (0-5/HPF) Ur Squamous Epith Cells (0-5/HPF) Urine Bacteria (None) Ur Culture Indicated? SARS-CoV-2 (PCR) (Negative) 04/21/22 04/21/22 Range/Units 11:20 11:20 WBC (4.5-11.0) X10^3/uL RBC (4.5-5.9) X10^6/uL Hgb (13.5-17.5) g/dL Hct (41-53) % MCV (80-100) fL MCH (26-34) PG MCHC (30-36) % RDW (11.6-14.8) % Plt Count (150-400) X10^3/uL Neut % (Auto) (50-75) % Lymph % (Auto) (25-40) % [place] % (Auto) (3-14) % Eos % (Auto) (2-4) % Baso % (Auto) (0-2) % Neut # (Auto) (0502-5396) /uL Lymph # (Auto) (7838-4688) /uL [place] # (Auto) (0-900) /uL Eos # (Auto) (0-450) /uL Baso # (Auto) (0-100) /uL PT (10.1-12.7) SECONDS INR (0.9-1.3) APTT 67 H (26.4-36.2) SECONDS Sodium (137-145) mmol/L Potassium (3.4-5.1) mmol/L Chloride (98-107) mmol/L Carbon Dioxide (22-32) mmol/L BUN (9-20) mg/dL Creatinine (0.66-1.25) mg/dL Estimated GFR (>60) mL/min BUN/Creatinine Ratio (6-22) Glucose (80-110) mg/dL Calcium (8.4-10.2) mg/dL Magnesium (1.6-2.3) mg/dL Total Bilirubin (0.2-1.3) mg/dL AST (17-59) IU/L ALT (<50) IU/L Alkaline Phosphatase (38-126) U/L Total Creatine Kinase (55-170) U/L CK-MB (CK-2) (<2.37) ng/mL CK-MB (CK-2) Rel Index (1.5-5.0) % Troponin I 1.630 H* (0.01-0.034) ng/mL NT-Pro-B Natriuret Pep (<450) pg/mL Total Protein (6.3-8.2) g/dL Albumin (3.5-5.0) g/dL Globulin (1.7-4.1) g/dL Albumin/Globulin Ratio (1.0-2.8) Lipase (23-300) U/L Urine RBC (0-5/HPF) Urine WBC (0-5/HPF) Ur Squamous Epith Cells (0-5/HPF) Urine Bacteria (None) Ur Culture Indicated? SARS-CoV-2 (PCR) (Negative) Urine Dip Bedside Urine Glucose Negative Bedside Urine Bilirubin - Negative Bedside Urine Ketone +++ 80 Urine Specific [place] 1.020 Bedside Urine Occult Blood - Negative Bedside Urine pH 6 Bedside Urine Protein +/- 15 Bedside Urine Urobilinogen - Negative Bedside Urine Nitrite - Negative Bedside Urine Leukocytes - Negative Esterase Critical Care Time <Luz Hernandez DO - Last Filed: 04/22/22 16:20> Critical Care Time Critical Care Time: Yes Attestation: The high probability of a clinically significant, sudden or life threatening deterioration of the [] system(s) required my full and direct attention, intervention and personal management. The aggregate critical care time was [] minutes. This time is in addition to time spent performing reported procedures but includes the following: [x] Data Review and interpretation [x] Patient assessment and monitoring of vital signs [x] Documentation [x] Medication orders and management <Jarrell Maldonado MD - Last Filed: 04/21/22 13:40> Critical Care Time Total Critical Care Time: 80 Discharge Plan Departure Patient Disposition: Admitted As Inpatient Clinical Impression: Non-ST elevation MA (NSTEMI) Admit Date/Time: 04/21/22 13:37 Admit Provider: Carson Askew
--- NOTE | 2022-04-19 16:35 | DI.CT.S_ITS ---
PROCEDURE: CT ANGIO CHEST PE PROTOCOL INDICATIONS: epigastric pain, + trop TECHNIQUE: After the administration of intravenous contrast, 2 mm thick sections acquired from the pulmonary apices to the posterior costophrenic angles. 3-dimensional maximum intensity projection (MIP) coronal and sagittal reformats were then acquired through the thorax. For radiation dose reduction, the following was used: automated exposure control, adjustment of mA and/or kV according to patient size. COMPARISON: [facility], CT, CT CHEST WO CON, 02/18/2019, 13:54. FINDINGS: Image quality: Excellent. Pulmonary arteries: Pulmonary arteries are normal in size, and demonstrate no intraluminal filling defects to suggest central pulmonary embolism. Lungs and pleura: There is a subpleural nodule within the left upper lobe posteriorly measuring 9 mm (5/56), before. Scarring within the bilateral lung bases is present as before. No pleural effusions or pneumothorax. Central and peripheral airways are patent. Mediastinum: Heart size is normal, without pericardial effusion. Severe calcification of the coronary vasculature is present. No mediastinal or hilar adenopathy. Thoracic aorta is normal in caliber and enhancement. Esophagus is normal in caliber, without hiatal hernia. Bones and chest wall: No suspicious bony lesions. Ribs and thoracic spine appear intact throughout. Thyroid gland demonstrates multiple nodules bilaterally, largest of which is in the right lobe spanning roughly 43 mm and demonstrating substernal extension. No axillary or supraclavicular adenopathy. Abdomen: Visualized upper abdominal solid organs appear normal in the early arterial phase of enhancement. IMPRESSION: 1. No acute process. No pulmonary embolus. 2. Coronary artery disease. 3. No change in left upper lobe pulmonary nodule. 4. Change in bilateral thyroid nodules. Dictated by: Myra Abarca M.D. on 04/19/2022 at 17:46 Approved by: Myra Abarca M.D. on 04/19/2022 at 17:50
[2022-04-19 17:10] LABS: COVID19 -Nasal RAPID Negative (Negative)
[2022-04-19] MEDS: ASPIRIN 81 MG CHEW TAB 324 MG PO (17:15)
[2022-04-19] MEDS: HEPARIN DRIP 25,000 UNIT/500 ML IV.SOLN 20 UNIT IV (17:16)
[2022-04-19] MEDS: HEPARIN 5,000 UNIT/ML VIAL 5000 UNIT IV (17:16)
[2022-04-19 18:19] LABS: Bacteria Urine None Seen; Culture Indicated Urine Cult Not Indicated; RBC Urine None Seen (0-5/HPF); Squamous Epithelial Cell Urine 0-1 /HPF (0-5/HPF); WBC Urine None Seen (0-5/HPF)
[2022-04-19] MEDS: ATORVASTATIN 20 MG TABLET 80 MG PO (18:38)
--- NOTE | 2022-04-19 18:45 | PC.NURSE ---
Addendum entered by Pepe Gomez CNA 04/19/22 18:47: the original note closed at I was typing. I called [facility] at 1749 and they refused to add this patient to their list stating that it was currently full and no beds. I called [facility] at 1753 and they stated that they are unable to add any patient to their list and to return the call in four hours. I called [facility] at 1757 and placed this patient on their list. I called [facility] 1807 and placed this patient on their list I called [facility] at 1813 and placed this patient on their list Original Note: Provider Dr. Hernandez asked me to try and place this patient on transfer lists. I called [facility] at 1800 and placed this patient on their list. I called
--- NOTE | 2022-04-19 20:19 | PC.NURSE ---
resting quietly on stretcher waiting disposition
[2022-04-19] MEDS: MEMANTINE HCL 5 MG TABLET 10 MG PO (21:26)
--- NOTE | 2022-04-19 21:31 | PC.NURSE ---
pt given a sandwich and latisha tomas at bedside
[2022-04-19 23:25] LABS: PTT Partial Thromboplastin Tim 60 SECONDS (26.4-36.2)
[2022-04-19 23:26] LABS: Creatine Kinase 412 U/L (55-170)
[2022-04-19 23:44] LABS: CKMB % Relative Index 7.7 % (1.5-5.0)
[2022-04-20] VITALS (88 sets, daily range): BP systolic 107–169; BP diastolic 54–110; PULSE 59–172; RESP 11–31; O2SAT 92–98
[2022-04-20 05:19] LABS: Eosinophils Absolute Auto 200 /uL (0-450); Hemoglobin 8.8 g/dL (13.5-17.5); Mean Corpuscular Hemoglobin 26.6 PG (26-34)
[2022-04-20 05:23] LABS: Add Manual Diff / Slide Review NO; Basophils Absolute Auto 100 /uL (0-100); Basophils Percent Auto 0.6 % (0-2); Eosinophils Percent Auto 1.3 % (2-4); Hematocrit 27.2 % (41-53); Lymphocytes Absolute Auto 1800 /uL (1100-4500); Lymphocytes Percent Auto 15.5 % (25-40); Mean Corpuscular HGB Conc 32.3 % (30-36); Mean Corpuscular Volume 82.3 fL (80-100); Monocytes Absolute Auto 700 /uL (0-900); Monocytes Percent Auto 6.2 % (3-14); Neutrophils Absolute Auto 8700 /uL (1500-7000); Neutrophils Percent Auto 76.4 % (50-75); Platelet Count 403 X10^3/uL (150-400); Red Blood Cell Count 3.31 X10^6/uL (4.5-5.9); Red Cell Distribution Width 15.4 % (11.6-14.8); White Blood Cell Count 11.4 X10^3/uL (4.5-11.0)
[2022-04-20 05:31] LABS: PTT Partial Thromboplastin Tim 48 SECONDS (26.4-36.2)
[2022-04-20 05:32] LABS: BUN Creatinine Ratio 22.8 (6-22); Blood Urea Nitrogen 13 mg/dL (9-20); Calcium 8.5 mg/dL (8.4-10.2); Carbon Dioxide 27 mmol/L (22-32); Chloride 106 mmol/L (98-107); Creatine Kinase 404 U/L (55-170); Estimated Glomerular Filt Rate > 60 mL/min (>60); Glucose 102 mg/dL (80-110); HEMOLYSIS 26 (0-50); Potassium 4.3 mmol/L (3.4-5.1); Sodium 138 mmol/L (137-145)
[2022-04-20 05:53] LABS: CKMB % Relative Index 7.2 % (1.5-5.0)
[2022-04-20] MEDS: ASPIRIN 81 MG CHEW TAB 324 MG PO (08:18)
[2022-04-20] MEDS: MEMANTINE HCL 5 MG TABLET 10 MG PO ×2 (08:21→21:15)
[2022-04-20] MEDS: methIMAzole 5 MG TABLET PO (08:22)
[2022-04-20] MEDS: DIVALPROEX DR 250 MG TABLET PO ×2 (08:23→19:09)
[2022-04-20] MEDS: lisinopriL 5 MG TABLET PO (08:23)
[2022-04-20] MEDS: PANTOPRAZOLE 40 MG VIAL IV (08:25)
[2022-04-20 11:49] LABS: PTT Partial Thromboplastin Tim 54 SECONDS (26.4-36.2)
--- NOTE | 2022-04-20 12:01 | PC.NURSE ---
APTT is 54. Within target range so no change in Heparin drip. Per MD Hernandez, verbal order of Q6 trop and APTT at 1730. Checked on pt. at bedside.
--- NOTE | 2022-04-20 13:00 | PC.NURSE ---
went home for nap. Pt remains confused with increased agitation with inconsistent reports of chest pain. Notified MD Hernandez. Repeat EKG ordered.
[2022-04-20] MEDS: HEPARIN DRIP 25,000 UNIT/500 ML IV.SOLN 21 UNIT IV (15:33)
[2022-04-20] MEDS: ACETAMINOPHEN 325 MG TABLET 650 MG PO (16:02)
[2022-04-20 17:34] LABS: PTT Partial Thromboplastin Tim 55 SECONDS (26.4-36.2)
[2022-04-20] MEDS: ATORVASTATIN 20 MG TABLET 80 MG PO (21:15)
[2022-04-20 23:51] LABS: PTT Partial Thromboplastin Tim 124 SECONDS (26.4-36.2)
[2022-04-21] VITALS (43 sets, daily range): BP systolic 118–164; BP diastolic 56–88; PULSE 62–157; RESP 16–28; TEMP 36.3–36.6; O2SAT 88–99; BMI 25.2
--- NOTE | 2022-04-21 01:43 | PC.NURSE ---
heparin infusion paused from 04/20/22 at 1155 till 04/21/22 at 0055 per protocol.
--- NOTE | 2022-04-21 02:16 | PC.NURSE ---
pt cleaned of wet bed linens and condom cath applied
[2022-04-21 05:29] LABS: PTT Partial Thromboplastin Tim 77 SECONDS (26.4-36.2)
[2022-04-21] MEDS: DIVALPROEX DR 250 MG TABLET PO ×2 (09:00→20:55)
[2022-04-21] MEDS: PANTOPRAZOLE 40 MG VIAL IV (09:00)
[2022-04-21] MEDS: lisinopriL 5 MG TABLET PO (09:00)
[2022-04-21] MEDS: MEMANTINE HCL 5 MG TABLET 10 MG PO ×2 (09:00→20:56)
[2022-04-21] MEDS: ATORVASTATIN 20 MG TABLET 80 MG PO (09:00)
[2022-04-21] MEDS: methIMAzole 5 MG TABLET PO (09:54)
--- NOTE | 2022-04-21 09:57 | PC.NURSE ---
Scanned am meds, not saved. Re-entered. Charge aware.
--- NOTE | 2022-04-21 11:14 | PC.NURSE ---
Obtained pt care. [facility] continues to work on placement for higher level of care. Trop & PTT ordered for 1115 draw. Pt resting, calm and comfortably. Call light within reach. Pt in view room for close observation.
[2022-04-21 11:42] LABS: PTT Partial Thromboplastin Tim 67 SECONDS (26.4-36.2)
--- NOTE | 2022-04-21 12:04 | PC.NURSE ---
Pt PTT 67. Per heparin infusion protocol PTT is in target range. Next lab draw ordered for 04/22 at 0600. No change in infusion rate. See paper flow chart.
--- NOTE | 2022-04-21 12:32 | PC.NURSE ---
at bedside. Updated patient and . Verbal order from Dr Maldonado to change diet order. Patient provided with egg salad sandwhich and peaches. Patient Repositioned in bed to eat lunch with 's assistance
--- NOTE | 2022-04-21 16:20 | DI.ECHO.S_ITS ---
[place] [facility] +---------+ : : [address] [place] : : : : [id number] : : : : Phone: [phone] Echocardiogram Report + + :Name: PRISCILLA SANCHEZ Study Date: 04/22/2022 Height: 71 in : :[facility] ReadingLocation: Weight: 181 lb : : Gender: Male BSA: 2.0 m2 : :: 1945 Age: 76 yrs BP: 147/68 mmHg: :Reason For Study: ACUTE OH : :Ordering Physician: ISHAN, : :YUDELKA Performed By: Dariana Amezcua : :Referring: YUDELKA OLMSTEAD : + + Interpretation Summary The left ventricle is normal in size and wall thickness. Left ventricular ejection fraction is estimated to be 35 +/- 5%. There is a marked dyssynchronous contraction pattern, consistent with a conduction abnormality. Difficult to rule out segmental hypokinesis due to significant dyssynchronous pattern. Diastolic parameters suggest a relaxation abnormality of the left ventricle, consistent with probable normal filling pressures. The right ventricle is normal in size and function. The left atrium is mildly dilated. The right atrium is mild to moderately dilated. There is mild mitral regurgitation. The aortic root is normal size. Procedure: A two-dimensional transthoracic echocardiogram with color flow and Doppler was performed. The study quality was technically adequate. There is no prior echocardiogram noted for this patient. The heart rate ranged between 76-81 bpm during the study. Left Ventricle: The left ventricle is normal in size and wall thickness. Left ventricular systolic function is moderately reduced. Left ventricular ejection fraction is estimated to be 35 +/- 5%. There is a marked dyssynchronous contraction pattern, consistent with a conduction abnormality. Difficult to rule out segmental hypokinesis due to significant dyssynchronous pattern. Diastolic parameters suggest a relaxation abnormality of the left ventricle, consistent with probable normal filling pressures. Right Ventricle: The right ventricle is normal in size and function. Atria: The left atrium is mildly dilated. The right atrium is mild to moderately dilated. There is no Doppler evidence for an interatrial shunt. Mitral Valve: The mitral valve leaflets appear mildly thickened, but open well. There is mild mitral regurgitation. Aortic Valve: The aortic valve is trileaflet. The aortic valve opens well. There is no aortic valve stenosis. No aortic regurgitation is present. Tricuspid Valve: The tricuspid valve is normal in structure and function. There is mild tricuspid regurgitation. Pulmonic Valve: The pulmonic valve leaflets are thin and pliable; valve motion is normal. There is trace pulmonic regurgitation. Great Vessels: The aortic root is normal size. The ascending aorta could not be visualized. The IVC is dilated (diameter is greater than 2.1 cm) yet it collapses greater than 50% with a sniff. This suggests a right atrial pressure of 8 mm Hg. Pericardium/ Pleura There is no pericardial effusion. There is no pleural effusion. MMode/2D Measurements & Calculations LVIDd: 5.5 cm LVOT diam: 2.1 cm LVIDs: 4.6 cm Ao root diam: 3.8 cm FS: 16.3 % IVSd: 0.85 cm LVPWd: 0.75 cm LV casas. diameter/BSA (cm/m^2): 2.7 LV sys. diameter/BSA (cm/m^2): 2.3 LA A2 area: 20.7 cm2 RA long axis: 5.6 cm LA A4 area: 26.0 cm2 RA area: 23.8 cm2 LA length (vol): 6.2 cm RA vol: 86.4 ml LA vol: 74.1 ml RA : 42.8 ml/m2 LA vol index: 36.7 ml/m2 IVC diam: 2.2 cm RVD1 (basal): 3.4 cm RVD2 (mid): 3.0 cm TAPSE: 2.2 cm Doppler Measurements & Calculations Ao V2 max: 112.7 cm/sec LVOT Max Durga: 95.2 cm/sec Ao V2 mean: 80.4 cm/sec LV V1 max P.6 mmHg Ao max P.1 mmHg LV V1 VTI: 16.6 cm Ao mean P.8 mmHg CHATA(I,D): 3.0 cm2 Ao V2 VTI: 19.0 cm CHATA(V,D): 2.9 cm2 sev ratio: 0.87 CHATA indexed to BSA (cm^2/m^2): 1.5 MV E max durga: 52.7 cm/sec PA V2 max: 125.2 cm/sec MV A max durga: 67.9 cm/sec PA V2 mean: 85.1 cm/sec MV E/A: 0.78 PA mean P.2 mmHg Med Peak E' Durga: 5.0 cm/sec PA pr(Accel): 36.2 mmHg E/E' med: 10.5 Lat Peak E' Durga: 6.6 cm/sec E/E' lat: 8.0 E/e' average: 9.2 MV dec time: 0.18 sec SV(OT): 56.7 ml Reading Physician:04:54 PM
--- NOTE | 2022-04-21 16:21 | P.HP_ITS ---
History of Present Illness History of Present Illness Date Patient Seen: 04/21/22 Time Patient Seen: 16:00 Chief complaint: Fall Narrative: 76-year-old male with history of CAD, prior coronary stents, LBBB, vascular dementia, Graves disease with ophthalmopathy, ocular myasthenia gravis, right eye severe vision loss, BREA initially presented to ED on April 19 after an unwitnessed ground level fall at home. Patient lives with spouse who is sole caregiver. She had left the house for just about an hour when returned home and found him down on the garage floor. Medics were called and noted he had a near- syncopal episode with standing him up. He was brought to the emergency department. In the ED noted to have mildly elevated troponin with significant increasing levels consistent with acute [place]. EKG showed prior left bundle branch block. Patient has advanced dementia and does not recall circumstances around the fall. He was at PCP office 2 days prior complaining of left upper abdominal pain after eating and prescribed sucralfate which he had not yet started. He denies chest pain. Chest CTA no PE and head CT without acute findings. He has h/o SHERIN to RCA 2004 and SHERIN to LCX 2009. Patient was started on IV heparin in the ED. troponin eventually peaked at 6.6 on 04/20 and subsequently trending down. He has not had ventricular arrhythmias. Initial plan was to transfer him to other hospital where he could have cardiac catheterization. He is established at [facility] cardiology. However he had to remain in the ER the past couple of days due to lack of bed availability. On further discussion with his spouse, it became apparent that his quality of life is so diminished with his advanced dementia that cardiac catheterization may not be best option. Spouse does note that patient's cognitive and physical functioning has been declining over last several years and he needs help with bathing, dressing, has been gradually losing weight and as well as has worsening gait with history of falls. Spouse also notes that patient was started on Depakote just recently by his neurologist for where he is getting agitated and verbally abusive. She does not think the Depakote is helping yet. Patient History Medical History Actinic keratosis Anterior spinal artery compression syndromes, cervical region BPH w urinary obs/LUTS CAD (coronary artery disease) (~2001) Cervical spinal stenosis Chest pain Chronic diarrhea Chronic left-sided low back pain with left-sided sciatica Chronic seasonal allergic rhinitis COPD (chronic obstructive pulmonary disease) (~2009) Dementia Depression (~2015) Diarrhea Eczema Encounter for routine history and physical examination Enlarged prostate Exophthalmos of right eye Glaucoma Graves disease (~2004) Gum disease H/O nephrolithotomy with removal of calculi Hearing loss History of bronchitis History of migraine Hypercholesterolemia Hyperlipidemia Hypertension (~2005) Kidney stones Left knee pain Left upper quadrant abdominal pain Left ureteral stone Obesity (BMI 30-39.9) Obstructive sleep apnea Ocular myasthenia gravis Osteoarthritis Ptosis of eyelid, left Right hydrocele Screen for colon cancer Thyroid disease Thyroid nodule (~2016) Vascular dementia Vision loss (~194) Surgical History Anesthesia H/O circumcision History of blepharoplasty (~04/23/17) History of cataract removal with insertion of prosthetic lens (~2015) History of coronary artery stent placement (~2004) History of eye surgery (~01/03/15) History of placement of stent in anterior descending branch of left coronary artery (~2009) History of strabismus surgery (~2002) History of total knee replacement (~09/24/18) Previous back surgery (~2005) Family & Social History Family History Father Accident Mother History of heart disease Sister Cancer Social History: household members spouse Prior Living Arrangements House lives independently Yes caregiver/support person Yes: other gardening, working in his shop Safety & Behavioral: Feels Safe in Current Yes Environment Been Physically Hurt or No Threatened By a Person Tobacco & Substance use: Tobacco type cigarettes Smoking Status Former smoker alcohol intake current alcohol intake frequency holiday/special occasion Substance Use Type does not use Meds Home Medications and Allergies Home Medications Medication Instructions Recorded Confirmed Type aspirin 81 mg tablet,delayed 81 mg PO DAILY 09/14/18 04/21/22 History release rosuvastatin 5 mg tablet 5 mg PO DAILY #90 tab 01/26/20 04/21/22 Rx sildenafil 100 mg tablet 100 mg PO DAILY PRN #10 tab 01/26/20 04/21/22 Rx vitamin B complex (B 1 tab PO DAILY 08/31/20 04/21/22 History Complex-Vitamin B12) albuterol sulfate 90 mcg/actuation 2 puff INHALATION Q6H PRN #18 gram 01/09/21 04/21/22 Rx aerosol inhaler memantine 10 mg tablet 10 mg PO BID #180 tab 04/05/21 04/21/22 Rx amlodipine 5 mg tablet 5 mg PO DAILY #90 tab 04/16/21 04/21/22 Rx lisinopril 5 mg tablet 5 mg PO DAILY #90 tab 05/15/21 04/21/22 Rx donepezil 10 mg tablet See Rx Instructions .ROUTE 06/04/21 04/21/22 Rx .COMPLEX #90 tab Disabled Parking Permit #1 ea 06/20/21 03/08/22 Rx [employer] Auto BIPAP 12/18/21 03/08/22 History methimazole 5 mg tablet See Rx Instructions .ROUTE 02/04/22 04/21/22 Rx .COMPLEX #90 tab tiotropium bromide 18 mcg capsule See Rx Instructions .ROUTE 02/04/22 04/21/22 Rx with inhalation device (Spiriva .COMPLEX #90 cap with HandiHaler) citalopram 40 mg tablet See Rx Instructions .ROUTE 02/25/22 04/21/22 Rx .COMPLEX #90 tab clotrimazole-betamethasone 1 1 applic TOP BID 14 Days #45 gram 04/17/22 04/21/22 Rx %-0.05 % topical cream alfuzosin 10 mg tablet,extended 10 mg PO .hs #90 tab 04/18/22 04/21/22 Rx release 24 hr divalproex 250 mg tablet,delayed 250 mg PO BEDTIME 04/21/22 04/21/22 History release Allergies Allergy/AdvReac Type Severity Reaction Status Date / Time ezetimibe Allergy Mild Joint/Muscle Verified 03/08/22 15:36 Pain atorvastatin AdvReac Mild Joint/Muscle Verified 03/08/22 15:36 Pain simvastatin AdvReac Mild Joint/Muscle Verified 03/08/22 15:36 Pain Review of Systems Review of Systems Narrative: Complete 10 point ROS negative other than stated above, history limited by patient's advanced dementia. Exam Vital Signs (past 8 hours): - 04/21/22 08:30 04/21/22 09:00 04/21/22 09:30 Temperature Pulse Rate 66 76 100 H Respiratory Rate 21 20 23 Blood Pressure 146/66 H Pulse Oximetry 96 95 96 04/21/22 10:00 04/21/22 10:01 04/21/22 10:30 Temperature Pulse Rate 74 79 71 Respiratory Rate 16 18 21 Blood Pressure 121/84 Pulse Oximetry 96 95 97 04/21/22 11:00 04/21/22 11:30 04/21/22 12:00 Temperature Pulse Rate 79 76 75 Respiratory Rate 24 19 19 Blood Pressure 132/72 Pulse Oximetry 95 96 94 04/21/22 12:30 04/21/22 13:00 04/21/22 13:30 Temperature Pulse Rate 71 72 75 Respiratory Rate 20 23 Blood Pressure Pulse Oximetry 98 93 94 04/21/22 13:45 04/21/22 13:50 04/21/22 15:01 Temperature 97.4 F L Pulse Rate 76 Respiratory Rate 22 Blood Pressure 122/59 L Pulse Oximetry 88 L 96 99 Oxygen Delivery Method Room Air Oxygen Flow Rate 1 Narrative Exam Narrative: General: Alert male who appears confused but not an acute distress HEENT: No trauma or bruising, chronic ptosis left greater than right, pupils equal and reactive Neck: No lymphadenopathy Lungs: Clear to auscultation Heart: Normal S1 and S2, regular rate and rhythm, without murmur Abdomen: Soft, nontender, no HSM Extremities: Warm, not edematous Neurological: Oriented to person only, speech is aphasic, is able to follow simple commands, UE strength 5/5 bilaterally, LE strength 5/5 bilaterally Integument: No skin ulcerations or breakdown Objective Labs Result Diagrams: 04/20/22 05:07 04/20/22 05:07 Labs: Laboratory Results - last 24 hr 04/20/22 04/20/22 04/20/22 17:15 17:15 23:15 APTT 55 H 124 H* D Troponin I 3.000 H* 04/20/22 04/21/22 04/21/22 23:15 05:12 05:12 APTT 77 H* D Troponin I 2.600 H* 2.150 H* 04/21/22 04/21/22 11:20 11:20 APTT 67 H Troponin I 1.630 H* Assessment & Plan Assessment & Plan narrative: 1. NSTEMI likely secondary to occlusive CAD -old LBBB on EKG, troponin peaked at 6.6 on 04/20 and subsequently declining -started IV heparin drip on 04/19 at 1700, continue drip for 48-72 hours -aspirin 81 mg q.d., clopidogrel 75 mg q.d. -metoprolol 12.5 mg b.i.d. -high-intensity statin (on rosuvastatin 5 mg at home, atorvastatin 40 mg ordered here but noting joint/muscle pain side effects on allergy list, can increase rosuvastatin on discharge) -telemetry -echo -lipid panel -spouse agrees patient is not good cardiac catheterization candidate secondary to advanced dementia and poor baseline quality of life 2. Ground level fall -worsening mobility secondary to vascular dementia -head CT negative acute findings -PT/OT consult 3. Hypertension -continue lisinopril 5 mg q.d. -stopped amlodipine 5 mg q.d. as BP running well within normal range -started low-dose metoprolol for cardiac protection as above 4. Graves disease -continue methimazole 5 mg q.d. 5. Vascular dementia with sundowning behavior -continue donepezil and memantine -continue Depakote 250 mg b.i.d. started recently by his neurologist -quetiapine 25 mg at 4:00 p.m. daily for sundowning -decrease citalopram to 20 mg q.d. due to QTC prolongation risk with quetiapine and citalopram -spouse sole caregiver and expresses inability continue to take care of him at home, has already looked into [facility] care facility in [facility] -consult Care Management, discussed with spouse to get him in to SNF short-term stay rehab and then to a memory care facility for long-term care Code status: DNR Admit status: Inpatient Time Spent With Patient Critical Care time: I spent a total of [] minutes of critical care time on this patient's care today; this time is exclusive of procedural time.
[2022-04-21] MEDS: QUETIAPINE 25 MG TABLET PO (17:24)
[2022-04-21] MEDS: HEPARIN DRIP 25,000 UNIT/500 ML IV.SOLN 17 UNIT IV (20:11)
[2022-04-21] MEDS: METOPROLOL IR 25 MG TABLET 12.5 MG PO (20:55)
[2022-04-21] MEDS: DONEPEZIL 5 MG TABLET 10 MG PO (20:56)
[2022-04-22] VITALS (7 sets, daily range): BP systolic 117–155; BP diastolic 56–74; PULSE 73–84; RESP 16–18; TEMP 36.4–37.2; O2SAT 93–96
--- NOTE | 2022-04-22 05:28 | PC.NURSE ---
Addendum entered by Zane Zabala R.N. 04/22/22 05:37: Safety precautions maintained. Will continue to monitor. Original Note: Shift Note: Patient was drowsy but arousable, oriented to self, generally confused and demented, agitated and irritable when touched or assessed. Uses owned CPAP while asleep, O2 sat 94 by CPAP, vital signs are stable and within acceptable limits. Repositioned every 2hrs. Remained on heparin drip at 850 units/hr, no bleeding noted. Patient denies pain/discomfort, no signs of distress. Patient has urinary and bowel incontinent, had one bowel movement.
[2022-04-22 05:57] LABS: Add Manual Diff / Slide Review NO; Basophils Absolute Auto 0 /uL (0-100); Basophils Percent Auto 0.3 % (0-2); Eosinophils Absolute Auto 200 /uL (0-450); Eosinophils Percent Auto 1.5 % (2-4); Hematocrit 30.4 % (41-53); Lymphocytes Absolute Auto 1700 /uL (1100-4500); Lymphocytes Percent Auto 13.7 % (25-40); Mean Corpuscular HGB Conc 32.8 % (30-36); Mean Corpuscular Hemoglobin 26.8 PG (26-34); Mean Corpuscular Volume 81.7 fL (80-100); Monocytes Absolute Auto 600 /uL (0-900); Monocytes Percent Auto 5.3 % (3-14); Neutrophils Absolute Auto 9700 /uL (1500-7000); Neutrophils Percent Auto 79.2 % (50-75); Platelet Count 440 X10^3/uL (150-400); Red Blood Cell Count 3.72 X10^6/uL (4.5-5.9); Red Cell Distribution Width 15.2 % (11.6-14.8); White Blood Cell Count 12.2 X10^3/uL (4.5-11.0)
[2022-04-22 06:01] LABS: PTT Partial Thromboplastin Tim 54 SECONDS (26.4-36.2)
[2022-04-22 06:03] LABS: Alanine Aminotransferase 13 IU/L (<50); Albumin 3.6 g/dL (3.5-5.0); Alkaline Phosphatase 61 U/L (38-126); Aspartate Aminotransferase 26 IU/L (17-59); BUN Creatinine Ratio 20.3 (6-22); Bilirubin Total 0.3 mg/dL (0.2-1.3); Blood Urea Nitrogen 14 mg/dL (9-20); Calcium 8.9 mg/dL (8.4-10.2); Carbon Dioxide 27 mmol/L (22-32); Chloride 101 mmol/L (98-107); Estimated Glomerular Filt Rate > 60 mL/min (>60); Globulin 3.5 g/dL (1.7-4.1); Glucose 105 mg/dL (80-110); HEMOLYSIS < 15 (0-50); Potassium 3.5 mmol/L (3.4-5.1); Sodium 136 mmol/L (137-145); Total Protein 7.1 g/dL (6.3-8.2)
[2022-04-22 06:07] LABS: Cholesterol 103 mg/dL (140-199); HDL Cholesterol 42 mg/dL (40-60); LDL Cholesterol Calculated 47 mg/dL (<100); Triglycerides 68 mg/dL (35-150)
[2022-04-22] MEDS: CLOPIDOGREL 75 MG TABLET PO (08:11)
[2022-04-22] MEDS: TAMSULOSIN 0.4 MG CAPSULE PO (08:12)
[2022-04-22] MEDS: CITALOPRAM 10 MG TABLET 20 MG PO (08:12)
[2022-04-22] MEDS: methIMAzole 5 MG TABLET PO (08:12)
[2022-04-22] MEDS: ASPIRIN EC 81 MG TABLET PO (08:12)
[2022-04-22] MEDS: lisinopriL 5 MG TABLET PO (08:12)
[2022-04-22] MEDS: DIVALPROEX DR 250 MG TABLET PO ×2 (08:12→21:31)
[2022-04-22] MEDS: METOPROLOL IR 25 MG TABLET 12.5 MG PO ×2 (08:14→21:31)
[2022-04-22] MEDS: PANTOPRAZOLE 40 MG VIAL IV (08:14)
[2022-04-22 09:01] LABS: Creatine Kinase 119 U/L (55-170)
[2022-04-22 09:17] LABS: CKMB % Relative Index 2.3 % (1.5-5.0); Creatine Kinase MB 2.71 ng/mL (<2.37)
--- NOTE | 2022-04-22 10:46 | CM.DANOTE ---
Addendum entered by Tamanna Ruffin R.N. 04/22/22 12:56: Spoke to Cheryl at [facility] and updated her on patient. Let her know that spouse is looking at getting patient over to [facility], they were planning on assessing today to see if they would accept, but ended up here at the hospital. She will review. Faxed referral over to [facility] in [place], [facility], [facility] On the fax cover sheet, did indicate that spouse is looking at memory care, [facility], for manager terminal planning. P.T/O.T. have not yet worked with patient. As soon as notes are complete, will fax them as well. Addendum entered by Tamanna Ruffin R.N. 04/22/22 12:13: Met with patient's spouse, Cayla. Provided Senior Resource Book, and Medicare Choice List. Spouse indicated she has been touring facilities for memory care for about a month. She indicated her sister has also been helping her. Did give her a Medicaid application, but may not qualify, spouse indicated that he may be bringing in about $2900.00 a month. She also indicated that patient has a 401 K, and about $400,000 in his account, would help pay for memory care, then would hope to eventually switch over to Medicaid. She indicated, she had toured [facility], did not seem clean, and [facility] [place] as well. She did look at [facility]. At this time, she is hoping to get patient into [facility] in [place]. She had been speaking to Nadia, and she was supposed to assess patient in his home today. Let her know that this DC Vein Access Technician also called [facility], and have a message out to Nadia as well. She may be able to come here to see patient. Let spouse know it may be difficult placing patient in a skilled rehab, due to his dementia, and participation. At this time, he is deconditioned. Let her know that P.T. here in the hospital can work with patient, but barrier is his agitation, and senior living facilities may not be able to accomidate. Did let spouse that this DC urban and regional planner will go ahead and send referrals to senior living facilities. Encouraged her to make at least 3 choices off of the Medicare Choice List. Let her know that this DC Vein Access Technician will go ahead and send referrals to [facility], [facility], both [facility] to start out. He is Medicare, and confirmed inpatient as of 04-21. Goal would be rehab prior to [facility], but will find out the soonest that [facility] can accept. Original Note: DCP: Case received, EMR reviewed. Checked on patient, due to his advanced dementia, unable to get history of his baseline, but did speak to spouse, Cayla, via phone. Introduced self and role. Was able to complete DCP assessment based upon information currently available. Patient is a 76 year old male who admitted yesterday afternoon to the care of the hospitalist team. PCP: Dr. Tirado. Payer: confirmed: Medicare/[employer] PPO. Patient came to the hospitalist via ambulance secondary to a ground level fall. He had been found down in his garage, spouse found him when he returned. EMR had taken patient to the hospital, and was noted that his Troponin levels had increased. ER had attempted to transfer patient to higher level care for potential cardiac cath, but no beds available. Spouse, Cayla, had spoken to Dr. Askew, in agreement to not go through with the procedure, due to his dementia. Spoke to patient's spouse, she and spouse live here in [place]. She has been caring for him for the last 4 years. She indicated, it is too hard for her, she has been looking into facilities, and [facility] was supposed to assess patient. She has been assisting him with showers, taking him to appointments. It is uncertain if patient will be skillable due to his dementia, can add P.T. orders. He has noted some agitation while here. Called [facility], staff are not in, but left a message for marketing business analyst to call this DCP. Planning on having meeting with spouse here at the hospital this am. P: DCP to meet with spouse to discuss resources. Will add P.T. orders. Discharge Planning/Care Management CM Discharge Assessment Start: 04/22/22 09:32 Freq: Status: Active Protocol: Document 04/22/22 09:32 (Rec: 04/22/22 09:35 [id number]) Discharge Planning Assessment Assigned Teacher Tamanna Augustin, RN/Sanitation Tank Washer Advance Directives? Yes Advance Directives on File No History Provided By Patient,Significant Other, Medical Record Prior Living Arrangements House Household Members spouse Type of transporation used prior to Relies on Others admit Is patient alert and oriented? No: He is alert to self only Needs Assistance With Bathing,Meal Prep,Managing Medications,Home Chores / Shopping Caregiver for Another No Patient/Family Preference Nursing Home Facility Comment Will be difficult to place patient due to behaviors, but spouse is looking at [facility] . Discharge Plan Nursing Home Facility Transportation Arrangement facility Referrals Initiated Other Additional Comment Will meet with spouse today, patient may not be a good senior living candidate due to advanced dementia Medicare Choice List Provided Yes SNF/HH Preference Will provide with spouse today Whiteboard Updated in Patient Room with Yes name and ext. # of Teacher Review Status In Process Next Review Type Continued Stay Review
[2022-04-22] MEDS: POTASSIUM CHLORIDE 20 MEQ TAB 40 MEQ PO (12:24)
[2022-04-22] MEDS: MEMANTINE HCL 5 MG TABLET 10 MG PO ×2 (12:25→21:31)
--- NOTE | 2022-04-22 12:34 | OT.IP.EVAL ---
Current Diagnoses Non-ST elevation (NSTEMI) myocardial infarction (04/21/22) Past Medical History (Last Reviewed 04/19/22 @ 16:17 by Luz Hernandez DO) Actinic keratosis Anterior spinal artery compression syndromes, cervical region BPH w urinary obs/LUTS CAD (coronary artery disease) (~2001) Cervical spinal stenosis Chest pain Chronic diarrhea Chronic left-sided low back pain with left-sided sciatica Chronic seasonal allergic rhinitis COPD (chronic obstructive pulmonary disease) (~2009) Dementia Depression (~2015) Diarrhea Eczema Encounter for routine history and physical examination Enlarged prostate Exophthalmos of right eye Glaucoma Graves disease (~2004) Gum disease H/O circumcision H/O nephrolithotomy with removal of calculi Hearing loss History of blepharoplasty (~04/23/17) History of bronchitis History of cataract removal with insertion of prosthetic lens (~2015) History of coronary artery stent placement (~2004) History of eye surgery (~01/03/15) History of migraine History of strabismus surgery (~2002) History of total knee replacement (~09/24/18) Hypercholesterolemia Hyperlipidemia Hypertension (~2005) Kidney stones Left knee pain Left upper quadrant abdominal pain Left ureteral stone Obesity (BMI 30-39.9) Obstructive sleep apnea Ocular myasthenia gravis Osteoarthritis Previous back surgery (~2005) Ptosis of eyelid, left Right hydrocele Screen for colon cancer Thyroid disease Thyroid nodule (~2016) Vascular dementia Vision loss (~1945) Surgical History (Last Reviewed 04/19/22 @ 16:17 by Luz Hernandez DO) Anesthesia H/O circumcision History of blepharoplasty (~04/23/17) History of cataract removal with insertion of prosthetic lens (~2015) History of coronary artery stent placement (~2004) History of eye surgery (~01/03/15) History of placement of stent in anterior descending branch of left coronary artery (~2009) History of strabismus surgery (~2002) History of total knee replacement (~09/24/18) Previous back surgery (~2005) Occupational Therapy Inpatient Evaluation/Re-Eval M1 PT/OT-IP Prior Functional Status Start: 04/22/22 10:26 Freq: NEEDED Status: Active Protocol: Document 04/22/22 14:06 CGR (Rec: 04/22/22 14:54 CGR [id number]) Medical Review Prior Functional Status Medical History Reviewed No Communication Vascular dementia baseline Mobility and Gait Pt's reports that at baseline patient has a shuffling gait and uses a walker Activities of Daily Living and IADL's Pt's reports she helps him shower and dress himself. Pt needs assist with simple ADLs like washing face and brushing teeth. Pt is able to use a spoon inconsistently and typically eats using his hands. Social History Household Members spouse Living Arrangements House Number of Floors (Floors) One Floor Number of Stairs To Enter/Railing? 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 M1 PT/OT-IP Prior Functional Status Start: 04/22/22 14:06 Freq: NEEDED Status: Active Protocol: Document 04/22/22 14:06 CGR (Rec: 04/22/22 14:54 R [id number]) Medical Review Prior Functional Status Medical History Reviewed No Communication Vascular dementia baseline Mobility and Gait Pt's reports that at baseline patient has a shuffling gait and uses a walker Activities of Daily Living and IADL's Pt's reports she helps him shower and dress himself. Pt needs assist with simple ADLs like washing face and brushing teeth. Pt is able to use a spoon inconsistently and typically eats using his hands. Social History Household Members spouse Living Arrangements House Number of Floors (Floors) One Floor Number of Stairs To Enter/Railing? no stairs to enter Home Environment Walk in Shower Home Equipment Front Wheel Walker,Shower Seat with Backrest,Hand Held Shower,Grab Bars Near Toilet Employment Status Retired Additional Social History Comment Pt's states that she has been caring for him for ~4 years and is looking for snf care. M2 OT-IP Current Condition Start: 04/22/22 14:06 Freq: Status: Active Protocol: Document 04/22/22 14:06 CGR (Rec: 04/22/22 14:54 R [id number]) Occupational Therapy Current Condition Current Condition Evaluation Date 04/22/22 Treatment Diagnosis fall with elevated troponins Diagnosis Onset Date 04/21/22 M3 OT- IP Subjective and Pain Start: 04/22/22 14:06 Freq: Status: Active Protocol: Document 04/22/22 14:06 CGR (Rec: 04/22/22 14:54 R [id number]) OT- Subjective Occupational Therapy Visit Type Type Initial Evaluation Visit Start Time 12:04 Visit Stop Time 12:34 Total Visit Minutes 30 Notes pt's present throughout session. OT Pain Assessment Pain When Pain Assessed At Rest Pain Present Pain Present Denied Pain M4 OT- IP ADL's Start: 04/22/22 14:06 Freq: Status: Active Protocol: Document 04/22/22 14:06 CGR (Rec: 04/22/22 14:54 R [id number]) OT [id number] General Evaluation Self-Feeding Ability Minimal Assistance Comments OT Self-Feeding Comments pt eating sandwich when OT entered. Pt needs vc and visual cues to continue eating . OT ADL-Grooming General Evaluation Grooming Ability Moderate Assistance Areas Needing Assistance Face Washing Comments OT Grooming Comments for wiping mouth after coughing up flem OT ADL-Oral Care Comments Oral Care Comments not performed OT ADL-Dressing Comments OT Dressing Comments not performed OT ADL-Toileting Comments OT Toileting Comments not perfomed OT ADL-Bathing Comments OT Bathing Comments not performed M5 OT- IP IADL's Start: 04/22/22 14:06 Freq: Status: Active Protocol: Document 04/22/22 14:06 CGR (Rec: 04/22/22 14:54 R [id number]) OT-Instrumental Activities of Daily Living Deficits IADL Deficits Identified Deficits Home Safety Awareness Awareness of Need for Assistance at Home Decreased Awareness Ability to Problem Solve Emergency Unable to Problem Solve Situations Medication Management Medication Management Caregiver Administers Money Management Money Management Caregiver Provides Assistance Meal Preparation Meal Preparation Caregiver Provides Assist Ballistics Tester Ballistics Tester Caregiver Provides Assist Driving Driving Caregiver Provides Assist M6 OT- IP Functional Cognition Start: 04/22/22 14:06 Freq: Status: Active Protocol: Document 04/22/22 14:06 CGR (Rec: 04/22/22 14:54 R [id number]) Cognitive Factors Limiting Selfcare Function Cognitive Ability Level of Alertness Alert,Confusional State Patient Orientation Name Attention Span Ability Unable to Focus,Unable to Sustain Attention Cognitive Comments Cognitive Assessment Comments Pt with advanced dementia OT- Vision and Hearing OT- Hearing Assessment OT- Hearing Assessment WFL OT- Vision Assessment Vision Assessment Comments Pt has severe loss of vision from his R eye. Pt noted to have severe visual loss as seen with giving pt his sandwich. M7 OT- IP Mobility and Balance Start: 04/22/22 14:06 Freq: Status: Active Protocol: Document 04/22/22 14:06 CGR (Rec: 04/22/22 14:54 CGR [id number]) OT- Bed Mobility Assessment Supine to Sit Supine to Sit Assist Moderate Assistance,Maximum Assistance,1 Person Assistance Scooting Scooting to Edge of Bed Maximum Assistance,1 Person Assistance OT-Transfer Assessment Sit to and From Stand Sit to and from Stand Minimal Assistance,Moderate Assistance Transfers Transfer Ability Minimal Assistance,Moderate Assistance Technique Transfer Destination Bed,Chair Transfer Technique Stand Step Pivot Devices Transfer Assistive Devices Gait Belt,Front Wheeled Walker Comments Mobility Comments Pt was able to transfer to the chair but displays difficulty with all motor planning and following commands. Pt leans heavy to the R with sitting and has difficulty pushing weight through his R foot, noted with sit to stand specifically getting out of the chair. OT- Balance Assessment Sitting Balance and Reactions Static Sitting Balance Ability Fair Dynamic Sitting Balance Ability Poor M8 OT- IP Objective Assessments Start: 04/22/22 14:06 Freq: Status: Active Protocol: Document 04/22/22 14:06 CGR (Rec: 04/22/22 14:54 CGR [id number]) OT Gross Range of Motion Upper Extremity Range of Motion Assessment Within Functional Limits OT Strength Comments Strength Comments 5/5 OT- Coordination Assessment Comments Coordination Comments unable to follow commands to perform OT-Muscle Tone Assessment Muscle Tone WNL No OT Sensation Assessment Edema Edema Absent M9 OT- IP Assessment and Plan Start: 04/22/22 14:06 Freq: Status: Active Protocol: Document 04/22/22 14:06 CGR (Rec: 04/22/22 14:54 CGR [id number]) OT Summary Assessment and Plan Potential Rehabilitation Potential Good Analytic Complexity at Evaluation Moderate Summary OT Impairments Balance,Coordination, Functional Cognition, Functional Mobility,Self- Feeding,Grooming,Dressing, Toileting,Bathing,Toilet Transfers,Shower Transfers, Activity Tolerance Progress Towards Goals Slow Progress due to Medical Issues Assessment Summary Pt presents as a moderate complexity evaluation s/p admit for fall and elevated troponins. Pt has advanced dementia and was minimally active in his self care at baseline. Pt is at his baseline for all ADLs and IADLs but with declines to his functional mobility. Will defer functional mobility to P .T. to avoid duplication of services. No further OT needs. Frequency of Treatment Frequency Of Treatment Discharge Discharge Recommendations OT Discharge Recommendations SNF Rehab Transportation Needs at Discharge Wheelchair/Cabulance
--- NOTE | 2022-04-22 15:33 | PT.IIE ---
Current Diagnoses Non-ST elevation (NSTEMI) myocardial infarction (04/21/22) Surgical History (Last Reviewed 04/19/22 @ 16:17 by Luz Hernandez DO) Anesthesia History of placement of stent in anterior descending branch of left coronary artery (~2009) Medical History (Last Reviewed 04/19/22 @ 16:17 by Luz Hernandez DO) Actinic keratosis Anterior spinal artery compression syndromes, cervical region BPH w urinary obs/LUTS CAD (coronary artery disease) (~2001) Cervical spinal stenosis Chest pain Chronic diarrhea Chronic left-sided low back pain with left-sided sciatica Chronic seasonal allergic rhinitis COPD (chronic obstructive pulmonary disease) (~2009) Dementia Depression (~2015) Diarrhea Eczema Encounter for routine history and physical examination Enlarged prostate Exophthalmos of right eye Glaucoma Graves disease (~2004) Gum disease H/O nephrolithotomy with removal of calculi Hearing loss History of bronchitis History of migraine Hypercholesterolemia Hyperlipidemia Hypertension (~2005) Kidney stones Left knee pain Left upper quadrant abdominal pain Left ureteral stone Obesity (BMI 30-39.9) Obstructive sleep apnea Ocular myasthenia gravis Osteoarthritis Ptosis of eyelid, left Right hydrocele Screen for colon cancer Thyroid disease Thyroid nodule (~2016) Vascular dementia Vision loss (~1945) Physical Therapy Inpatient Evaluation/Re-Eval M1 PT/OT-IP Prior Functional Status Start: 04/22/22 10:26 Freq: NEEDED Status: Active Protocol: Document 04/22/22 14:06 CGR (Rec: 04/22/22 14:54 CGR [id number]) Medical Review Prior Functional Status Medical History Reviewed No Communication Vascular dementia baseline Mobility and Gait Pt's reports that at baseline patient has a shuffling gait and uses a walker Activities of Daily Living and IADL's Pt's reports she helps him shower and dress himself. Pt needs assist with simple ADLs like washing face and brushing teeth. Pt is able to use a spoon inconsistently and typically eats using his hands. Social History Household Members spouse Living Arrangements House Number of Floors (Floors) One Floor Number of Stairs To Enter/Railing? no stairs to enter Home Environment Walk in Shower Home Equipment Front Wheel Walker,Shower Seat with Backrest,Hand Held Shower,Grab Bars Near Toilet Employment Status Retired Additional Social History Comment Pt's states that she has been caring for him for ~4 years and is looking for chcf care. M1 PT/OT-IP Prior Functional Status Start: 04/22/22 14:06 Freq: NEEDED Status: Active Protocol: Document 04/22/22 14:06 CGR (Rec: 04/22/22 14:54 CGR [id number]) Medical Review Prior Functional Status Medical History Reviewed No Communication Vascular dementia baseline Mobility and Gait Pt's reports that at baseline patient has a shuffling gait and uses a walker Activities of Daily Living and IADL's Pt's reports she helps him shower and dress himself. Pt needs assist with simple ADLs like washing face and brushing teeth. Pt is able to use a spoon inconsistently and typically eats using his hands. Social History Household Members spouse Living Arrangements House Number of Floors (Floors) One Floor Number of Stairs To Enter/Railing? no stairs to enter Home Environment Walk in Shower Home Equipment Front Wheel Walker,Shower Seat with Backrest,Hand Held Shower,Grab Bars Near Toilet Employment Status Retired Additional Social History Comment Pt's states that she has been caring for him for ~4 years and is looking for engineer systems care. M2 PT-IP Current Condition Start: 04/22/22 10:26 Freq: NEEDED Status: Active Protocol: Document 04/22/22 11:24 AMB (Rec: 04/22/22 11:38 AMB [id number]) Physical Therapy Current Condition Current Condition Evaluation Date 04/22/22 Treatment Diagnosis GLF/vascular dementia Onset Date 04/19/22 M3 PT-IP Subjective Start: 04/22/22 10:26 Freq: NEEDED Status: Active Protocol: Document 04/22/22 11:24 AMB (Rec: 04/22/22 11:38 AMB [id number]) Subjective Physical Therapy Visit Type Type Initial Evaluation Visit Start Time 11:00 Visit Stop Time 11:30 Total Visit Minutes 30 M4 PT-IP Mobility and Gait Start: 04/22/22 10:26 Freq: NEEDED Status: Active Protocol: Document 04/22/22 11:24 AMB (Rec: 04/22/22 11:38 AMB [id number]) PT-Bed Mobility Assessment Rolling Type of Rolling Log Rolling,Roll to Left Level of Assist Minimal Assistance Supine to Sit Supine to Sit Moderate Assistance,1 Person Assistance Sit to Supine Sit to Supine Minimal Assistance,1 Person Assistance Scooting Scooting to Edge of Bed Moderate Assistance PT-Transfer Assessment Sit to and From Stand Sit to and from Stand Minimal Assistance,1 Person Assistance,Use of Upper Extremities Equipment Transfer Assistive Device Bed Rail,Gait Belt,Front Wheeled Walker Transfers Transfer Destination Bed Transfer Technique Stand Step Pivot Transfer Ability Level of Assist Minimal Assistance Comments Mobility Comments David has a difficult time with motor planning. He is challenged by cues such as sit down, and sometimes needs hand over hand placement to perform mobility, for example he needed about 2 minutes of instruction to hold on to the FWW, his eyesight may be a limiting factor. That said, when he understood what was asked of him, he didn't need more than Wilian to perform the transfer. Gait Assessment Gait Gait Assistance Required: Moderate Assistance Distance (Feet) 5 Assistive Devices Assistive Device Gait Belt,Front Wheeled Walker Gait Deviations General Gait Pattern Ataxic,Decreased Stride Length ,Decreased Feet Clearance, Festinating,Flexed Trunk,Wide Based Gait Factors Limiting Gait Function Factors Limiting Gait Function Decreased Activity Tolerance, Decreased Strength,Difficulty Following Directions, Incoordination,Poor Balance, Poor Safety Awareness Comments Gait Comments David has a shuffling gait pattern with a WBOS. Spouse says that this is fairly baseline for the patient. Patient was able to ambulate 5 -8 feet, but became fatigued and needed to sit down. Pt needed ModA- closer to MaxA when trying to take a step backwards to get close to the bed to prevent LOB posteriorly . PT-Balance Assessment Sitting Balance and Reactions Static Sitting Balance Ability Fair Dynamic Sitting Balance Ability Poor Standing Balance and Reactions Static Standing Balance Ability Poor Dynamic Standing Balance Ability Poor Device Used FWW M5 PT-IP Objective Assessments Start: 04/22/22 10:26 Freq: NEEDED Status: Active Protocol: Document 04/22/22 11:24 AMB (Rec: 04/22/22 15:33 AMB [id number]) Orientation Orientation/Cognition Level of Alertness Confusional State Safety Awareness Decreased Safety Awareness Memory Description Short Term Impaired,Grey Percher Impaired Strength Comments Strength Comments unable to follow commands for testing M7 PT-IP Assessment and Plan Start: 04/22/22 10:26 Freq: NEEDED Status: Active Protocol: Document 04/22/22 11:24 AMB (Rec: 05/30/22 15:33 AMB [id number]) PT Summary Assessment and Plan Potential Rehabilitation Potential Fair Status of Condition at Evaluation Evolving Summary Impairments Pain,Strength,Balance, Sensation,Bed Mobility, Transfers,Gait Assessment Summary David was admitted due to GLF at home in the context of advancing vascular dementia. At this point his is unable to manage his increasing needs and he is unable to walk for more than 5 -10 feet without fatigue/near falls. He has had multiple falls at home and needs assistance for bed mobility, dressing, bathing at baseline. He would benefit from SNF placement to work on improving his strength, gait, and transfer safety, so that he can walk with less assistance and require less assistance with transfers. Goals Bed Mobility Goal Minimal Assistance Transfer Goal Minimal Assistance,Front Wheeled Walker Gait Goal Moderate Assistance Gait Distance 50 Frequency of Treatment Frequency Of Treatment Once a Day Treatment Plan Physical Therapy Treatment Plan Bed Mobility Training,Gait Training,Therapeutic Exercise, Neuromuscular Re-ed Recommendations To Nursing Amount of Assist Needed 2 Person Assist Discharge Recommendations PT Discharge Recommendations SNF Rehab Transportation Needs at Discharge Wheelchair/Cabulance
--- NOTE | 2022-04-22 15:35 | P.PN_ITS ---
Subjective Subjective Interval history: Daily followup on patient. Patient has no new complaints. Exam Vital Signs (past 8 hours): - 04/22/22 08:12 04/22/22 08:16 04/22/22 10:48 Temperature 98.2 F 98.1 F Pulse Rate 75 78 74 Respiratory Rate 18 17 Blood Pressure 155/74 H 155/74 H 136/56 L Pulse Oximetry 93 95 04/22/22 14:55 Temperature 98.9 F Pulse Rate 83 Respiratory Rate 17 Blood Pressure 117/60 Pulse Oximetry 96 Oxygen Delivery Method Room Air Oxygen Flow Rate 0 Objective ECG Impression: Exam Narrative: General:? Alert male and oriented only to person who is confused but not an acute distress HEENT:? No trauma or bruising, chronic ptosis left greater than right, pupils equal and reactive Neck:? No lymphadenopathy Lungs:? Clear to auscultation Heart:? Normal S1 and S2, regular rate and rhythm, without murmur Abdomen:? Soft, nontender, BS normal Extremities:? Warm, not edematous Neurological:? Oriented to person only, not able to talk in full sentences due to aphasia, is able to follow simple commands, UE strength 5/5 bilaterally, LE strength 5/5 bilaterally Integument:? No skin ulcerations or breakdown Labs Result Diagrams: 04/22/22 05:08 04/22/22 05:08 Labs: Laboratory Results - last 24 hr 04/22/22 04/22/22 04/22/22 05:08 05:08 05:08 WBC 12.2 H RBC 3.72 L Hgb 10.0 L Hct 30.4 L MCV 81.7 MCH 26.8 MCHC 32.8 RDW 15.2 H Plt Count 440 H Neut % (Auto) 79.2 H Lymph % (Auto) 13.7 L Archuleta % (Auto) 5.3 Eos % (Auto) 1.5 L Baso % (Auto) 0.3 Neut # (Auto) 9700 H Lymph # (Auto) 1700 Archuleta # (Auto) 600 Eos # (Auto) 200 Baso # (Auto) 0 APTT 54 H D Sodium 136 L Potassium 3.5 Chloride 101 Carbon Dioxide 27 BUN 14 Creatinine 0.69 Estimated GFR > 60 BUN/Creatinine Ratio 20.3 Glucose 105 Calcium 8.9 Total Bilirubin 0.3 AST 26 ALT 13 Alkaline Phosphatase 61 Total Creatine Kinase CK-MB (CK-2) CK-MB (CK-2) Rel Index Troponin I Total Protein 7.1 Albumin 3.6 Globulin 3.5 Albumin/Globulin Ratio 1.0 Triglycerides Cholesterol LDL Cholesterol, Calc HDL Cholesterol 04/22/22 04/22/22 05:08 05:49 WBC RBC Hgb Hct MCV MCH MCHC RDW Plt Count Neut % (Auto) Lymph % (Auto) Archuleta % (Auto) Eos % (Auto) Baso % (Auto) Neut # (Auto) Lymph # (Auto) Archuleta # (Auto) Eos # (Auto) Baso # (Auto) APTT Sodium Potassium Chloride Carbon Dioxide BUN Creatinine Estimated GFR BUN/Creatinine Ratio Glucose Calcium Total Bilirubin AST ALT Alkaline Phosphatase Total Creatine Kinase 119 D CK-MB (CK-2) 2.71 H CK-MB (CK-2) Rel Index 2.3 Troponin I 1.240 H* Total Protein Albumin Globulin Albumin/Globulin Ratio Triglycerides 68 Cholesterol 103 L LDL Cholesterol, Calc 47 HDL Cholesterol 42 PFSH Medical History Actinic keratosis Anterior spinal artery compression syndromes, cervical region BPH w urinary obs/LUTS CAD (coronary artery disease) (~2001) Cervical spinal stenosis Chest pain Chronic diarrhea Chronic left-sided low back pain with left-sided sciatica Chronic seasonal allergic rhinitis COPD (chronic obstructive pulmonary disease) (~2009) Dementia Depression (~2015) Diarrhea Eczema Encounter for routine history and physical examination Enlarged prostate Exophthalmos of right eye Glaucoma Graves disease (~2004) Gum disease H/O nephrolithotomy with removal of calculi Hearing loss History of bronchitis History of migraine Hypercholesterolemia Hyperlipidemia Hypertension (~2005) Kidney stones Left knee pain Left upper quadrant abdominal pain Left ureteral stone Obesity (BMI 30-39.9) Obstructive sleep apnea Ocular myasthenia gravis Osteoarthritis Ptosis of eyelid, left Right hydrocele Screen for colon cancer Thyroid disease Thyroid nodule (~2016) Vascular dementia Vision loss (~1945) Surgical History Anesthesia H/O circumcision History of blepharoplasty (~04/23/17) History of cataract removal with insertion of prosthetic lens (~2015) History of coronary artery stent placement (~2004) History of eye surgery (~01/03/15) History of placement of stent in anterior descending branch of left coronary artery (~2009) History of strabismus surgery (~2002) History of total knee replacement (~09/24/18) Previous back surgery (~2005) Family History Father Accident Mother History of heart disease Sister Cancer Social History marital status: household members: spouse lives independently: Yes caregiver/support person: Yes () housing: house other: gardening, working in his shop Smoking Status: Former smoker alcohol intake: current caffeine: Yes Assessment & Plan Assessment & Plan narrative: 1. NSTEMI - on heparin for 48-72 hours, ASA 81 mg, metoprolol 12.5 mg b.i.d., atorvastatin 40 mg daily, echo ordered, lipid panel ordered. Spouse not wanting cardiac cath. Troponin is decreasing. 2. Ground level fall Has worsening mobility, head CT no acute, PT/OT 3. Hypertension On lisinipril 5 mg daily. Metoprolol will be of benefit as well. 4. Graves disease Treating with methimazole 5 mg q.d. 5. Vascular dementia with sundowning behavior Donepezil and memantine, Depakote 250 mg b.i.d. Quetiapine 25 mg at 4:00 p.m. daily for sundowning Citalopram 20 mg q.d. (follow due to QTC prolongation risk with quetiapine and citalopram) Spouse looked into [facility] memory care facility in [facility], discussed with spouse to get him in to SNF short-term stay rehab and then to a memory care facility for long-term care Time Spent With Patient Critical Care time: I spent a total of [] minutes of critical care time on this patient's care today; this time is exclusive of procedural time.
[2022-04-22] MEDS: QUETIAPINE 25 MG TABLET PO (17:29)
[2022-04-22] MEDS: DONEPEZIL 5 MG TABLET 10 MG PO (21:31)
[2022-04-23] VITALS (7 sets, daily range): BP systolic 124–160; BP diastolic 55–74; PULSE 68–82; RESP 17–18; TEMP 36.5–36.8; O2SAT 94–97
[2022-04-23] MEDS: HEPARIN DRIP 25,000 UNIT/500 ML IV.SOLN 17 UNIT IV ×2 (01:50→02:36)
[2022-04-23 05:32] LABS: PTT Partial Thromboplastin Tim 61 SECONDS (26.4-36.2)
[2022-04-23] MEDS: PANTOPRAZOLE DR 40 MG TABLET PO (06:10)
[2022-04-23] MEDS: ASPIRIN EC 81 MG TABLET PO (08:19)
[2022-04-23] MEDS: MEMANTINE HCL 5 MG TABLET 10 MG PO ×2 (08:20→21:40)
[2022-04-23] MEDS: TAMSULOSIN 0.4 MG CAPSULE PO (08:20)
[2022-04-23] MEDS: METOPROLOL IR 25 MG TABLET 12.5 MG PO ×2 (08:21→21:40)
[2022-04-23] MEDS: lisinopriL 5 MG TABLET PO (08:21)
--- NOTE | 2022-04-23 10:20 | CM.DPC ---
Addendum entered by Tamanna Ruffin R.N. 04/23/22 14:34: Patient is having a barium swallow evaluation as recommended by speech therapist, as patient is having difficulty swallowing.. He was just taken down stairs for the procedure. Patient is weak, needs cueing for all talks, but has been compliant, difficulty understanding directions. Will see how he does with procedure, and goals of care as well. Original Note: DCP Cont: April from [facility] had called back, stated, she will need to run the referral to her team, most likely will not be able to accept patient, but will double check. Lisa from [facility] has declined patient. Left messages with [facility] and [facility] and asked Latosha at [facility] to review. Spoke to Nadia at [facility]. She stated that she has been speaking to patient's spouse, Cayla, who had told her that patient may be going to rehab first. Let Nadia know, as was explained to spouse, that skilled rehab facilities have already turned patient down secondary to his dementia, but have not heard from a couple facilities as of yet. Let her know, realistically, may need to go directly to [facility]. Nadia is planning on coming to the hospital tomorrow at approximately 11:00 for an assessment, and will complete the paper work. She did indicate, they could potentially accept or Friday. Let Nadia know that if one of the other rehab facilties accepts patient, and he is stable, will work on getting him to rehab first. At this time, patient is not medically stable, he was having some chest pain, and will be seeing speech therapy today. P: [facility] to continue to work on plan. Asked Francisca to fax [facility] his H&P, along with med sheets. [facility] fax number is: [phone]. Their phone number is: [phone]. Have not yet heard from [facility] as of yet, [facility] administration is reviewing, Aly, have a call out. [facility], have not yet heard back. Fay at [facility], does not think that they can accomidate. Tamanna Ruffin RN/Play Writer
--- NOTE | 2022-04-23 10:50 | CM.DPNOTE ---
Faxed referral packet to [facility] per Carrie [phone]. Francisca Choudhury CM Assist.
--- NOTE | 2022-04-23 12:11 | PC.NURSE ---
[address] Navarrete that pt c/o sharp chest pain in center of chest and abdomen, also notified that pt refused the rest of morning medications after taking aspirin, namenda, metoprolol, lisinopril, and flomax. Dr. Navarrete at bedside to see pt.
--- NOTE | 2022-04-23 12:17 | PT.IPTN ---
Current Diagnoses Non-ST elevation (NSTEMI) myocardial infarction (04/21/22) Physical Therapy Treatment Note M2 PT-IP Current Condition Start: 04/22/22 10:26 Freq: NEEDED Status: Active Protocol: Document 04/22/22 11:24 AMB (Rec: 04/22/22 11:38 AMB [id number]) Physical Therapy Current Condition Current Condition Evaluation Date 04/22/22 Treatment Diagnosis GLF/vascular dementia Onset Date 04/19/22 M3 PT-IP Subjective Start: 04/22/22 10:26 Freq: NEEDED Status: Active Protocol: Document 04/23/22 11:57 KS (Rec: 04/23/22 12:38 KS [id number]) Subjective Physical Therapy Visit Type Type Treatment Note Visit Start Time 11:57 Visit Stop Time 12:17 Total Visit Minutes 20 Notes Pts present during treatment. Number of CANDY POLISHER Visits 1 M4 PT-IP Mobility and Gait Start: 04/22/22 10:26 Freq: NEEDED Status: Active Protocol: Document 04/23/22 11:57 KS (Rec: 04/23/22 12:38 KS [id number]) PT-Bed Mobility Assessment Supine to Sit Supine to Sit Maximum Assistance,1 Person Assistance,Head of Bed Elevated Sit to Supine Sit to Supine Maximum Assistance,1 Person Assistance,Head of Bed Elevated Scooting Scooting to Edge of Bed Maximum Assistance PT-Transfer Assessment Sit to and From Stand Sit to and from Stand Moderate Assistance,1 Person Assistance Equipment Transfer Assistive Device Gait Belt,Front Wheeled Walker Transfers Transfer Destination Bed Transfer Technique Stand Step Pivot Transfer Ability Level of Assist Maximum Assistance,1 Person Assistance Comments Mobility Comments Pt in bed upon arrival w/ in room. Agreeable to get out of bed. Pt Max A and max cues for sup<>sit and scooting EOB . Pt w/ posterior lean and stating he feels scared of falling forward. Pt sit<>stand w/ FWW Mod A and cues. Upon standing, pt required max verbal and tactile cues to avoid posterior lean and to fix DEB. Pt unable to follow cues to step laterally towards HOB and had posterior LOB neeidng Mod A to recover. Pt then turned and took a few small shuffling steps towards HOB w/ FWW and Max A for balance and FWW management. Max A for sit<>sup and repositioning in bed. Pt states too fatigued to perform LE exercises. Gait Assessment Gait Gait Assistance Required: Maximum Assistance Distance (Feet) 2 Assistive Devices Assistive Device Gait Belt,Front Wheeled Walker Gait Deviations General Gait Pattern Ataxic,Decreased Stride Length ,Decreased Feet Clearance, Festinating,Flexed Trunk,Wide Based Gait Factors Limiting Gait Function Factors Limiting Gait Function Decreased Activity Tolerance, Decreased Strength,Difficulty Following Directions, Incoordination,Poor Balance, Poor Safety Awareness Comments Gait Comments Please refer to mobility section for details. PT-Balance Assessment Sitting Balance and Reactions Static Sitting Balance Ability Fair Dynamic Sitting Balance Ability Poor Standing Balance and Reactions Static Standing Balance Ability Poor Dynamic Standing Balance Ability Poor Device Used FWW M5 PT-IP Objective Assessments Start: 04/22/22 10:26 Freq: NEEDED Status: Active Protocol: Document 04/22/22 11:24 AMB (Rec: 04/22/22 15:33 AMB [id number]) Orientation Orientation/Cognition Level of Alertness Confusional State Safety Awareness Decreased Safety Awareness Memory Description Short Term Impaired,Boat Rigger Impaired Strength Comments Strength Comments unable to follow commands for testing M6 PT-IP Treatment Start: 04/22/22 10:26 Freq: NEEDED Status: Active Protocol: Document 04/23/22 12:38 KS (Rec: 04/23/22 12:38 KS [id number]) Physical Therapy Treatment Education Education Provided Safety M7 PT-IP Assessment and Plan Start: 04/22/22 10:26 Freq: NEEDED Status: Active Protocol: Document 04/23/22 11:57 KS (Rec: 04/23/22 12:38 KS [id number]) PT Summary Assessment and Plan Potential Rehabilitation Potential Fair Status of Condition at Evaluation Evolving Summary Impairments Pain,Strength,Balance, Sensation,Bed Mobility, Transfers,Gait Assessment Summary Pt requiring Max A for bed mobility, Mod A for sit<>stand , Max A for a few feet ambulation w/ FWW and max verbal and tactile cues to complete all tasks. Pt w/ quick approach to fatigue and poor balance. He had posterior LOB requiring Mod A to recover and accoridng to is worse than baseline. He is a high fall risk and at this time is unsafe to go home due to increased need for assist, weakness, and poor safety. He would benefit from SNF to improve strength and transfer safety. Goals Bed Mobility Goal Minimal Assistance Transfer Goal Minimal Assistance,Front Wheeled Walker Gait Goal Moderate Assistance Gait Distance 50 Frequency of Treatment Frequency Of Treatment Once a Day Treatment Plan Physical Therapy Treatment Plan Bed Mobility Training,Gait Training,Therapeutic Exercise, Neuromuscular Re-ed Recommendations To Nursing Amount of Assist Needed 2 Person Assist Discharge Recommendations PT Discharge Recommendations SNF Rehab Transportation Needs at Discharge Wheelchair/Cabulance
--- NOTE | 2022-04-23 12:36 | PC.NURSE ---
0820 Gave pt oral meds and noticed some coughing and difficulty with swallowing, held A.M. oral medications and notified Dr. Navarrete. Ordered speech consult. 1145 Speech therapy saw pt and completed bedside swallow evaluation. Speech therapist recommended NPO and MBS scheduled at 1430.
--- NOTE | 2022-04-23 12:41 | ST.IPCSEOM ---
Visit Care Team Role Provider Type Jarrell Maldonado MD Referring Provider Physician Specialty: Emergency Medicine Address: [address] [place] [address], [id number] Email: [email or web address] Emergency Provider Physician Specialty: Emergency Medicine Address: [address] [place] [address], [address] Email: [email or web address] Askew MD Admit Provider Physician Attending Provider Specialty: Internal Medicine Address: [address] [place] [address], [address] Email: [email or web address] Current Diagnoses Non-ST elevation (NSTEMI) myocardial infarction (04/21/22) Past Medical History (Last Reviewed 04/19/22 @ 16:17 by Luz Hernandez DO) Actinic keratosis (Medical) Anterior spinal artery compression syndromes, cervical region (Medical) BPH w urinary obs/LUTS (Medical) CAD (coronary artery disease) (Medical ~2001) s/p SHERIN to RCA 2004 and SHERIN to LCx 2009 Cervical spinal stenosis (Medical) Chest pain (Medical) Chronic diarrhea (Medical) Chronic left-sided low back pain with left-sided sciatica (Medical) Chronic seasonal allergic rhinitis (Medical) COPD (chronic obstructive pulmonary disease) (Medical ~2009) with chronic cough Dementia (Medical) Depression (Medical ~2015) Diarrhea (Medical) R/T medications Eczema (Medical) Encounter for routine history and physical examination (Medical) Enlarged prostate (Medical) Exophthalmos of right eye (Medical) Glaucoma (Medical) Surgical repair Graves disease (Medical ~2004) H/O decompression surgery both eyes Gum disease (Medical) H/O circumcision (Medical) H/O nephrolithotomy with removal of calculi (Medical) Hearing loss (Medical) hearing aids History of blepharoplasty (Medical ~04/23/17) Eye surgery to remove excess skin History of bronchitis (Medical) History of cataract removal with insertion of prosthetic lens (Medical ~2015) Left History of coronary artery stent placement (Medical ~2004) Right coronary artery History of eye surgery (Medical ~01/03/15) Eye decompression surgery for Grave's History of migraine (Medical) History of strabismus surgery (Medical ~2002) Eye surgery to align eyes History of total knee replacement (Medical ~09/24/18) Hypercholesterolemia (Medical) Hyperlipidemia (Medical) Hypertension (Medical ~2005) Kidney stones (Medical) Left knee pain (Medical) Left upper quadrant abdominal pain (Medical) Left ureteral stone (Medical) basket removal Obesity (BMI 30-39.9) (Medical) Obstructive sleep apnea (Medical) Ocular myasthenia gravis (Medical) Osteoarthritis (Medical) Previous back surgery (Medical ~2005) Surgery for ruptured disc in spine Ptosis of eyelid, left (Medical) Right hydrocele (Medical) Screen for colon cancer (Medical) Thyroid disease (Medical) Thyroid nodule (Medical ~2016) Vascular dementia (Medical) Vision loss (Medical ~194) Right eye severe vision loss Speech-Language Pathology Swallow Evaluation SENIOR PATROL AGENT Clinical Swallow Evaluation Start: 04/23/22 12:26 Freq: Status: Active Protocol: Document 04/23/22 12:26 [email or web address] (Rec: 04/23/22 12:41 ZS [id number]) Clinical Swallow Evaluation Session Time Visit Start Time 11:45 Visit Stop Time 12:05 Total Visit Minutes 20 Setting Assessment Location Acute Care Visit Type Note Type Initial evaluation Next Note Type Next Note Type Treatment Note Patient Information Identification Type Name,Wristband History Per H&P: 76-year-old male with history of CAD, prior coronary stents, LBBB, vascular dementia, Graves disease with ophthalmopathy, ocular myasthenia gravis, right eye severe vision loss, BREA initially presented to ED on April 19 after an unwitnessed ground level fall at home. Patient lives with spouse who is sole caregiver. She had left the house for just about an hour when returned home and found him down on the garage floor. Medics were called and noted he had a near-syncopal episode with standing him up. He was brought to the emergency department. In the ED noted to have mildly elevated troponin with significant increasing levels consistent with acute AL. EKG showed prior left bundle branch block. Patient has advanced dementia and does not recall circumstances around the fall. He was at PCP office 2 days prior complaining of left upper abdominal pain after eating and prescribed sucralfate which he had not yet started. On further discussion with his spouse, it became apparent that his quality of life is so diminished with his advanced dementia that cardiac catheterization may not be best option. Spouse does note that patient's cognitive and physical functioning has been declining over last several years and he needs help with bathing, dressing, has been gradually losing weight and as well as has worsening gait with history of falls. Spouse also notes that patient was started on Depakote just recently by his neurologist for where he is getting agitated and verbally abusive. Subjective Observations Pt was laying in bed with mouth wide open and at bedside when SENIOR PATROL AGENT arrived. He agreed to participate in bedside swallow evaluation and was re-positioned to upright position. Reported by Patient Other Symptoms Coughing,Pain on swallowing, Weight loss Comment reported coughing with food and liquid and abdominal pain when eating. Current Diet Regular,Thin liquids Baseline Feeding Method Needs some assistance Objective Assessment Mental Status Alert,Responsive,Cooperative Oral Integrity WFL Dentition Within normal limits Lip Function Moderate impairment Observation of Lips at Rest Symmetrical Pucker Reduced range of motion, Reduced strength Lip Retraction Reduced range of motion Alternating Pucker/Lip Retraction Reduced range of motion, Incoordination Tongue Function Moderate impairment Observations of Tongue at Rest Within normal limits Tongue Protrusion Reduced range of motion Tongue Retraction Within normal limits Tongue Lateralization Reduced range of motion, Incoordination Jaw Function Within normal limits Observations of Jaw at Rest Within normal limits Jaw Opening Within normal limits Jaw Closing Within normal limits Hard/Soft Palate Function Within normal limits Observations of Hard/Soft Palate Within normal limits Comment Pt required multiple repetitions of instructions to complete exercises. Incoordination observed for smile/pucker and initial pucker movement. Limited ROM in tongue, with pt unable to elevate tongue tip and reduced ability to lower tongue tip. Dentition present and WFL. Jaw movement WNL, though delayed reaction when following directions. Pt was uable to hold air in his cheeks, though unclear if this is due to lack of labial seal or coordination of oral movements . Food and Liquid Trials Position During Assessment Upright (90 degrees),In bed Liquids Trialed Thin Administration Type Straw Oral Impairment Within normal limits Oral Phase Comments No anterior loss of bolus, a/p propulsion WNL. No oral residue observed following trial of thin water through straw cup. Pt did not want to try additional trials. Pharyngeal Impairment Severely impaired Pharyngeal Phase Comments Pt exhibited weak cough and wet/gurgly vocal quality following small sip of thin water through straw cup. Pt reported water tasted bad and did not want to try juice. Emesis following initial trial. Discontinued assessment due to concern for aspiration and emesis. Recommend NPO diet and modified barium swallow study to inform plan of care. Comment Unable to assess as a single trial was completed. Findings Swallowing Function Pharyngeal phase dysphagia Severity of Swallow Impairment Moderately-severely impaired Contributing Factors to Swallow Reduced alertness or attention Impairment ,Difficulty following directions,Reduced oral strength/coordination/ sensation,Impaired airway protection,Excessive pharyngeal residue Comment Suspect moderately-severe pharyngeal phase dysphagia characterized by impaired airway protection, reduced oral coordination, and excessive pharyngeal residue, however, a modified barium swallow study is needed to confirm. Scheduled modified barium swallow study for today (04/23/22) at 14:30. Pt is at high risk for aspiration and it is recommended he remain NPO until modified barium swallow study can be completed . Impact on Safety and Functioning Risk for aspiration Recommendations Instrumental Assessment Yes Swallowing Treatment Yes Recommended Solids Nothing by Mouth Recommended Liquids Nothing by Mouth Medication Recommendations Not Recommended by Mouth Education Patient/Caregiver Education Described results of evaluation,Patient expressed understanding of evaluation, Patient expressed agreement with goals & treatment plans, Family/caregivers expressed understanding of evaluation, Family/caregivers expressed agreement with goals & treatment plans,Patient expressed understanding of safety precautions,Patient expressed understanding of feeding recommendations,Family /caregivers expressed understanding of safety precautions,Family/caregivers expressed understanding of feeding recommendations, Patient requires further education/training,Family/ caregivers require further education/training Goals Short-term Goals Complete modified barium swallow study
--- NOTE | 2022-04-23 12:42 | DI.RAD.S_ITS ---
PROCEDURE: FL BARIUM SWALLOW W SPEECH INDICATIONS: nause vomiting uunable to swallow water. COMPARISON: None. TECHNIQUE: Examination was conducted in conjunction with speech pathology per standard protocol. In the lateral projection, filming was performed of the patient swallowing. AP projection filming may also be performed with patient swallowing. COMPARISON: FINDINGS: Function: The oral preparatory phase appears normal, with proper containment. The subsequent oral propulsive phase, pharyngeal phase, and esophageal phase of swallowing also appear normal with all proffered substances. Laryngotracheal aspiration noted with thin liquids. No laryngotracheal aspiration or penetration identified with thick liquids, paste or solid substances. There was vallecular pooling with all proper substances which was not cleared with repeat swallowing.. Morphology: No cricopharyngeal bar is identified. No cervical esophageal webs. No Zenker's diverticulum. No strictures. IMPRESSION: 1. Silent laryngotracheal aspiration with thin liquids. 2. Pathologic bilateral vallecular pooling. Dictated by: Charity Leroy MD, PhD on 04/23/2022 at 16:05 Approved by: Charity Leroy MD, PhD on 04/23/2022 at 16:11
--- NOTE | 2022-04-23 12:48 | PM.PN.1 ---
Subjective Subjective Interval history: Daily Hospitalist visit. This AM with breakfast, nausea and vomiting with pain in the epigastric area. Pain subsided after vomiting. EKG has PVCs but no ST changes. Patient then had pain in the rectum and subsequent large bowel movement. EXCHANGE ARCHITECT did initial evaluation and could not swallow properly water. Discussed with and EXCHANGE ARCHITECT and will do MBS. Tash thinks he has been complaining of stomach pain for swhile and she is concerned he has an ulcer. Advised will put patient on IV anti-acid medication. Exam Vital Signs (past 8 hours): - 04/23/22 07:00 04/23/22 08:21 04/23/22 11:00 Temperature 98.0 F 98.3 F Pulse Rate 68 68 77 Respiratory Rate 17 17 Blood Pressure 139/64 139/64 160/74 H Pulse Oximetry 94 95 Oxygen Delivery Method Room Air Oxygen Flow Rate 0 Narrative Exam Narrative: Initial exam when epigastric apin and vomiting: General: Patient appears unwell until vomiting compete and then perked up. Resp: Chest clear no wheezes or crackles. Cardiac: heart sounds normal, peripheral pulses normal Abdomen: Discomfort on palpation of epigastric area. : Not done. MSK: able to move all extremities. Skin: No lesions or rashes. Objective Labs Result Diagrams: 04/22/22 05:08 04/22/22 05:08 Labs: Laboratory Results - last 24 hr 04/23/22 04:57 APTT 61 H PFSH Medical History Actinic keratosis Anterior spinal artery compression syndromes, cervical region BPH w urinary obs/LUTS CAD (coronary artery disease) (~2001) Cervical spinal stenosis Chest pain Chronic diarrhea Chronic left-sided low back pain with left-sided sciatica Chronic seasonal allergic rhinitis COPD (chronic obstructive pulmonary disease) (~2009) Dementia Depression (~2015) Diarrhea Eczema Encounter for routine history and physical examination Enlarged prostate Exophthalmos of right eye Glaucoma Graves disease (~2004) Gum disease H/O nephrolithotomy with removal of calculi Hearing loss History of bronchitis History of migraine Hypercholesterolemia Hyperlipidemia Hypertension (~2005) Kidney stones Left knee pain Left upper quadrant abdominal pain Left ureteral stone Obesity (BMI 30-39.9) Obstructive sleep apnea Ocular myasthenia gravis Osteoarthritis Ptosis of eyelid, left Right hydrocele Screen for colon cancer Thyroid disease Thyroid nodule (~2016) Vascular dementia Vision loss (~1945) Surgical History Anesthesia H/O circumcision History of blepharoplasty (~04/23/17) History of cataract removal with insertion of prosthetic lens (~2015) History of coronary artery stent placement (~2004) History of eye surgery (~01/03/15) History of placement of stent in anterior descending branch of left coronary artery (~2009) History of strabismus surgery (~2002) History of total knee replacement (~09/24/18) Previous back surgery (~2005) Family History Father Accident Mother History of heart disease Sister Cancer Social History marital status: household members: spouse lives independently: Yes caregiver/support person: Yes () housing: house other: gardening, working in his shop Smoking Status: Former smoker alcohol intake: current caffeine: Yes Assessment & Plan Assessment & Plan narrative: 1. NSTEMI - on heparin for 48-72 hours - will stop, ASA 81 mg, metoprolol 12.5 mg b.i.d., atorvastatin 40 mg daily, echo ordered, lipid panel ordered. Spouse not wanting cardiac cath. Troponin is decreasing. 2. Ground level fall Has worsening mobility, head CT no acute, PT/OT 3. Hypertension, control could be better. On lisinipril 5 mg daily. Increase to 10 mg daily. Metoprolol will be of benefit as well. 4. Graves disease Treating with methimazole 5 mg q.d. 5. Vascular dementia with sundowning behavior Donepezil and memantine, Depakote 250 mg b.i.d. Quetiapine 25 mg at 4:00 p.m. daily for sundowning Citalopram 20 mg q.d. (follow due to QTC prolongation risk with quetiapine and citalopram). Evaluated on EKG today. Spouse looked into [facility] facility in [facility] 6. Epigastric pain with N/V. NPO, IV fluids, pantoprazole IV. Pending MBS. Care Management, discussed with spouse to get him in to SNF short-term stay rehab and then to a memory care facility for long-term care Time Spent With Patient Critical Care time: I spent a total of [] minutes of critical care time on this patient's care today; this time is exclusive of procedural time.
[2022-04-23] MEDS: DEXTROSE 5%-0.9% NS 1,000 ML 84 ML IV (14:04)
[2022-04-23] MEDS: QUETIAPINE 25 MG TABLET PO (17:23)
--- NOTE | 2022-04-23 17:24 | ST.SWALLOW ---
Visit Care Team Role Provider Type Jarrell Maldonado MD Referring Provider Physician Specialty: Emergency Medicine Address: [address] [place] [address], [id number] Email: [email or web address] DO Emergency Provider Physician Specialty: Emergency Medicine Address: [address] [place] [address], [id number] Email: [email or web address] Carson Askew MD Admit Provider Physician Attending Provider Specialty: Internal Medicine Address: [address] [place] [address], [address] Email: [email or web address] Modified Barium Swallow Study GRAIN CLEANER Modified Barium Swallow Study Start: 04/23/22 14:47 Freq: Status: Active Protocol: Document 04/23/22 15:02 ZS (Rec: 04/23/22 15:18 ZS [id number]) Modified Barium Swallow Study Total Time Visit Start Time 14:30 Visit Stop Time 15:00 Total Visit Minutes 30 Setting Setting Acute Care Patient Information Identification Type Name,ID Wristband Patient History Per H&P: 76-year-old male with history of CAD, prior coronary stents, LBBB, vascular dementia, Graves disease with ophthalmopathy, ocular myasthenia gravis, right eye severe vision loss, BREA initially presented to ED on April 19 after an unwitnessed ground level fall at home. Patient lives with spouse who is sole caregiver. She had left the house for just about an hour when returned home and found him down on the garage floor. Medics were called and noted he had a near-syncopal episode with standing him up. He was brought to the emergency department. In the ED noted to have mildly elevated troponin with significant increasing levels consistent with acute PA. EKG showed prior left bundle branch block. Patient has advanced dementia and does not recall circumstances around the fall. He was at PCP office 2 days prior complaining of left upper abdominal pain after eating and prescribed sucralfate which he had not yet started. On further discussion with his spouse, it became apparent that his quality of life is so diminished with his advanced dementia that cardiac catheterization may not be best option. Spouse does note that patient's cognitive and physical functioning has been declining over last several years and he needs help with bathing, dressing, has been gradually losing weight and as well as has worsening gait with history of falls. Spouse also notes that patient was started on Depakote just recently by his neurologist for where he is getting agitated and verbally abusive. Subjective Observations Pt was seated in procedure chair and positioned by [employer] for the assessment. He exhibited confusion regarding where he was and why he was here. Re-oriented pt to procedure and describe process involved in assessment. Pt agreed to participate. Patient Positioning Position View Lateral Imaging Lateral View Textures Administered Trials Presented Thin Liquid via Spoon,[place] Liquid via Spoon,Honey Liquid via Spoon,Regular Textures Oral Phase Source: MBSIMP (TM) (C) Bolus Specific Scoring Grid Lip Closure Severe Impairment Tongue Control During Bolus Hold Moderate Impairment Bolus Prep/Mastication WFL Bolus Transport/Lingual Motion No Impairment (WNL) Oral Residue Mild Impairment Residue Clearing WFL Nasal Regurgitation No Additional Oral Phase Observations Pt exhibited anterior loss of bolus and demonstrated posterior loss of about half of the bolus prior to a/p tongue movement. Mastication and a/p tongue propulsion of bolus was WFL. Mild-moderate oral residue observed following all trials. Pharyngeal Phase Source: MBSIMP (TM) (C) Bolus Specific Scoring Grid Delayed Initiation of Pharyngeal Swallow Yes: bolus head in pyriforms Soft Palate Elevation No Impairment (WNL) Tongue Base Strength/Range of Motion Mild Impairment Residue Along the Tongue Base Yes Clearance of Residue Along Tongue Base Severe Impairment Laryngeal Elevation Moderate Impairment Anterior Hyoid Movement WFL Epiglottic Range of Motion Moderate Impairment Vallecular Residue Yes Clearance of Vallecular Residue Severe Impairment Laryngeal Vestibular Closure Moderate Impairment Pharyngeal Stripping Wave Mild Impairment Posterior Pharyngeal Wall Residue No Upper Esophageal Sphincter Opening Minimal Impairment Residue in the Pyriform Sinuses Yes Clearance of Residue in the Pyriform Severe Impairment Sinuses Additional Pharyngeal Phase Observations Pt exhibited delayed swallow initiation, with the head of the bolus in the pyriforms. Anterior movement of hyoid was WNL, though epiglottic inversion and laryngeal vestibular closure were moderately impaired. His epiglottic appeared to contact the posterior pharyngeal wall , impeding movement which resulted in partial closure of laryngeal vestibule. Following swallow of thin liquid from spoon, pt exhibited residue on the posterior surface of his epiglottis, which he penetrated (PAS 3) following completion of the swallow. Aspiration observed on nectar thick liquids as well (PAS 3), but not on honey thick liquids or solid trials. Pt presented with cough during assessment, but cough did not correspond to episodes of observed penetration. Cough may be due to possible aspiration on residue between trials. Pt exhibited significant residue in valleculae and pyriforms following all trials and he was unable to clear despite cues from clinician. Did not complete a/p view as pt was not steady standing on his own . A/P View Clinical Impressions Dysphagia Type Oropharyngeal Dysphagia Findings The pt presents with moderately-severe oropharyngeal dysphagia characterized by excessive pharyngeal residue, impaired airway protection, and delayed swallow initiation. Pt has severe dementia, which negatively impacts his ability to follow directions. No significant difference between thin and nectar thick liquids and residue was observed across all trials. Penetrations observed were small quantities and often from residue rather than during swallow. Recommend thin liquids and dysphagia mechanical diet with pills crushed in carrier. Monitor pt for clinical signs of aspiration and modify diet as needed. Pt would benefit from 1:1 feeding assistance with pauses every 3-4 swallows and reminders to swallow a second time following each bite to help clear residue. Rehabilitation Potential Fair Patient Appropriate for Therapy Yes Recommendations Diet Liquids Order Thin Diet Order Dysphagia Mechanical Medication Recommendation Crushed in Carrier Aspiration Precautions Recommended Precautions Upright at 90 Degrees,Frequent Rest Periods,Small Bites/Sips ,Double Swallow,Liquids from Spoon Treatment Plan Compensatory Strategies Recommendations Sitting Upright (90 deg), Double Swallow,Liquids from Spoon,Small Bites and Sips Short Term Goals 1. Pt will follow safe swallow strategies given verbal reminders during meals. Prison Goals Pt will safely tolerate least restrictive diet to meet his nutrition and hydration needs. Placement Recommendation After Discharge [facility]
[2022-04-23] MEDS: PANTOPRAZOLE 40 MG VIAL IV (21:40)
[2022-04-23] MEDS: DONEPEZIL 5 MG TABLET 10 MG PO (21:40)
[2022-04-23] MEDS: DIVALPROEX DR 250 MG TABLET PO (21:40)
[2022-04-24 00:09] VITALS: BP 133/55; PULSE 75; RESP 18; TEMP 36.7; O2SAT 94
[2022-04-24 05:00] VITALS: BP 141/73; PULSE 82; RESP 18; TEMP 36.7; O2SAT 98
[2022-04-24] MEDS: PANTOPRAZOLE 40 MG VIAL IV ×2 (08:20→22:07)
[2022-04-24 08:37] VITALS: BP 148/97; PULSE 78; RESP 21; TEMP 36.5; O2SAT 96
--- NOTE | 2022-04-24 12:10 | CM.DPC ---
Addendum entered by ERAN Lee 04/24/22 15:23: ADD: Per Maria Luisa at [facility], they scheduled DME delivery for tomorrow 04/25 to [facility] and completed Info Visit via phone with spouse who is agreeable to sign their consents and have Hospice at d/c. SW received [facility] admit pwk and completed and got MD signature on pwk and faxed back to [facility]. Per MD, pt could likely d/c prior to [facility] opening on Sat. BLS form completed in case non-emergency ambulance needed for transport but attempted to meet bedside with spouse to discuss ambulance vs private vehicle at d/c as pt awake and stable and BLS may not be covered by insurance but spouse was on the phone. Plan: SW to follow closely with MD and spouse tomorrow to determine pt d/c Thurs or Fri to [facility] via BLS vs Private vehicle. SW to follow in the AM with [facility] to confirm they have what they need for admission and to fax d/c summary and meds to [facility] at discharge. ERAN Lee Original Note: DCP Hospice Planning Per MD, due to pt's advanced dementia and inability to safely tolerate PO intake, pt is appropriate for Com[facility] Care. Per RN, had lengthy discussion with spouse regarding Hospice and comfort care and spouse now in agreement with comfort measures. ST had attempted Modified barium swallow and pt was unable to complete and ST to attempt again today if appropriate but was recommended NPO for now and ST had initially recommended thin liquids, dysphagia mechanical diet. PAULINA spoke to Elaina from [facility] [phone] and confirmed she completed assessment with pt and spouse today around 1100 and had lengthy discussion regarding their facility and support as well as their recommendation of [facility] as well and spouse strongly in agreement that this would be the best d/c plan and spouse agreeable with discharge plan of d/c to [facility] with [facility]. Elaina states they have an opening now and can accept the pt in the next day or so but preference would be d/c when [facility] could deliver DME especially hospital bed but aware that this is pending Hospice availability and how quickly they can make that happen and that pt cannot remain in the hospital for much longer awaiting this. Elaina states she will have office staff Nadia or Karlie fax over admission pwk to be signed by Hospitalist in anticipation of pt being accepted at their facility soon. SW made [facility] referral and faxed clinicals to review and left msg for intake regarding above information. Plan: SW to follow closely for [facility] review of new referral to determine when they can deliver DME and open pt to service towards ongoing coordination with [facility] and completing the admission pwk and faxing back to [facility]. SW to follow for likely BLS transport needed at d/c to [facility]. ERAN Lee
--- NOTE | 2022-04-24 12:19 | SLP.IPNOTE ---
Pt is not appropriate for speech therapy treatment today. Per NSG, pt did not swallow water this morning, but let it sit in his mouth. Pt's diet order changed to NPO at that time for swallow safety. Discussed results of modified barium swallow study and plan of care given pt's diagnosis of dementia, current level of functioning, and swallow safety. Recommended hospice and comfort feeds at this time as pt is not a good candidate for tube feeding and is exhibiting increased risk for aspiration with all textures. was in agreement. Informed hospitalist of conversation. Hospitalist to discuss plan of care with this afternoon to determine treatment.
--- NOTE | 2022-04-24 12:38 | PM.PN.1 ---
Subjective Subjective Interval history: Patient comfortable and having no complaints on his own. MBS shows all eating is at risk and therefore diet made thin fluids easy to chew. 's discussion with care team has resulted in decision to go the palliative care route once discharge to [facility] (name?). He has been accepted there with the palliative care approach. It is in the process of being arranged and will likely occur tomorrow. Exam Vital Signs (past 8 hours): - 04/24/22 05:00 04/24/22 08:37 Temperature 98.1 F 97.7 F Pulse Rate 82 78 Respiratory Rate 18 21 Blood Pressure 141/73 H 148/97 H Pulse Oximetry 98 96 Oxygen Delivery Method Room Air Oxygen Flow Rate 0 Const General: cooperative and comfortable HENMT Head: normal to inspection Resp Auscultation: clear to auscultation bilaterally Cardio Rate: regular rate Rhythm: regular rhythm Heart Sounds: S1 normal and S2 normal GI Inspection: normal to inspection Palpation: soft Neuro Cognition: abnormal cognition Speech: abnormal speech Other: Severe dementia affecting general functions including ability to swallow and speak. Unable to find words to talk clearly. Extrem General: normal to inspection Objective Labs Result Diagrams: 04/22/22 05:08 04/22/22 05:08 [facility] Medical History Actinic keratosis Anterior spinal artery compression syndromes, cervical region BPH w urinary obs/LUTS CAD (coronary artery disease) (~2001) Cervical spinal stenosis Chest pain Chronic diarrhea Chronic left-sided low back pain with left-sided sciatica Chronic seasonal allergic rhinitis COPD (chronic obstructive pulmonary disease) (~2009) Dementia Depression (~2015) Diarrhea Eczema Encounter for routine history and physical examination Enlarged prostate Exophthalmos of right eye Glaucoma Graves disease (~2004) Gum disease H/O nephrolithotomy with removal of calculi Hearing loss History of bronchitis History of migraine Hypercholesterolemia Hyperlipidemia Hypertension (~2005) Kidney stones Left knee pain Left upper quadrant abdominal pain Left ureteral stone Obesity (BMI 30-39.9) Obstructive sleep apnea Ocular myasthenia gravis Osteoarthritis Ptosis of eyelid, left Right hydrocele Screen for colon cancer Thyroid disease Thyroid nodule (~2016) Vascular dementia Vision loss (~1945) Surgical History Anesthesia H/O circumcision History of blepharoplasty (~04/23/17) History of cataract removal with insertion of prosthetic lens (~2015) History of coronary artery stent placement (~2004) History of eye surgery (~01/03/15) History of placement of stent in anterior descending branch of left coronary artery (~2009) History of strabismus surgery (~2002) History of total knee replacement (~09/24/18) Previous back surgery (~2005) Family History Father Accident Mother History of heart disease Sister Cancer Social History marital status: household members: spouse lives independently: Yes caregiver/support person: Yes () housing: house other: gardening, working in his shop Smoking Status: Former smoker alcohol intake: current caffeine: Yes Assessment & Plan Assessment & Plan narrative: 1. NSTEMI - on heparin for 48-72 hours - will stop, ASA 81 mg, metoprolol 12.5 mg b.i.d., atorvastatin 40 mg daily, lipid panel ordered. Spouse not wanting cardiac cath. Troponin is decreasing. ECHO show decreased ejection fraction. Due to plan to transition to palliative care. No further workup planned. 2. Ground level fall Has worsening mobility, head CT no acute, PT/OT 3. Hypertension, control could be better. On lisinipril 5 mg daily. Increase to 10 mg daily. Currently variable control and no further tightness in control will done due to plan to transition to Palliative care. Metoprolol will be of benefit as well. 4. Graves disease Treating with methimazole 5 mg q.d. 5. Vascular dementia with sundowning behavior Donepezil and memantine, Depakote 250 mg b.i.d. Quetiapine 25 mg at 4:00 p.m. daily for sundowning Citalopram 20 mg q.d. (follow due to QTC prolongation risk with quetiapine and citalopram). Evaluated on EKG today. Spouse looked into [facility] memory care facility in [facility] 6. Epigastric pain with N/V. NPO, IV fluids, pantoprazole IV. MBS done. Now eating at risk with thin fluids and easy to chew food. Care Management, discussed with spouse to get him in to SNF for palliative care. Plan for discharge likely tomorrow. Time Spent With Patient Critical Care time: I spent a total of [] minutes of critical care time on this patient's care today; this time is exclusive of procedural time.
[2022-04-24] MEDS: DEXTROSE 5%-0.9% NS 1,000 ML 84 ML IV (15:34)
[2022-04-24] MEDS: QUETIAPINE 25 MG TABLET PO (15:43)
--- NOTE | 2022-04-24 17:37 | PT.IPTN ---
Current Diagnoses Non-ST elevation (NSTEMI) myocardial infarction (04/21/22) Physical Therapy Treatment Note M2 PT-IP Current Condition Start: 04/22/22 10:26 Freq: NEEDED Status: Active Protocol: Document 04/22/22 11:24 AMB (Rec: 04/22/22 11:38 AMB [id number]) Physical Therapy Current Condition Current Condition Evaluation Date 04/22/22 Treatment Diagnosis GLF/vascular dementia Onset Date 04/19/22 M3 PT-IP Subjective Start: 04/22/22 10:26 Freq: NEEDED Status: Active Protocol: Document 04/24/22 17:36 AB (Rec: 04/24/22 17:37 AB [id number]) Subjective Physical Therapy Visit Type Type Administrative Note Notes No PT services needed as Pt will be going to hospice care per behavioral health case manager. M7 PT-IP Assessment and Plan Start: 04/22/22 10:26 Freq: NEEDED Status: Active Protocol: Document 04/24/22 17:36 AB (Rec: 04/24/22 17:37 AB [id number]) PT Summary Assessment and Plan Frequency of Treatment Frequency Of Treatment Discharge
[2022-04-24 18:00] VITALS: BP 150/66; PULSE 79; RESP 20; TEMP 36.7; O2SAT 95
[2022-04-24 21:25] VITALS: BP 149/72; PULSE 87; RESP 18; TEMP 36.9; O2SAT 94
[2022-04-24] MEDS: METOPROLOL IR 25 MG TABLET 12.5 MG PO (22:04)
[2022-04-24] MEDS: DIVALPROEX DR 250 MG TABLET PO (22:07)
[2022-04-24] MEDS: DONEPEZIL 5 MG TABLET 10 MG PO (22:07)
[2022-04-25 00:16] VITALS: BP 150/73; PULSE 80; RESP 18; TEMP 36.7; O2SAT 94
[2022-04-25] MEDS: DEXTROSE 5%-0.9% NS 1,000 ML 84 ML IV ×2 (03:17→15:15)
[2022-04-25 04:25] VITALS: BP 125/73; PULSE 65; RESP 18; TEMP 36.8; O2SAT 95
[2022-04-25 08:30] VITALS: BP 129/66; PULSE 75; RESP 22; TEMP 36.9; O2SAT 99
--- NOTE | 2022-04-25 11:07 | SLP.IPNOTE ---
Pt to discharge on hospice to [facility] tomorrow. Per hospitalist, pt to be placed on comfort care. Discharging from speech therapy at this time.
--- NOTE | 2022-04-25 12:16 | CM.DPC ---
DCP Cont. DCP spoke with [facility] to confirm all necessary paperwork and to confirm that [facility] is delivering the bed and wheelchair today. Per Nadia @ , they would like to ensure the bed and wheelchair are here before discharge and requesting pt to have a d/c tomorrow 04/26/22 for safety. DCP verbalized understanding and would coordinate transport via BLS for 04/26/22. Nadia requested POLST form and DCP faxed that to her. DCP spoke with [facility] and they want to try and assess pt tomorrow between 10 or 11am. DCP set up BLS transport for 1000 tomorrow morning. Verbalized this to Lena at [facility], she verbalized she would have the RN there closer to 11. DCP updated [facility] with transport time as well. DCP spoke with the family bedside and informed them of plan for discharge tomorrow and transport at 1000. Pt spouse receptive and agreeable. No other questions or concerns at this time. P: Pt to discharge tomorrow 04/26/22 via BLS transport to [facility] . DCP to continue to follow. Delicia Gray, RN/DCP
[2022-04-25] MEDS: QUETIAPINE 25 MG TABLET PO (15:03)
--- NOTE | 2022-04-25 15:17 | PC.NURSE ---
Pt cleaned up and brief changed. Mouth care provided. Pt is calm and cooperative. Sat Pt straight up in bed and gave him his Seroquel crushed in applesauce with apple juice to clear his mouth and he did very well. Bed alarm on for safety and reminded Pt to call for assistance as needed and showed him the red button to push to call for help.
[2022-04-25 17:00] VITALS: BP 137/66; PULSE 82; RESP 20; TEMP 36.8; O2SAT 97
--- NOTE | 2022-04-25 19:33 | PM.PN.1 ---
Subjective Subjective Interval history: Patient somewhat more agitated today. Patient's and her sister came in saying for him and that helped. Awaiting placement tomorrow for hospice care as comfort care only at SNF. Exam Vital Signs (past 8 hours): - 04/25/22 17:00 Temperature 98.3 F Pulse Rate 82 Respiratory Rate 20 Blood Pressure 137/66 Pulse Oximetry 97 Oxygen Delivery Method Room Air Oxygen Flow Rate 0 Narrative Exam Narrative: In no acute distress. Somewhat agitated and moving arms as if he is agitated. Has transition to comfort care palliative feeding. Requiring increased typing for restlessness. Objective Labs Result Diagrams: 04/22/22 05:08 04/22/22 05:08 [facility] Medical History Actinic keratosis Anterior spinal artery compression syndromes, cervical region BPH w urinary obs/LUTS CAD (coronary artery disease) (~2001) Cervical spinal stenosis Chest pain Chronic diarrhea Chronic left-sided low back pain with left-sided sciatica Chronic seasonal allergic rhinitis COPD (chronic obstructive pulmonary disease) (~2009) Dementia Depression (~2015) Diarrhea Eczema Encounter for routine history and physical examination Enlarged prostate Exophthalmos of right eye Glaucoma Graves disease (~2004) Gum disease H/O nephrolithotomy with removal of calculi Hearing loss History of bronchitis History of migraine Hypercholesterolemia Hyperlipidemia Hypertension (~2005) Kidney stones Left knee pain Left upper quadrant abdominal pain Left ureteral stone Obesity (BMI 30-39.9) Obstructive sleep apnea Ocular myasthenia gravis Osteoarthritis Ptosis of eyelid, left Right hydrocele Screen for colon cancer Thyroid disease Thyroid nodule (~2016) Vascular dementia Vision loss (~1945) Surgical History Anesthesia H/O circumcision History of blepharoplasty (~04/23/17) History of cataract removal with insertion of prosthetic lens (~2015) History of coronary artery stent placement (~2004) History of eye surgery (~01/03/15) History of placement of stent in anterior descending branch of left coronary artery (~2009) History of strabismus surgery (~2002) History of total knee replacement (~09/24/18) Previous back surgery (~2005) Family History Father Accident Mother History of heart disease Sister Cancer Social History marital status: household members: spouse lives independently: Yes caregiver/support person: Yes () housing: house other: gardening, working in his shop Smoking Status: Former smoker alcohol intake: current caffeine: Yes Assessment & Plan Assessment & Plan narrative: 1. NSTEMI -Due to plan to transition to palliative care. No further workup planned. 2. Ground level fall prior to admission l Has worsening mobility, head CT no acute, PT/OT 3. Hypertension, acceptable control On lisinopril 10 mg daily. Metoprolol will be of benefit as well. 4. Graves disease Treating with methimazole 5 mg q.d. 5. Vascular dementia with sundowning behavior Donepezil and memantine, Depakote 250 mg b.i.d. Quetiapine 25 mg at 4:00 p.m. daily for sundowning and have increased also with 25 mg p.o. b.i.d. Spouse looked into [facility] memory care facility in [facility]. Patient will be transitioning there tomorrow. 6. Currently on palliative care food.. Time Spent With Patient Critical Care time: I spent a total of [] minutes of critical care time on this patient's care today; this time is exclusive of procedural time.
[2022-04-25 19:35] VITALS: BP 145/69; PULSE 90; RESP 18; TEMP 36.8; O2SAT 92
[2022-04-26] MEDS: DEXTROSE 5%-0.9% NS 1,000 ML 84 ML IV (04:06)
--- NOTE | 2022-04-26 08:51 | PM.DS.1 ---
History of Present Illness History of Present Illness Date Patient Seen: 04/26/22 Chief complaint: Fall Narrative: Patient alert and interactive. However no meaningful conversation. Patient does indicate that he is in no pain however. Appears to be in no distress at this time. However had an episode of persistent coughing following a pill swallow. Patient is currently NPO until his transfer to [facility] where he can be transitioned to Palliative diet at risk and pill should be crushed and given with apple sauce.. Discharge Providers Provider Date of admission: 04/21/22 13:37 Discharge Date: 04/26/22 Consults: 04/22/22 11:00 Consult to Occupational Therapy Evaluate & Treat Comment: Physician Instructions: Evaluate and treat Consult to Physical Therapy Evaluate & Treat Comment: Physician Instructions: Evaluate and Treat 04/23/22 08:49 Consult to Speech Therapy Evaluate & Treat Comment: coughing with meals Physician Instructions: Evaluate and treat Discharge provider: Melody Navarrete MD Summary Hospital Course Discharge Diagnosis: Dementia with end of life care. Hospital Course: 76-year-old male with history of CAD, prior coronary stents, LBBB, vascular dementia, Graves disease with ophthalmopathy, ocular myasthenia gravis, right eye severe vision loss, BREA initially presented to ED on April 19 after an unwitnessed ground level fall at home.? Patient lives with spouse who is sole caregiver.? She had left the house for just about an hour when returned home and found him down on the garage floor.? Medics were called and noted he had a near-syncopal episode with standing him up.? He was brought to the emergency department.? In the ED noted to have mildly elevated troponin with significant increasing levels consistent with acute HI.? EKG showed prior left bundle branch block.? Patient has advanced dementia and does not recall circumstances around the fall.? Patient initially treated for an NSTEMI with heparin infusion and beta-blockers. did not want anything other than medical management of the NSTEMI. Echo demonstrated that left ventricle is normal in size and wall thickness. Left ventricular ejection fraction is estimated to be 35 +/- 5%. There is a marked dyssynchronous contraction pattern, consistent with a conduction abnormality. Difficult to rule out segmental hypokinesis due to significant dyssynchronous pattern. Diastolic parameters suggest a relaxation abnormality of the left ventricle, consistent with probable normal filling pressures. ? The right ventricle is normal in size and function. Patient continued to have progressive problems with swallowing during the hospital stay. Modified barium swallow was completed and the findings showed silent laryngotracheal aspiration with thin liquids and pathologic bilateral vallecular pooling.? Because of this the patient should be given any medication that is by mouth being crushed and with applesauce if possible. During the hospital stay, there was discussion with the , and her wishes were to transition to hospice care at [facility]. This was arranged and the patient is being discharged. Status at Discharge Cognitive/behavioral status at discharge: at baseline, confused and agitated Exam Vital Signs (past 8 hours): Oxygen Delivery Method Room Air Oxygen Flow Rate 0 Narrative Exam Narrative: Patient alert and cooperative. Interactive but difficult to communicate with the patient due to his inability to express himself. Patient is clearly not in any pain. He did express that he slightly hungry. HENMT Head: normal to inspection Eyes Other: Dysfunctional right eye. Resp Effort & Inspection: normal respiratory effort Auscultation: clear to auscultation bilaterally Cardio Rate: regular rate Rhythm: regular rhythm Heart Sounds: S1 normal and S2 normal GI Inspection: normal to inspection Palpation: soft Neuro Cognition: abnormal cognition Psych Other: Intermittent agitation. Objective Labs Result Diagrams: 04/22/22 05:08 04/22/22 05:08 [facility] Medical History Actinic keratosis Anterior spinal artery compression syndromes, cervical region BPH w urinary obs/LUTS CAD (coronary artery disease) (~2001) Cervical spinal stenosis Chest pain Chronic diarrhea Chronic left-sided low back pain with left-sided sciatica Chronic seasonal allergic rhinitis COPD (chronic obstructive pulmonary disease) (~2009) Dementia Depression (~2015) Diarrhea Eczema Encounter for routine history and physical examination Enlarged prostate Exophthalmos of right eye Glaucoma Graves disease (~2004) Gum disease H/O nephrolithotomy with removal of calculi Hearing loss History of bronchitis History of migraine Hypercholesterolemia Hyperlipidemia Hypertension (~2005) Kidney stones Left knee pain Left upper quadrant abdominal pain Left ureteral stone Obesity (BMI 30-39.9) Obstructive sleep apnea Ocular myasthenia gravis Osteoarthritis Ptosis of eyelid, left Right hydrocele Screen for colon cancer Thyroid disease Thyroid nodule (~2016) Vascular dementia Vision loss (~1945) Surgical History Anesthesia H/O circumcision History of blepharoplasty (~04/23/17) History of cataract removal with insertion of prosthetic lens (~2015) History of coronary artery stent placement (~2004) History of eye surgery (~01/03/15) History of placement of stent in anterior descending branch of left coronary artery (~2009) History of strabismus surgery (~2002) History of total knee replacement (~09/24/18) Previous back surgery (~2005) Family History Father Accident Mother History of heart disease Sister Cancer Social History marital status: household members: spouse lives independently: Yes caregiver/support person: Yes () housing: house other: gardening, working in his shop Smoking Status: Former smoker alcohol intake: current caffeine: Yes Discharge Assessment & Plan Assessment and Plan Assessment: Patient recovering from NSTEMI who due to his progression of dementia is going to be discharged to [facility] for hospice care. Plan of Treatment: Discharge to [facility] for hospice care Discharge Plan Discharge Plan Other facility: [facility] Under care of provider: Hospice Care Provider Discharge Comment: Transition to Hospice Care. Difficulty on AM of transfer with significant coughing with swallowing a pill. Can be Palliative Diet at risk after transfer. Crush pills when needed. Discharge orders & Medications Discharge Orders: Discharge (Order); Ordered 04/26/22 Ordered By: Melody Navarrete Prescriptions: New quetiapine 25 mg Tablet 25 mg PO BID Qty: 10 0RF quetiapine 25 mg Tablet 25 mg PO DAILY@1600 Qty: 5 0RF divalproex 250 mg Tablet,Delayed Release (Dr/Ec) 250 mg PO BID Qty: 10 0RF methimazole 5 mg Tablet 5 mg PO DAILY Qty: 5 0RF lisinopril 5 mg Tablet 5 mg PO DAILY Qty: 5 0RF Continued albuterol sulfate 90 mcg/actuation HFA aerosol inhaler 2 puff INHALATION Q6H PRN (Reason: shortness of breath or wheezing) Qty: 18 11RF lisinopril 5 mg tablet 5 mg PO DAILY Qty: 90 3RF Spiriva with HandiHaler 18 mcg capsule, w/inhalation device See Rx Instructions .ROUTE .COMPLEX Qty: 90 0RF Dose Instruction: PLACE 1 CAPSULE INTO INHALER AND INHALE DAILY Rx Instructions: PLACE 1 CAPSULE INTO INHALER AND INHALE DAILY methimazole 5 mg tablet See Rx Instructions .ROUTE .COMPLEX Qty: 90 0RF Dose Instruction: TAKE ONE TABLET BY MOUTH ONCE DAILY Rx Instructions: TAKE ONE TABLET BY MOUTH ONCE DAILY citalopram 40 mg tablet See Rx Instructions .ROUTE .COMPLEX Qty: 90 0RF Dose Instruction: TAKE ONE TABLET BY MOUTH ONCE DAILY Rx Instructions: TAKE ONE TABLET BY MOUTH ONCE DAILY divalproex 250 mg tablet,delayed release (DR/EC) 250 mg PO BEDTIME 0RF Discontinued amlodipine 5 mg tablet 5 mg PO DAILY Qty: 90 3RF donepezil 10 mg tablet See Rx Instructions .ROUTE .COMPLEX Qty: 90 2RF Dose Instruction: TAKE ONE TABLET BY MOUTH AT BEDTIME Rx Instructions: TAKE ONE TABLET BY MOUTH AT BEDTIME alfuzosin 10 mg tablet extended release 24 hr 10 mg PO .hs Qty: 90 0RF Rx Instructions: Next refill should be managed by PCP. vitamin B complex [B Complex-Vitamin B12] Tablet 1 tab PO DAILY 0RF memantine 10 mg tablet 10 mg PO BID Qty: 180 3RF clotrimazole-betamethasone 1-0.05 % cream 1 applic TOP BID 14 Days Qty: 45 1RF rosuvastatin 5 mg tablet 5 mg PO DAILY Qty: 90 3RF sildenafil 100 mg tablet 100 mg PO DAILY PRN (Reason: Erectile Dysfunction) Qty: 10 5RF (DME) Disabled Parking Permit See Rx Instructions .Route .MEDSUPPLY Qty: 1 0RF Rx Instructions: As directed aspirin 81 mg Tablet,Delayed Release (Dr/Ec) 81 mg PO DAILY 0RF (DME) [employer] Auto BIPAP See Rx Instructions .Route .MEDSUPPLY 0RF Rx Instructions: Max IPAP: 14 Min EPAP: 6 PS: 6 DME: [facility] Discharge Health Status Precautions: [place] Diet/Activity/Treatments Diet comment: Patient NPO at this moment, transition to Palliative Diet at risk
[2022-04-26 09:21] VITALS: BP 149/65; PULSE 90
--- NOTE | 2022-04-26 10:36 | PC.NURSE ---
Pt is AxOx1, cooperative and calm. VSS, no s/s pain or any discomfort noted. Pt d[facility] by [facility] for bospice care. Pt's was present and left earlier to go the facility. D/c packet given to the ambulance personnel. IV removed. No other changes.
--- NOTE | 2022-04-26 10:40 | CM.DPC ---
DCP cont. P: Pt has been discharged to [facility] this morning around 1000 via BLS transport. [facility] has sent d/c summary and med list to both [facility] and [facility] . No other needs identified at this time. Delicia Gray RN/[facility]
== END 2022-04-26 10:40 | DRG 281 ==
LOC: ED 04-20 19:45 → AC 04-21 13:37
PROVIDERS: Emergency Medicine; Internal Medicine; Neuromusculoskeletal Medicine, Sports Medicine; Admitting Provider Internal Medicine; Emergency Provider Emergency Medicine; Referring Provider Emergency Medicine; Visit Provider Internal Medicine
DX: I21.4 Non-ST elevation (NSTEMI) myocardial infarction (principal); F05 Delirium due to known physiological condition; E05.00 Thyrotoxicosis with diffuse goiter without thyrotoxic crisis or storm; F01.50 Vascular dementia, unspecified severity, without behavioral disturbance, psychotic disturbance, mood disturbance, and anxiety; I44.7 Left bundle-branch block, unspecified; T17.928A Food in respiratory tract, part unspecified causing other injury, initial encounter; I25.10 Atherosclerotic heart disease of native coronary artery without angina pectoris; I10 Essential (primary) hypertension; F32.A Depression, unspecified; W18.30XA Fall on same level, unspecified, initial encounter; Z66 Do not resuscitate; Z20.822 Contact with and (suspected) exposure to COVID-19; Z87.891 Personal history of nicotine dependence; Z95.5 Presence of coronary angioplasty implant and graft
CPT/HCPCS: 36415; 70450; 71045; 71275; 74230; 80048; 80053; 80061; 81003; 81015; 82550; 82553; 83690; 83735; 83880; 84484; 85025; 85610; 85730; 87086; 87635; 92610; 92611; 93005; 93306; 96365; 96366; 96376; 97162; 97166; 97530; 97535; 99285; 99291; 99292; C9803; C9113; J1644